=== PATIENT | female | born 1955 | race Caucasian/White ===

== ENCOUNTER → 2016-10-04 | Outpatient (CLI) | payer OTHER ==
[~2016-10-04] MED LIST: CALCTAB5 PO; CETI10TA84 PO; CHOL200010 PO; CPR/500 PO; HYDR12.55 PO; INDO-22 PO; INSDGI SC; IPRA1AER2 INH; IPRASOL4 INH; LEVO-438 PO; LISI-729 PO; METR-163 PO; MISCCAP80 PO; MONT1TAB5 PO; NVLGI SC; PANT40TA PO; QVRINH80 INH; SALI1SPR3 NAE; SIMV40TA4 PO; SUMA50TA15 PO; TNR25 PO
[2016-10-04 18:11] LABS: BASO % 0.6 %; BASO ABS # 0.05 K/uL (0-0.2); COMPLETE YES; EOS % 8.3 %; IG% 0.1 %; LYMPH ABS # 2.03 K/uL (1.2-3.4); MEAN CELL VOLUME 93.5 fL (80-100); MEAN CORPUSCULAR HEMOGLOBIN 30.9 pg (25-34); MEAN CORPUSCULAR HGB CONC 33.1 g/dl (32-36); MEAN PLATELET VOLUME 9.6 fL (7.4-10.4); MONO % 7.1 %; NEUT % 57.9 %; PLATELET COUNT 259 K/uL (130-400); RED BLOOD COUNT 4.17 M/uL (4.2-5.4)
[2016-10-04 18:36] LABS: ALT/SGPT 20 U/L (12-78); AST/SGOT 11 U/L (15-37); BLOOD UREA NITROGEN 27 mg/dl (7-18); BUN/CREATININE RATIO 22.2 (10-20); CALCIUM 8.8 mg/dl (8.5-10.1); CARBON DIOXIDE 32 mmol/L (21-32); CHLORIDE 102 mmol/L (98-107); GLUCOSE 206 mg/dl (70-99); SODIUM 138 mmol/L (136-145)
[2016-10-04 18:47] LABS: ALB/GLOB RATIO 1.2 (0.9-2); ALKALINE PHOSPHATASE 52 U/L (45-117); CHOLESTEROL 219 mg/dl (0-200); CHOLESTEROL/HDL RATIO 3.9; HDL CHOLESTEROL 56 mg/dl; LDL CHOLESTEROL CALCULATED 124 mg/dl; THYROID STIMULATING HORMONE 0.518 uIu/ml (0.300-4.500); TRIGLYCERIDES 196 mg/dl (0-150); VERY LOW DENSITY LIPOPROT CALC 39 mg/dl
[2016-10-06 06:34] LABS: ESTIMATED AVERAGE GLUCOSE 200 mg/dl; HA1C FLAG Normal (Normal)
== END | disposition home or self-care (01) ==
LOC: C.LAB 17:49
PROVIDERS: ATTEND Internal Medicine
DX: E11.65 Type 2 diabetes mellitus with hyperglycemia (principal); E55.9 Vitamin D deficiency, unspecified; D72.829 Elevated white blood cell count, unspecified; I10 Essential (primary) hypertension; E03.9 Hypothyroidism, unspecified

== ENCOUNTER → 2016-11-24 | Outpatient (CLI) | payer OTHER ==
[2016-11-24 16:39] LABS: RATIO 163.6 mcg/mg (0-30.0)
== END | disposition home or self-care (01) ==
LOC: C.LAB1850 15:20
PROVIDERS: ATTEND Internal Medicine
DX: R80.9 Proteinuria, unspecified (principal)

== ENCOUNTER → 2017-01-16 | Outpatient (CLI) | payer OTHER ==
[2017-01-16 13:58] LABS: CREATININE 1.03 mg/dl (0.60-1.20)
[2017-01-16 14:07] LABS: THYROID STIMULATING HORMONE 0.563 uIu/ml (0.300-4.500)
[2017-01-16 14:28] LABS: ESTIMATED AVERAGE GLUCOSE 200 mg/dl; HA1C FLAG Normal (Normal)
== END | disposition home or self-care (01) ==
LOC: C.LAB1850 11:55
PROVIDERS: ATTEND Nurse Practitioner Adult Health
DX: E03.9 Hypothyroidism, unspecified (principal); I10 Essential (primary) hypertension; E78.5 Hyperlipidemia, unspecified; E11.319 Type 2 diabetes mellitus with unspecified diabetic retinopathy without macular edema

== ENCOUNTER → 2017-02-09 | Outpatient (CLI) | payer OTHER ==
[2017-02-09 17:30] LABS: MAGNESIUM 2.2 mg/dl (1.8-2.4)
== END | disposition home or self-care (01) ==
LOC: C.LAB1850 15:01
PROVIDERS: ATTEND Physician Assistant
DX: R25.2 Cramp and spasm (principal)

== ENCOUNTER → 2017-05-28 | Outpatient (CLI) | payer OTHER ==
--- NOTE | 2017-05-29 08:03 | PULMONARY FUNCTION TEST ---
Interpretation of pulmonary function studies based off ATS criteria. SPIROMETRY QUALITY: Flow volume loops do show that the patient had overall poor flow volume loop study which suggests poor quality study. SPIROMETRY: Moderate restrictive ventilatory disease. BRONCHODILATOR: Possible significant bronchodilator response based off the FVC standards, once again overall poor pulmonary flow loop/spirometry. LUNG VOLUMES: Signs of hyperinflation. DIFFUSION CAPACITY: Within normal limits. INTERPRETATION: Suggest mixed obstructive and restrictive ventilatory disease with possible reversible component. MTDD
== END | disposition home or self-care (01) ==
LOC: C.RC 08:51
PROVIDERS: ATTEND Physician Assistant
DX: J45.909 Unspecified asthma, uncomplicated (principal)

== ENCOUNTER → 2017-06-15 | Outpatient (CLI) | payer OTHER ==
[~2017-06-15] MED LIST changes: +SALI-3 NAE; -SALI1SPR3 NAE
[2017-06-15 14:45] LABS: HEMOGLOBIN 13.3 g/dL (12.0-16.0)
[2017-06-15 15:14] LABS: ALBUMIN 3.7 gm/dl (3.4-5.0); ALT/SGPT 24 U/L (12-78); BLOOD UREA NITROGEN 21 mg/dl (7-18); CALCIUM 9.6 mg/dl (8.5-10.1); CARBON DIOXIDE 31 mmol/L (21-32); CHOLESTEROL 223 mg/dl (0-200); CREATININE 1.11 mg/dl (0.60-1.20); GLUCOSE 138 mg/dl (70-99); POTASSIUM 3.7 mmol/L (3.5-5.1); SODIUM 137 mmol/L (136-145)
[2017-06-15 15:20] LABS: CREATININE RANDOM URINE 36.3 mg/dl
[2017-06-15 15:24] LABS: ALKALINE PHOSPHATASE 56 U/L (45-117); AST/SGOT 15 U/L (15-37); LDL CHOLESTEROL CALCULATED 114 mg/dl; TOTAL PROTEIN 7.4 gm/dl (6.4-8.2)
[2017-06-16 06:22] LABS: HEMOGLOBIN A1C 8.4 % (4.5-5.6)
== END | disposition home or self-care (01) ==
LOC: C.LAB1850 13:34
PROVIDERS: ATTEND Nurse Practitioner Adult Health
DX: E11.29 Type 2 diabetes mellitus with other diabetic kidney complication (principal); E03.9 Hypothyroidism, unspecified; I10 Essential (primary) hypertension; E78.5 Hyperlipidemia, unspecified; R80.9 Proteinuria, unspecified; E11.319 Type 2 diabetes mellitus with unspecified diabetic retinopathy without macular edema; E11.65 Type 2 diabetes mellitus with hyperglycemia; E55.9 Vitamin D deficiency, unspecified; Z79.4 Long term (current) use of insulin

== ENCOUNTER → 2017-07-03 | Outpatient (CLI) | payer OTHER ==
[2017-07-03 16:21] LABS: BLOOD UREA NITROGEN 24 mg/dl (7-18); CALCIUM 9.4 mg/dl (8.5-10.1); CARBON DIOXIDE 30 mmol/L (21-32); CREATININE 1.25 mg/dl (0.60-1.20); GLUCOSE 270 mg/dl (70-99); POTASSIUM 4.1 mmol/L (3.5-5.1); SODIUM 137 mmol/L (136-145)
== END | disposition home or self-care (01) ==
LOC: C.LAB1850 15:04
PROVIDERS: ATTEND Nurse Practitioner Adult Health
DX: I10 Essential (primary) hypertension (principal); E78.5 Hyperlipidemia, unspecified; R80.9 Proteinuria, unspecified

== ENCOUNTER → 2017-10-02 | Outpatient (CLI) | payer OTHER ==
[~2017-10-02] MED LIST changes: +BECL80AE7 INH; +IPRA-64 INH; -IPRASOL4 INH; -QVRINH80 INH
--- NOTE | 2017-10-02 09:40 | DIAGNOSTIC IMAGING REPORT ---
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 FINDINGS: Right kidney: 10.9 cm. No hydronephrosis. Normal corticomedullary differentiation and cortical thickness. Left kidney: 11.0 cm. No hydronephrosis. Normal corticomedullary differentiation and cortical thickness. Bladder: No bladder wall thickening. The bilateral ureteral jets were identified. IMPRESSION: Normal renal ultrasound. Electronically signed by: Casimiro Mike M.D. 10/02/2017 9:39 AM Dictated Date/Time: 10/02/2017 9:39 AM
== END | disposition home or self-care (01) ==
LOC: C.ULTR 08:31
PROVIDERS: ATTEND Internal Medicine
DX: E11.29 Type 2 diabetes mellitus with other diabetic kidney complication (principal); E11.65 Type 2 diabetes mellitus with hyperglycemia; Z79.4 Long term (current) use of insulin

== ENCOUNTER 2019-01-15 14:08 | Inpatient (IN) ==
[2019-01-15] MEDS ORDERED: ONDANSETRON INJ 2 MG/ML 2 ML VIAL IV STA (14:24)
[2019-01-15] MEDS ORDERED: MoRPHine SULFATE 4 MG/ML 1 ML CARP\\VIAL IV PRN (14:24)
[2019-01-15] MEDS ORDERED: SODIUM CHLORIDE 0.9% 1000ML 1,000 ML IV SCH (14:30)
--- NOTE | 2019-01-15 14:34 | XRay Report ---
XR chest 1V portable CLINICAL HISTORY: cough COMPARISON STUDY: 01/11/2019 FINDINGS: The heart remains enlarged. There is mild pulmonary vascular congestion. There are mild bas ilar atelectatic changes. There is no lobar consolidation.[ IMPRESSION: No change from the prior study. Persistent mild pulmonary vascular congestion and basilar atelectasis. Electronically signed by: Dash Martinez M.D. 01/15/2019 2:33 PM
[2019-01-15 15:00] LABS: Basophils # (auto) 0.03 K/uL (0-0.2); Basophils % (auto) 0.4 %; Eosinophils # (auto) 0.19 K/uL (0-0.5); Eosinophils % (auto) 2.7 %; Hematocrit (blood only) 35.3 % (37-47); Hemoglobin 11.6 g/dL (12.0-16.0); Immature Granulocytes # (auto) 0.01 K/uL (0.00-0.02); Immature Granulocytes % (auto) 0.1 %; Lymphocytes % (auto) 15.9 %; Mean Corpuscular Hemoglobin 30.7 pg (25-34); Mean Corpuscular Hgb Conc 32.9 g/dL (32-36); Mean Corpuscular Volume 93.4 fL (80-100); Mean Platelet Volume 9.1 fL (7.4-10.4); Monocytes # (auto) 0.53 K/uL (0.11-0.59); Monocytes % (auto) 7.7 %; Neutrophils # (auto) 5.05 K/uL (1.4-6.5); Neutrophils % (auto) 73.2 %; Platelet Count 266 K/uL (130-400); RDW Coefficient of Variation 12.3 % (11.5-14.5); Red Blood Count 3.78 M/uL (4.2-5.4); White Blood Count 6.91 K/uL (4.8-10.8)
[2019-01-15 15:09] LABS: iSTAT Creatinine 1.5 mg/dl (0.6-1.3); iSTAT Hemoglobin 11.2 g/dl (12.0-16.0); iSTAT Ionized Calcium 1.16 mmol/l (1.12-1.32); iSTAT Potassium 3.5 mEq/L (3.3-5.0)
[2019-01-15 15:11] LABS: Partial Thromboplastin Ratio 0.9; Partial Thromboplastin Time 23.4 Seconds (21.0-31.0); Prothrombin Time 10.7 Seconds (9.0-12.0)
[2019-01-15 15:21] LABS: Alanine Aminotransferase 24 U/L (12-78); Albumin Level 3.6 gm/dl (3.4-5.0); Aspartate Aminotransferase 16 U/L (15-37); BUN Creatinine Ratio 13.8 (10-20); Blood Urea Nitrogen 20 mg/dl (7-18); Calcium 8.7 mg/dl (8.5-10.1); Carbon Dioxide 28 mmol/L (21-32); Chloride 98 mmol/L (98-107); Creatinine Clr Calc Pharmacy 39.2 ml/min; Est GFR (African American) 44.2; Est GFR (Non-African American) 38.1; Glucose 259 mg/dl (70-99); Lipase 239 U/L (73-393); Potassium 3.5 mmol/L (3.5-5.1); Sodium 135 mmol/L (136-145)
[2019-01-15 15:26] LABS: Alkaline Phosphatase 55 U/L (45-117); Bilirubin,Total 0.4 mg/dl (0.2-1); Globulin 3.5 gm/dl (2.5-4.0); Total Protein 7.1 gm/dl (6.4-8.2); Troponin I < 0.015 ng/ml (0-0.045)
[2019-01-15 15:49] LABS: Appearance Urine Clear (Clear); Bilirubin Urine Negative (Negative); Blood Urine Trace (Negative); Glucose Urine UA Negative (Negative); Ketones Urine Negative (Negative); Leukocyte Esterase Urine Trace (Negative); Nitrite Urine Negative (Negative); Protein Urine 1+ (Negative); Urobilinogen Urine Negative (Negative); pH Urine 5.5 (4.5-7.5)
[2019-01-15 15:52] LABS: Color Urine Yellow
--- NOTE | 2019-01-15 16:30 | Emergency Department Note ---
General (ED) Blank Date of Service January 15, 2019 I attest that I saw and examined this patient and participated in her care under the direction of Dr. Carvajal. Please see his note for clinical assessment and course. Resident Activity Tracking Resident Involvement: Resident Care Provided Care Provided: Adult ED
[2019-01-15] MEDS ORDERED: IOVERSOL 100ml IV PRN (17:02)
--- NOTE | 2019-01-15 17:15 | CT Scan Report ---
CT abd pelvis oral and IV con CLINICAL HISTORY: right sided pain COMPARISON STUDY: 01/13/2019 TECHNIQUE: The patient was scanned following administration of dilute oral contrast and in a dynamic helical fashion during intravenous administration of 93 cc of Optiray 320. A dose lowering technique was utilized adhering to the principles of ALARA. CT DOSE: 759.81 mGy.cm FINDINGS: Lower chest: There is progressive basilar interstitial thickening/atelectatic change. There are no si gnificant pleural effusions. Liver: There is hepatic steatosis. No focal masses are visualized. Gallbladder: Unremarkable. Spleen: The spleen is mildly enlarged measuring 13.5 cm Pancreas: Unremarkable. Adrenal glands: Unremarkable. Kidneys: There is symmetric renal cortical enhancement. The kidneys are normal in size without hydron ephrosis. Bowel: There are no transition zones to indicate bowel obstruction. There is colonic wall thickening with subtle infiltration of pericolonic fat involving the left colon from the level of the splenic fl exure to the proximal sigmoid. The findings are indicative of a nonspecific colitis. There is sigmoid diverticulosis but no evidence of acute sigmoid diverticulitis. There is no evidence of acute append icitis. Peritoneum: There is minimal free pelvic fluid. There is no free intraperitoneal air. Vasculature: The abdominal aorta is normal in course and caliber. No evidence of proximal celiac or s uperior mesenteric artery stenosis. The inferior mesenteric artery is patent. Adenopathy: None. Pelvic viscera: The bladder, and pelvic viscera are unremarkable. Skeletal structures: No destructive osseous lesions are seen. IMPRESSION: 1. Hepatic steatosis 2. Mild splenomegaly 3. Left colonic wall thickening indicative of a colitis.. 4. No evidence of bowel obstruction. No evidence of free air. Electronically signed by: Dash Martinez M.D. 01/15/2019 5:14 PM
[2019-01-15] MEDS ORDERED: KETOROLAC TROMETHAMINE 15 MG/ML VIAL IV ONE (17:36)
--- NOTE | 2019-01-15 19:05 | Emergency Department Note ---
Entered by Sandra Samaniego acting as a scribe for History of Present Illness General Chief complaint: Abdominal Pain Stated complaint: STOMACH PAIN Time Seen by Provider: 01/15/19 14:16 Source: patient History of Present Illness Onset (ago): day(s) 6 Location: abdomen Severity: severe and similar to prior episodes Pain Consistency: + other (persistent) Maximum Pain Intensity: 8 Quality: + other (abdominal pain) Relieved By: + medication (morphine) Exacerbated By: + movement and + other (coughing) Associated symptoms: + cough, + nausea/vomiting and + other (Positive cons tipation. Negative back pain.); no chest pain Treatments prior to arrival: none The patient is a 63 year old female presenting to the Emergency Department complaining of persistent abdominal pain starting 6 days ago. The patient report that she has severe right-sided abdominal pain. She states that she is nauseous and has vomited. She explains that she has a mild cough. She adds that she has experienced these symptoms before as she has been to the Emergency Room twice in the past week. The patient reports that she is dehydrated. She states that she was recently constipated. She explains that moving around and coughing worsen her abdominal pain. She states that she has been taking Excedrin for her symptoms that has not been helping. She notes that she has not been able to get an appointment with her PCP which is why she has been coming into the ED. She adds that she has an appointment with her PCP in 3 days but that she couldnt wait that long because of her pain. The patient reports that she received Morphine for her abdominal pain when she was last in the ED and that this medication made her feel better. She states that she didnt take any medications for her symptoms [employer]. She denies chest pain and back pain. Home Medications Home Medications Medication Instructions Recorded Confirmed Type ipratropium-albuterol 0.5 mg-3 3 ml INHALATION TID PRN #4 ml 09/16/18 01/15/19 Rx mg(2.5 mg base)/3 mL nebulization soln sumatriptan 50 mg tablet 50 mg PO Q2H PRN #10 tab 09/16/18 01/15/19 Rx arformoterol 15 mcg/2 mL solution 2 ml INH Q12H 10/08/18 01/15/19 History for nebulization fluticasone furoate 100 1 puffs INH DAILY PRN 10/08/18 01/15/19 History mcg-vilanterol 25 mcg/dose inhalation powder insulin glargine (U- 100) 100 30 units SQ HS ml 10/08/18 01/15/19 History unit/mL subcutaneous solution ipratropium 20 mcg-albuterol 100 1 puffs INH QID PRN 10/08/18 01/15/19 History mcg/actuation mist for inhalation methylprednisolone 4 mg tablet 4 mg PO DAILY PRN 10/08/18 01/15/19 History rosuvastatin 5 mg tablet 5 mg PO .COMPLEX tab 10/08/18 01/15/19 History sodium chloride 0.65 % nasal spray 1 sprays INTNAS BID PRN 10/08/18 01/15/19 History aerosol Humalog U- 100 Insulin 100 unit/mL 84 units SQ .COMPLEX #3 vial NS 11/12/18 01/15/19 Rx subcutaneous solution trazodone 50 mg tablet 50 mg PO HS PRN #30 tab 12/06/18 01/15/19 Rx amlodipine 5 mg PO QAM 01/11/19 01/15/19 History aspirin 81 mg PO QAM 01/11/19 01/15/19 History cetirizine 10 mg PO QAM 01/11/19 01/15/19 History chlorthalidone 25 mg PO QAM 01/11/19 01/15/19 History clonidine HCl 0.1 mg PO BID PRN 01/11/19 01/15/19 History guaifenesin [Mucinex] 600 mg PO QAM 01/11/19 01/15/19 History hydrochlorothiazide 12.5 mg PO QAM 01/11/19 01/15/19 History levothyroxine [Unithroid] 88 mcg PO QAM 01/11/19 01/15/19 History losartan 100 mg PO QAM 01/11/19 01/15/19 History montelukast 10 mg PO QAM 01/11/19 01/15/19 History pantoprazole 40 mg PO HS 01/11/19 01/15/19 History potassium chloride 20 meq PO HS 01/11/19 01/15/19 History sertraline 25 mg PO QAM 01/11/19 01/15/19 History dicyclomine 10 mg PO TID #15 cap 01/13/19 01/15/19 Rx ondansetron 4 mg PO Q6H PRN #20 tab 01/13/19 01/15/19 Rx Allergies Allergy/AdvReac Type Severity Reaction Status Date / Time bupropion Allergy Severe muscle Verified 01/15/19 15:45 pains and cramps prochlorperazine Allergy Intermediate restless Verified 01/15/19 15:45 codeine Allergy Mild GI Verified 01/15/19 15:45 INTOLERANCE erythromycin base Allergy Mild DIZZINESS Verified 01/15/19 15:45 levothyroxine Allergy Unknown HIVES Verified 01/15/19 15:45 metformin Allergy Unknown "METRFORMIN Verified 01/15/19 15:45 ALLERGY"?? mold Allergy Unknown CHEST Verified 01/15/19 15:45 CONGESTION paroxetine Allergy Unknown BAD DREAMS Verified 01/15/19 15:45 house dust Allergy Verified 01/15/19 15:45 lisinopril Allergy Verified 01/15/19 15:45 milk AdvReac Unknown GI DISTRESS Verified 01/15/19 15:45 Past Med/Surg History Medical History COPD, moderate (Acute) Chronic bronchitis (Acute) Chronic kidney disease, stage III (moderate) (Acute) Depression with anxiety (Acute) Dyslipidemia (Acute) Esophageal reflux disease (Acute) Hypertension (Acute 06/19/12) Headache, migraine (Acute) Hypertension (Acute) Hypothyroidism (Acute) Internal hemorrhoids (Acute) Microalbuminuria (Acute) Non-proliferative diabetic retinopathy, severe, both eyes (Acute) Osteopenia (Acute) Statin intolerance (Acute) Uncontrolled type 2 diabetes mellitus with kidney complication, with long-term current use of insulin (Acute) Uncontrolled type 2 diabetes mellitus with retinopathy, with long-term current use of insulin (Acute) Vitamin D deficiency disease (Acute) History of in vitro fertilization (Resolved) History of cellulitis History of female infertility History of gastrointestinal hemorrhage History of herpes zoster History of leukocytosis Surgical History H/O dilation and curettage (Resolved) History of incision and drainage (Resolved) H/O sinus surgery History of in vitro fertilization Family History Mother Coronary arteriosclerosis Diabetes CHF (congestive heart failure) Sister Diabetes CHF (congestive heart failure) Cardiac arrest Father Macular degeneration Hypertension Stroke Grandmother (Maternal) Breast cancer Social History marital status: Feels Safe at Home: Yes Smoking Status: Never smoker Hx Alcohol Use: No Hx Substance Use: No Seatbelt Use: always Review of Systems See HPI for pertinent positives & negatives. and A total of 10 systems reviewed and were otherwise negative Physical Exam Vital Signs Vital Signs - 24 hr 01/15/19 14:11 01/15/19 15:36 01/15/19 16:45 Temperature 36.6 C Temperature Source Oral Sepsis Recent Fever Within 48 Hours No Sepsis New/Unexplained Change in Mental Status No Sepsis Action Taken by Nursing No Action Required Pulse Rate 80 Pulse Rate [Left] 73 71 Pulse Rhythm [Left] Regular Respiratory Rate 18 16 20 Respiratory Effort / Characteristics Non-Labored Non-Labored Non-Labored Respiratory Depth Normal Normal Normal Respiratory Pattern Regular Regular Blood Pressure 147/85 H Blood Pressure [Left Arm] 123/80 177/99 H Blood Pressure Mean 105 Blood Pressure Mean [Left Arm] 94 125 Pulse Oximetry 97 96 93 Oxygen Delivery Method Room Air Room Air Room Air 01/15/19 18:20 Temperature Temperature Source Sepsis Recent Fever Within 48 Hours Sepsis New/Unexplained Change in Mental Status Sepsis Action Taken by Nursing Pulse Rate Pulse Rate [Left] 69 Pulse Rhythm [Left] Regular Respiratory Rate 20 Respiratory Effort / Characteristics Non-Labored Respiratory Depth Normal Respiratory Pattern Regular Blood Pressure Blood Pressure [Left Arm] 142/88 H Blood Pressure Mean Blood Pressure Mean [Left Arm] 106 Pulse Oximetry 92 Oxygen Delivery Method Room Air GENERAL: Patient is awake, alert, and in no acute distress.Patient is somewhat anxious appearing and uncomfortable. EYES: The conjunctivae are clear. The pupils are round and reactive. EARS, NOSE, MOUTH AND THROAT: The nose is without any evidence of any deformity. Mucous membranes are moist.Tongue is midline NECK: The neck is nontender and supple. RESPIRATORY: Normal respiratory effort is noted. There is no evidence of wheezing rhonchi or rales to auscultation. CARDIOVASCULAR: Regular rate and rhythm noted. There no murmurs rubs or gallops normal S1 normal S2 GASTROINTESTINAL: Mildly distended but soft. Right sided abdominal pain to palpation. No guarding or rigidity. Bowel sounds are present in all quadrants. BACK: No midline tenderness or or step-off noted range of motion in flexion ex tension as well as rotation no signs of muscle spasm noted. MUSCULOSKELETAL/EXTREMITIES: There is no evidence of gross deformity. Full range of motion is noted in the hips and shoulders. SKIN: There is no obvious evidence of any rash. There are no petechiae, pallor or cyanosis noted. NEUROLOGIC: Patient is awake alert and oriented x3. Course 1416: EMR reviewed. Recent Abdominal CT and Gallbladder US were normal. 1419: The patient was evaluated in room A9B, and a complete history and physical examination were performed. 1658: I reevaluated the patient at this time. 1820: I discussed the patient's case with Dr. Bonilla [facility] hospitalist. He will evaluate the patient for further management. Administered Medications Ioversol (Optiray 320 100ml) 93 ml IV ONCE PRN PRN Reason: Interaction Checking Stop: 01/19/19 17:01 Last Admin: 01/15/19 17:02 Dose: 93 ml Documented by: [id number] Morphine Sulfate (Morphine Sulfate) 4 mg IV Q15M PRN PRN Reason: Pain Stop: 01/29/19 14:23 Last Admin: 01/15/19 15:38 Dose: 4 mg Documented by: [id number] Discontinued Medications Sodium Chloride (Nss 1000ml) 1,000 mls @ 999 mls/hr IV .Q1H1M NATIVIDAD Stop: 01/15/19 15:30 Last Infusion: 01/15/19 16:44 Dose: 0 mls/hr Documented by: [id number] Admin: 01/15/19 15:39 Dose: 999 mls/hr Documented by: [id number] Ketorolac Tromethamine (Toradol) 10 mg IV NOW ONE Stop: 01/15/19 17:37 Last Admin: 01/15/19 17:56 Dose: 10 mg Documented by: [id number] Ondansetron HCl (Zofran) 4 mg IV NOW STA Stop: 01/15/19 14:25 Last Admin: 01/15/19 15:38 Dose: 4 mg Documented by: [id number] Medical Decision Making Differential Diagnosis Differential diagnoses includes but is not limited to gastritis, peptic ulcer disease, GERD, gallbladder disease, pancreatitis, small bowel obstruction, acute coronary syndrome, pericarditis, ischemic bowel, irritable bowel disease, irritable bowel syndrome, appendicitis, diverticulitis, malignancy, hernia, urinary tract infection, torsion, perforation, trauma, infectious. Medical Records Attestation: I reviewed the patient's medical records. Home Medications Current Medication List: was personally reviewed by me Laboratory Data Attestation: I reviewed the patient's lab results. Result diagrams: 01/15/19 14:50 01/15/19 14:50 Lab Results 01/15/19 01/15/19 01/15/19 Range/Units 14:50 14:50 14:50 WBC 6.91 (4.8-10.8) K/uL RBC 3.78 L (4.2-5.4) M/uL Hgb 11.6 L (12.0-16.0) g/dL POC Hgb (12.0-16.0) g/dl Hct 35.3 L (37-47) % POC Hct (37-47) % MCV 93.4 (80-100) fL MCH 30.7 (25-34) pg MCHC 32.9 (32-36) g/dL RDW Std Deviation 42.0 (36.4-46.3) fL RDW Coeff of Mcaky 12.3 (11.5-14.5) % Plt Count 266 (130-400) K/uL MPV 9.1 (7.4-10.4) fL Immature Gran % (Auto) 0.1 % Neut % (Auto) 73.2 % Lymph % (Auto) 15.9 % [place] % (Auto) 7.7 % Eos % (Auto) 2.7 % Baso % (Auto) 0.4 % Immature Gran # (Auto) 0.01 (0.00-0.02) K/uL Neut # (Auto) 5.05 (1.4-6.5) K/uL Lymph # (Auto) 1.10 L (1.2-3.4) K/uL [place] # (Auto) 0.53 (0.11-0.59) K/uL Eos # (Auto) 0.19 (0-0.5) K/uL Baso # (Auto) 0.03 (0-0.2) K/uL PT 10.7 (9.0-12.0) Seconds INR 1.0 (0.9-1.1) APTT 23.4 (21.0-31.0) Seconds PTT Ratio 0.9 POC Sodium (135-144) mEq/L Sodium 135 L (136-145) mmol/L POC Potassium (3.3-5.0) mEq/L Potassium 3.5 (3.5-5.1) mmol/L POC Chloride (101-112) mEq/L Chloride 98 (98-107) mmol/L Carbon Dioxide 28 (21-32) mmol/L POC Total CO2 (24-31) mEq/l Anion Gap 9.0 (3-11) POC Anion Gap (16-25) mmol/L POC BUN (7-18) mg/dl BUN 20 H (7-18) mg/dl Creatinine 1.47 H (0.6-1.2) mg/dl POC Creatinine (0.6-1.3) mg/dl Est Cr Clr Drug Dosing 39.2 ml/min Est GFR ( Amer) 44.2 Est GFR (Non-Af Amer) 38.1 BUN/Creatinine Ratio 13.8 (10-20) Glucose 259 H (70-99) mg/dl POC Glucose (other) (70-99) mg/dl Calcium 8.7 (8.5-10.1) mg/dl POC Ioniz Calcium Emily (1.12-1.32) mmol/l Total Bilirubin 0.4 (0.2-1) mg/dl AST 16 (15-37) U/L ALT 24 (12-78) U/L Alkaline Phosphatase 55 (45-117) U/L Troponin I < 0.015 (0-0.045) ng/ml Total Protein 7.1 (6.4-8.2) gm/dl Albumin 3.6 (3.4-5.0) gm/dl Globulin 3.5 (2.5-4.0) gm/dl Albumin/Globulin Ratio 1.0 (0.9-2) Lipase 239 (73-393) U/L Urine Color Urine Appearance (Clear) Urine pH (4.5-7.5) Ur Specific [place] (1.000-1.030) Urine Protein (Negative) Urine Glucose (UA) (Negative) Urine Ketones (Negative) Urine Blood (Negative) Urine Nitrite (Negative) Urine Bilirubin (Negative) Urine Urobilinogen (Negative) Ur Leukocyte Esterase (Negative) Urine WBC (Auto) Urine RBC (Auto) U Hyaline Cast (Auto) U Epithel Cells (Auto) Urine Bacteria (Auto) Ur Renal Epithelial Cell Urine Crystals Calcium Oxalate Crystal Uric Acid Crystals Triple Phos Crystals Other Crystals Amorphous Sediment Granular Casts Waxy Casts RBC Casts WBC Casts Pathogenic Casts Other Casts Urine Mucus Urine Other Urine Trichomonas Urine Yeast Urine Sperm Ur Oval Fat Bodies 01/15/19 01/15/19 Range/Units 14:56 15:30 WBC (4.8-10.8) K/uL RBC (4.2-5.4) M/uL Hgb (12.0-16.0) g/dL POC Hgb 11.2 L (12.0-16.0) g/dl Hct (37-47) % POC Hct 33 L (37-47) % MCV (80-100) fL MCH (25-34) pg MCHC (32-36) g/dL RDW Std Deviation (36.4-46.3) fL RDW Coeff of Mckay (11.5-14.5) % Plt Count (130-400) K/uL MPV (7.4-10.4) fL Immature Gran % (Auto) % Neut % (Auto) % Lymph % (Auto) % [place] % (Auto) % Eos % (Auto) % Baso % (Auto) % Immature Gran # (Auto) (0.00-0.02) K/uL Neut # (Auto) (1.4-6.5) K/uL Lymph # (Auto) (1.2-3.4) K/uL [place] # (Auto) (0.11-0.59) K/uL Eos # (Auto) (0-0.5) K/uL Baso # (Auto) (0-0.2) K/uL PT (9.0-12.0) Seconds INR (0.9-1.1) APTT (21.0-31.0) Seconds PTT Ratio POC Sodium 134 L (135-144) mEq/L Sodium (136-145) mmol/L POC Potassium 3.5 (3.3-5.0) mEq/L Potassium (3.5-5.1) mmol/L POC Chloride 96 L (101-112) mEq/L Chloride (98-107) mmol/L Carbon Dioxide (21-32) mmol/L POC Total CO2 27 (24-31) mEq/l Anion Gap (3-11) POC Anion Gap 16.0 (16-25) mmol/L POC BUN 21 H (7-18) mg/dl BUN (7-18) mg/dl Creatinine (0.6-1.2) mg/dl POC Creatinine 1.5 H (0.6-1.3) mg/dl Est Cr Clr Drug Dosing ml/min Est GFR ( Amer) Est GFR (Non-Af Amer) BUN/Creatinine Ratio (10-20) Glucose (70-99) mg/dl POC Glucose (other) 263 H (70-99) mg/dl Calcium (8.5-10.1) mg/dl POC Ioniz Calcium Emily 1.16 (1.12-1.32) mmol/l Total Bilirubin (0.2-1) mg/dl AST (15-37) U/L ALT (12-78) U/L Alkaline Phosphatase (45-117) U/L Troponin I (0-0.045) ng/ml Total Protein (6.4-8.2) gm/dl Albumin (3.4-5.0) gm/dl Globulin (2.5-4.0) gm/dl Albumin/Globulin Ratio (0.9-2) Lipase (73-393) U/L Urine Color Yellow Urine Appearance Clear (Clear) Urine pH 5.5 (4.5-7.5) Ur Specific [place] 1.020 (1.000-1.030) Urine Protein 1+ H (Negative) Urine Glucose (UA) Negative (Negative) Urine Ketones Negative (Negative) Urine Blood Trace H (Negative) Urine Nitrite Negative (Negative) Urine Bilirubin Negative (Negative) Urine Urobilinogen Negative (Negative) Ur Leukocyte Esterase Trace H (Negative) Urine WBC (Auto) Cancelled Urine RBC (Auto) Cancelled U Hyaline Cast (Auto) Cancelled U Epithel Cells (Auto) Cancelled Urine Bacteria (Auto) Cancelled Ur Renal Epithelial Cell Cancelled Urine Crystals Cancelled Calcium Oxalate Crystal Cancelled Uric Acid Crystals Cancelled Triple Phos Crystals Cancelled Other Crystals Cancelled Amorphous Sediment Cancelled Granular Casts Cancelled Waxy Casts Cancelled RBC Casts Cancelled WBC Casts Cancelled Pathogenic Casts Cancelled Other Casts Cancelled Urine Mucus Cancelled Urine Other Cancelled Urine Trichomonas Cancelled Urine Yeast Cancelled Urine Sperm Cancelled Ur Oval Fat Bodies Cancelled Imaging Data Radiologist's Impression: Radiology results as stated below per my review and the radiologist's interpretation: CT abd pelvis oral and IV con CLINICAL HISTORY: right sided pain COMPARISON STUDY: 01/13/2019 TECHNIQUE: The patient was scanned following administration of dilute oral contrast and in a dynamic helical fashion during intravenous administration of 93 cc of Optiray 320. A dose lowering technique was utilized adhering to the principles of ALARA. CT DOSE: 759.81 mGy.cm FINDINGS: Lower chest: There is progressive basilar interstitial thickening/atelectatic change. There are no significant pleural effusions. Liver: There is hepatic steatosis. No focal masses are visualized. Gallbladder: Unremarkable. Spleen: The spleen is mildly enlarged measuring 13.5 cm Pancreas: Unremarkable. Adrenal glands: Unremarkable. Kidneys: There is symmetric renal cortical enhancement. The kidneys are normal in size without hydronephrosis. Bowel: There are no transition zones to indicate bowel obstruction. There is colonic wall thickening with subtle infiltration of pericolonic fat involving the left colon from the level of the splenic flexure to the proximal sigmoid. The findings are indicative of a nonspecific colitis. There is sigmoid diverticulosis but no evidence of acute sigmoid diverticulitis. There is no evidence of acute appendicitis. Peritoneum: There is minimal free pelvic fluid. There is no free intraperitoneal air. Vasculature: The abdominal aorta is normal in course and caliber. No evidence of proximal celiac or superior mesenteric artery stenosis. The inferior mesenteric artery is patent. Adenopathy: None. Pelvic viscera: The bladder, and pelvic viscera are unremarkable. Skeletal structures: No destructive osseous lesions are seen. IMPRESSION: 1. Hepatic steatosis 2. Mild splenomegaly 3. Left colonic wall thickening indicative of a colitis.. 4. No evidence of bowel obstruction. No evidence of free air. Electronically signed by: Dash Martinez M.D. 01/15/2019 5:14 PM XR chest 1V portable CLINICAL HISTORY: cough COMPARISON STUDY: 01/11/2019 FINDINGS: The heart remains enlarged. There is mild pulmonary vascular congestion. There are mild basilar atelectatic changes. There is no lobar con solidation.[ IMPRESSION: No change from the prior study. Persistent mild pulmonary vascular congestion and basilar atelectasis. Electronically signed by: Dash Martinez M.D. 01/15/2019 2:33 PM Blood Pressure Blood Pressure Findings: Elevated blood pressure Blood Pressure Disposition: further management by hospitalist MDM Narrative The patient is a 63-year-old female who presented to the emergency department for an evaluation of right-sided abdominal pain. The patient states that she has right-sided abdominal pain which is worse when she coughs. It appears to be mostly in the right side but it is very reproducible to palpation. There was no signs of rash. The patient was seen previously at our facility with similar complaints. No definite abnormality could be found on laboratory or radiographic studies. Patient returns with significant pain. She was treated with IV fluids IV pain medication and IV antiemetics. She was reevaluated multiple times. This time the CT the abdomen and pelvis using both oral and IV contrast was obtained. Still no answer could be found. I discussed the patient's laboratory and radiographic studies with her. I was concerned that this could be consistent with rectus abdominal muscle strain given that the pain is been ongoing for 6 days and appears to be worsened with coughing but the patient was concerned because of the amount of pain she is been in and is unable to tolerate this pain at home. For this reason I discussed her case with the on-call [facility] hospitalist group. They have agreed to evaluate the patient in the emergency department for further management and disposition. Impression & Plan Right sided abdominal pain Discharge Plan Visit Data Chief Complaint: Abdominal Pain Stated Complaint: STOMACH PAIN ED Provider: Otis Carvajal ED Midlevel Provider: Diana Scruggs Discharge Problem: Right sided abdominal pain Patient Disposition: Being Evaluated by Hospitalist Forms Stand Alone Forms: Call Back Authorization, [facility] Prescriptions Prescriptions: No Action insulin lispro [Humalog U-100 Insulin] 100 unit/mL solution 84 units SQ .COMPLEX Qty: 3 RF: 5 trazodone 50 mg tablet 50 mg PO HS PRN (Reason: insomnia) Qty: 30 RF: 5 sumatriptan succinate 50 mg tablet 50 mg PO Q2H PRN (Reason: migraine headache) Qty: 10 RF: 5 ipratropium-albuterol 0.5 mg-3 mg(2.5 mg base)/3 mL solution for nebulization 3 ml inhalation TID PRN (Reason: wheezing) Qty: 4 RF: 0 Combivent Respimat 20-100 mcg/actuation mist 1 puffs INH QID PRN (Reason: Shortness Of Breath) RF: 0 Brovana 15 mcg/2 mL solution for nebulization 2 ml INH Q12H RF: 0 Breo Ellipta 100-25 mcg/dose blister with device 1 puffs INH DAILY PRN (Reason: Allergy Symptoms) RF: 0 rosuvastatin 5 mg tablet 5 mg PO .COMPLEX RF: 0 methylprednisolone 4 mg tablet 4 mg PO DAILY PRN (Reason: Hives) RF: 0 sodium chloride [[place] Saline] 0.65 % aerosol,spray 1 sprays INTNAS BID PRN (Reason: Allergy Symptoms) RF: 0 Lantus U-100 Insulin 100 unit/mL solution 30 units SQ HS RF: 0 clonidine HCl 0.1 mg tablet 0.1 mg PO BID PRN (Reason: hypertensive emergency) RF: 0 cetirizine 10 mg tablet 10 mg PO QAM RF: 0 chlorthalidone 25 mg tablet 25 mg PO QAM RF: 0 amlodipine 5 mg tablet 5 mg PO QAM RF: 0 levothyroxine [Unithroid] 88 mcg tablet 88 mcg PO QAM RF: 0 pantoprazole 40 mg tablet,delayed release (DR/EC) 40 mg PO HS RF: 0 sertraline 25 mg tablet 25 mg PO QAM RF: 0 montelukast 10 mg tablet 10 mg PO QAM RF: 0 losartan 100 mg tablet 100 mg PO QAM RF: 0 potassium chloride 20 mEq tablet extended release 20 meq PO HS RF: 0 aspirin 81 mg Tablet,Delayed Release (Dr/Ec) 81 mg PO QAM RF: 0 hydrochlorothiazide 12.5 mg capsule 12.5 mg PO QAM RF: 0 guaifenesin [Mucinex] 600 mg Tablet Extended Release 12hr 600 mg PO QAM RF: 0 dicyclomine 10 mg capsule 10 mg PO TID Qty: 15 RF: 0 ondansetron 4 mg tablet,disintegrating 4 mg PO Q6H PRN (Reason: nausea and vomiting) Qty: 20 RF: 0 Referrals Referrals: Corey Mcghee MD [Primary Care Provider] - The scribe's documentation has been prepared under my direction and personally reviewed by me in its entirety. I confirm that the note above accurately reflects all work, treatment, procedures, and medical decision making performed by me.
--- NOTE | 2019-01-15 19:19 | History & Physical Report ---
Date of Service January 15, 2019 Assessment & Plan (1) Right sided abdominal pain: Uncertain etiology GB US noted for sludge and 6mm CBD, could be a stone not visualized LFTs WNL making this less likely but it does appear that this pain has been occurring for some time Possibly made worse with acute GE? MRCP pending t/c HIDA scan, GI c/s if workup continues to be negative Clears, IVF Possible that this is some sort of torn abd muscle from prolonged emesis and coughing episodes, however pt endorses that it is in the same location as the pains she has been having intermittently over the last year. It is also a more intense version of that same pain. Heating packs Toradol, morphine (2) Gastroenteritis: Appears to be improving No recent emesis IVF (3) Chronic kidney disease, stage III (moderate): Baseline cr 1.6 Cr 1.5 on admission Monitor (4) COPD, moderate: continue home meds Takes PRN prednisone <once a month for breathing issues (5) Depression with anxiety: continue home meds (6) Dyslipidemia: Holding statin (7) Esophageal reflux disease: continue home meds (8) Hypertension: continue home meds (9) Headache, migraine: PRN triptan (10) Hypothyroidism: continue home meds (11) Uncontrolled type 2 diabetes mellitus with kidney complication, with long- term current use of insulin: Holding home insulin given limited PO SSI PRN A1c pending (12) DVT prophylaxis: SCDs History of Present Illness Primary Care Provider: Corey Mcghee MD 63 y/o F c/o abd pain. Pt states that she has been having sharp, stabbing R sided abd pain for the past year. It would come and go periodically, but was not a constant issue. She states she would have emesis shortly after eating about once every two weeks and pain with correlate with this. She states she could not eat any type of gravy, milk, fatty foods, but this also happened at times with spaghetti or other items that she would be able to tolerate other times. On Thursday, pt's started with "the flu". This is described as cramping abd pain, n/v/d. Pt woke at 4a with the same sx, although she did not have diarrhea. She was constipated instead. She states she had about 12 hrs of frequent vomiting. She was seen in the ED on Thursday and sent home. She returned about 36 hours later because of abd pain. She had a neg work-up, including GB US and CTAP. She has continued to feel unwell and returned again tonight due to pain. She has not had emesis in the last few days, but has been eating toast and other light items and taking zofran. Pt feels she has two different types of abd pain currently. She has a cramping, aching pain that is across her entire abd. She also notes a much more intense and frequent version of the R sided, sharp, stabbing pain that she has been having intermittently for the last year. It is far more painful "like a knife stabbing me" and it is happening more often. It was especially worse when she was having severe emesis prior and now that this has stopped, it is much worse with coughing or any movement. This pain is in the same location as it has been over the last year, but much more intense. She says she has never had pain like this prior. She had fever/chills initially, but this has stopped. She did not have any emesis yesterday or today, but states that "I was close to throwing up" when they took her to CT scan today. Pt denies chest pain, LE pain or swelling. Pt does have SOB with prolonged coughing, however is a baseline issue for her. Pt was given morphine in the ED and this has not helped at all with the stabbing pain. Allergies Allergy/AdvReac Type Severity Reaction Status Date / Time bupropion Allergy Severe muscle Verified 01/15/19 15:45 pains and cramps prochlorperazine Allergy Intermediate restless Verified 01/15/19 15:45 codeine Allergy Mild GI Verified 01/15/19 15:45 INTOLERANCE erythromycin base Allergy Mild DIZZINESS Verified 01/15/19 15:45 levothyroxine Allergy Unknown HIVES Verified 01/15/19 15:45 metformin Allergy Unknown "METRFORMIN Verified 01/15/19 15:45 ALLERGY"?? mold Allergy Unknown CHEST Verified 01/15/19 15:45 CONGESTION paroxetine Allergy Unknown BAD DREAMS Verified 01/15/19 15:45 house dust Allergy Verified 01/15/19 15:45 lisinopril Allergy Verified 01/15/19 15:45 milk AdvReac Unknown GI DISTRESS Verified 01/15/19 15:45 Home Medications Home Medications Medication Instructions Recorded Confirmed Type ipratropium-albuterol 0.5 mg-3 3 ml INHALATION TID PRN #4 ml 09/16/18 01/15/19 Rx mg(2.5 mg base)/3 mL nebulization soln sumatriptan 50 mg tablet 50 mg PO Q2H PRN #10 tab 09/16/18 01/15/19 Rx arformoterol 15 mcg/2 mL solution 2 ml INH Q12H 10/08/18 01/15/19 History for nebulization fluticasone furoate 100 1 puffs INH DAILY PRN 10/08/18 01/15/19 History mcg-vilanterol 25 mcg/dose inhalation powder insulin glargine (U- 100) 100 30 units SQ HS ml 10/08/18 01/15/19 History unit/mL subcutaneous solution ipratropium 20 mcg-albuterol 100 1 puffs INH QID PRN 10/08/18 01/15/19 History mcg/actuation mist for inhalation methylprednisolone 4 mg tablet 4 mg PO DAILY PRN 10/08/18 01/15/19 History rosuvastatin 5 mg tablet 5 mg PO .COMPLEX tab 10/08/18 01/15/19 History sodium chloride 0.65 % nasal spray 1 sprays INTNAS BID PRN 10/08/18 01/15/19 History aerosol Humalog U- 100 Insulin 100 unit/mL 84 units SQ .COMPLEX #3 vial NS 11/12/18 01/15/19 Rx subcutaneous solution trazodone 50 mg tablet 50 mg PO HS PRN #30 tab 12/06/18 01/15/19 Rx amlodipine 5 mg PO QAM 01/11/19 01/15/19 History aspirin 81 mg PO QAM 01/11/19 01/15/19 History cetirizine 10 mg PO QAM 01/11/19 01/15/19 History chlorthalidone 25 mg PO QAM 01/11/19 01/15/19 History clonidine HCl 0.1 mg PO BID PRN 01/11/19 01/15/19 History guaifenesin [Mucinex] 600 mg PO QAM 01/11/19 01/15/19 History hydrochlorothiazide 12.5 mg PO QAM 01/11/19 01/15/19 History levothyroxine [Unithroid] 88 mcg PO QAM 01/11/19 01/15/19 History losartan 100 mg PO QAM 01/11/19 01/15/19 History montelukast 10 mg PO QAM 01/11/19 01/15/19 History pantoprazole 40 mg PO HS 01/11/19 01/15/19 History potassium chloride 20 meq PO HS 01/11/19 01/15/19 History sertraline 25 mg PO QAM 01/11/19 01/15/19 History dicyclomine 10 mg PO TID #15 cap 01/13/19 01/15/19 Rx ondansetron 4 mg PO Q6H PRN #20 tab 01/13/19 01/15/19 Rx Past Med/Surg History Medical History COPD, moderate (Acute) Chronic bronchitis (Acute) Chronic kidney disease, stage III (moderate) (Acute) Depression with anxiety (Acute) Dyslipidemia (Acute) Esophageal reflux disease (Acute) Hypertension (Acute 06/19/12) Headache, migraine (Acute) Hypertension (Acute) Hypothyroidism (Acute) Internal hemorrhoids (Acute) Microalbuminuria (Acute) Non-proliferative diabetic retinopathy, severe, both eyes (Acute) Osteopenia (Acute) Statin intolerance (Acute) Uncontrolled type 2 diabetes mellitus with kidney complication, with long-term current use of insulin (Acute) Uncontrolled type 2 diabetes mellitus with retinopathy, with long-term current use of insulin (Acute) Vitamin D deficiency disease (Acute) History of in vitro fertilization (Resolved) History of cellulitis History of female infertility History of gastrointestinal hemorrhage History of herpes zoster History of leukocytosis Surgical History H/O dilation and curettage (Resolved) History of incision and drainage (Resolved) H/O sinus surgery History of in vitro fertilization Family History Mother Coronary arteriosclerosis Diabetes CHF (congestive heart failure) Sister Diabetes CHF (congestive heart failure) Cardiac arrest Father Macular degeneration Hypertension Stroke Grandmother (Maternal) Breast cancer Social History marital status: Feels Safe at Home: Yes Smoking Status: Never smoker Hx Alcohol Use: No Hx Substance Use: No Seatbelt Use: always Review of Systems Review of Systems: Pertinent positives and negatives reviewed in HPI--all others negative Physical Exam Constitutional: WD/WN, vitals as above Eyes: normal visual zaldivar by confrontation and + anicteric sclerae Neck: normal visual inspection and trachea midline Respiratory: normal respiratory effort, lungs clear to auscultation Cardiovascular: Rate/Rhythm: regular rate and regular rhythm Gastrointestinal (Abdomen): Inspection/Auscultation: + abdomen distended Percussion/Palpation: + abdomen tender (R sided lateral and RUQ pain) and abdomen soft Musculoskeletal: Head/Neck/Chest: normocephalic and head atraumatic negative for edema, peripheral pulses intact Skin: no rashes, warm and dry Neurologic: awake; not confused Speech / Cognition: normal speech Psychiatric: A+Ox3, euthymic affect Results & Data Vital Signs (Past 12 Hours) Vital Signs Temp Pulse Pulse Resp BP BP Pulse Ox 01/15/19 18:20 69 20 142/88 H 92 01/15/19 16:45 71 20 177/99 H 93 01/15/19 15:36 73 16 123/80 96 01/15/19 14:11 36.6 C 80 18 147/85 H 97 Diagnostic Findings CXR: neg for acute CTAP: hepatic steatosis, mild splenomegaly, L sided colitis GB US: sludge, no stones, CBD with slight distention at 6mm Code Status & VTE Plan Code Status Full code VTE Prophylaxis Plan VTE Prophylaxis will be ordered: Yes PG Care Time/CCT Total # of Minutes Spent Total Time Spent with Patient: Total time spent is greater than 50% in coordination of care (as documented) at patient's floor/unit and/or counseling patient:
[2019-01-15] MEDS ORDERED: GLUCAGON FOR INJ 1 MG VIAL SQ PRN (20:05)
[2019-01-15] MEDS ORDERED: ACETAMINOPHEN 325 MG TAB PO PRN (20:05)
[2019-01-15] MEDS ORDERED: GLUCOSE 40% GEL 15 GM TUBE PO PRN (20:05)
[2019-01-15] MEDS ORDERED: ONDANSETRON 4 MG OD TAB PO PRN (20:05)
[2019-01-15] MEDS ORDERED: CARBOHYDRATES FOR HYPOGLYCEMIA PO PRN (20:05)
[2019-01-15] MEDS ORDERED: ALBUT/IPRATROP 3MG/0.5MG NEB 3 ML VIAL INH PRN (20:05)
[2019-01-15] MEDS ORDERED: SUMAtriptan succinate 50 MG TAB PO PRN (20:05)
[2019-01-15] MEDS ORDERED: KETOROLAC TROMETHAMINE 15 MG/ML VIAL IV PRN (20:05)
[2019-01-15] MEDS ORDERED: IPRATROPIUM BROMIDE/ALBUTEROL respimat INH INH PRN (20:05)
[2019-01-15] MEDS ORDERED: MoRPHine SULFATE 2 MG/ML CARP IV PRN (20:05)
[2019-01-15] MEDS ORDERED: GLUCOSE 10 TABS/TUBE PO PRN (20:05)
[2019-01-15] MEDS ORDERED: MAGNESIUM HYDROXIDE SUSP 30 ML UDC PO PRN (20:05)
[2019-01-15] MEDS ORDERED: SODIUM CHLORIDE 0.65% NA SOLN 45 ML (OCEAN) PRN (20:05)
[2019-01-15] MEDS ORDERED: TRAZODONE HCL 50 MG TAB PO PRN (20:05)
[2019-01-15] MEDS ORDERED: cloNIDine HCl 0.1 MG TAB PO PRN (20:05)
[2019-01-15] MEDS ORDERED: methylPREDNISolone 4 MG TAB PO PRN (20:05)
[2019-01-15] MEDS ORDERED: DEXTROSE 50% 50 ML SYRINGE IV PRN (20:05)
[2019-01-15] MEDS: NSS + 20MEQ KCL 20 MEQ/1,000 ML BAG IV SCH (20:42)
[2019-01-15] MEDS ORDERED: POTASSIUM CHLORIDE 20 MEQ TABCR PO SCH (21:00)
[2019-01-15] MEDS: ARFORMOTEROL TART 15MCG/2ML VIAL INH SCH (21:08)
[2019-01-15] MEDS: PANTOprazole 40 MG TAB PO SCH (21:51)
[2019-01-15] MEDS: DICYCLOMINE HCL 10 MG CAP PO SCH (21:51)
[2019-01-15] MEDS: INSULIN ASPART 100 UNITS/ML 3 ML PEN SC SCH (21:52)
--- NOTE | 2019-01-15 22:08 | Magnetic Resonance Report ---
MR MRCP CLINICAL HISTORY: Abdominal pain. Biliary sludge. Common bile duct dilatation. COMPARISON STUDY: CT scan dated 01/15/2019, ultrasound dated 01/13/2019 FINDINGS: Images were acquired in the axial and coronal planes. MIP images were obtained. No gallstones are visualized. No ductal filling defects are visualized. There is no biliary ductal dilatation. The common bile duct measures 5 mm. An indentation within the superior common bile duct/common hepatic duct is felt to be secondary to a crossing vessel The pancreatic duct appears normal. IMPRESSION: 1. No evidence of ductal dilatation 2. No calculi identified 3. Focal narrowing of the superior common bile duct/common hepatic duct, is likely secondary to a crop and soil scientist ssing vessel. Electronically signed by: Dash Martinez M.D. 01/15/2019 10:06 PM
[2019-01-16] MEDS: LEVOTHYROXINE SODIUM 88 MCG TABLET PO SCH (06:22)
[2019-01-16 06:33] LABS: Alanine Aminotransferase 20 U/L (12-78); Aspartate Aminotransferase 15 U/L (15-37); BUN Creatinine Ratio 13.4 (10-20); Bilirubin Direct < 0.1 mg/dl (0-0.2); Blood Urea Nitrogen 16 mg/dl (7-18); Calcium 8.1 mg/dl (8.5-10.1); Carbon Dioxide 27 mmol/L (21-32); Chloride 104 mmol/L (98-107); Est GFR (African American) 56.5; Est GFR (Non-African American) 48.7; Glucose 123 mg/dl (70-99); Potassium 3.8 mmol/L (3.5-5.1); Sodium 137 mmol/L (136-145)
[2019-01-16 06:38] LABS: Alkaline Phosphatase 44 U/L (45-117); Bilirubin,Total 0.3 mg/dl (0.2-1); Total Protein 5.7 gm/dl (6.4-8.2)
[2019-01-16] MEDS: ARFORMOTEROL TART 15MCG/2ML VIAL INH SCH ×2 (07:02→20:02)
[2019-01-16] MEDS: NSS + 20MEQ KCL 20 MEQ/1,000 ML BAG IV SCH ×2 (07:12→20:44)
[2019-01-16] MEDS: INSULIN ASPART 100 UNITS/ML 3 ML PEN SC SCH ×4 (08:57→20:48)
[2019-01-16] MEDS ORDERED: hydroCHLOROthiazide 25 MG TAB PO SCH (09:00)
[2019-01-16] MEDS ORDERED: CHLORTHALIDONE 25 MG TAB PO SCH (09:00)
[2019-01-16] MEDS: DICYCLOMINE HCL 10 MG CAP PO SCH ×3 (09:01→20:47)
[2019-01-16] MEDS: LOSARTAN POTASSIUM 50 MG TAB PO SCH (09:02)
[2019-01-16] MEDS: AMLODIPINE BESYLATE 5 MG TAB PO SCH (09:05)
[2019-01-16] MEDS: guaiFENesin 600 MG TABCR PO SCH (09:05)
[2019-01-16] MEDS: MONTELUKAST SODIUM 10 MG TABLET PO SCH (09:05)
[2019-01-16] MEDS: SERTRALINE HCL 50 MG TABLET PO SCH (09:05)
[2019-01-16] MEDS: CETIRIZINE HCL 10 MG TABLET PO SCH (09:06)
[2019-01-16 10:07] LABS: Hemoglobin 10.3 g/dL (12.0-16.0); Mean Corpuscular Hemoglobin 30.9 pg (25-34); Mean Corpuscular Hgb Conc 33.2 g/dL (32-36); Mean Corpuscular Volume 93.1 fL (80-100); Platelet Count 226 K/uL (130-400); RDW Coefficient of Variation 12.3 % (11.5-14.5); RDW Standard Deviation 42.2 fL (36.4-46.3); Red Blood Count 3.33 M/uL (4.2-5.4); White Blood Count 5.75 K/uL (4.8-10.8)
--- NOTE | 2019-01-16 13:00 | Hospitalist Progress Note ---
Date of Service January 16, 2019 Assessment & Plan (1) Right sided abdominal pain: * Acute on chronic, has been going on x 1 year, worse/more frequent in the last 1 week * Uncertain etiology -- ? nonspecific colitis vs infectious vs GIB vs cholecystitis (although LFTs wnl) v * Ultrasound GB with sludge, 6mm CBD, no stone visualized. * MRCP without evidence of ductal dilatation or calculi * GI Consultation -- appreciate rec -- NPO for colonoscopy in AM --?need for upper endoscopy given persistent "dark" emesis?? * Prep per GI * Morphine for pain-increased dose today * D/C toradol -- given patient with CKD III, would avoid nsaids * K-PAD * Recurrent pain in RLQ this evening with abd 2 view without free air/perforation. possible wall thickening, obstructive process NOT favored. enteritis/ileus could be present * Repeat imaging as above -- re-evaluation without evidence of rebound tenderness or rigidity * received IVFs but now on hold for possible developing fluid overload with mild hypoxia * Consult General Surgery also given severe right sided abdominal pain worsening (2) Colitis: Seen on CT in descending colon Unclear if infectious or not Is NOT on antibiotics currently Afebrile, no leukocytosis Has mild LLQ pain No evidence of abscess or microperforation on CT -follow closely -having colonoscopy tomorrow Appreciate GI consultation (3) Chronic kidney disease, stage III (moderate): * Baseline creat 1.2, GFR 35 * Creat 1.5 on admission -- likely secondary to dehydration * Creat down to baseline today, 1.2 after IVF hydration * Avoid all nephrotoxic agents, renally dose medications when appropriate * D/C Toradol * Continue to monitor -- will hold morning chlorthalidone/potassium as patient received both hctz and chlorthalidone today -- nursing already given prior to d/c order * Patient will need repeat counseling to avoid Aleve/ibuprofen prior to discharge as she is currently taking 4-5x/wk * follows with Nephro as outpt (4) COPD, moderate: * Continue home albuterol * should not be on both Brovana and inhaler with budesonide--> dc Brovana * Takes PRN steroids on almost monthly basis for asthmatic COPD (5) Depression with anxiety: * continue home sertraline 25mg (6) Dyslipidemia: * Holding crestor while NPO (7) Esophageal reflux disease: * continue protonix 40mg BID (8) Hypertension: * Stable - BP currently 132/75 * Continue home amlodipine, losartan * *Patient received hctz and chlorthalidone--> hctz d/c'd as an outpatient 6 months ago but was on home med rec, chlorthalidone on hold for AM while being hydrated * Continue to monitor (9) Headache, migraine: * PRN triptan (10) Hypothyroidism: * continue home levothyroxine * TSH 0.485 5 months ago (11) Uncontrolled type 2 diabetes mellitus with kidney complication, with long- term current use of insulin: * Holding home insulin given limited PO * SSI PRN * A1c pending * Lantus 10 units tonight as BSGs with some hyperglycemia (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 I verified all richard points and agree with JACEY Martino with the following exceptions and/or additions: Pt seen while having 10/10 RLQ stabbing pains and continued 2/10 LLQ "bag of nails" pain. Denies radiation of pain, feels like being cut with a knife, never goes the whole way away. Reports episodes will come on for 15 min and then go away several times throughout the day. No current nausea or vomiting. Had a brown soft BM this AM Vitals reviewed Appears in mild distress with pain AAOx3 RRR no mgr CTAB no wcr Abd +BS soft, +TTP in RLQ and LLQ with some voluntary guarding that goes away with distraction, no rebound tenderness, no masses or hernias Ext no calf tenderness, neg Georgina's sign bilat, no edema, 2+ DP pulses bilat 63 yo female here with acute on chronic RLQ abd pain and LLQ pain with colitis o n CT. RLQ seems like could be from GI source but could be neuropathic in nature LLQ pain likely from colitis -appreciate GI consultation with plan for colonoscopy tomorrow -pain control, bowel prep -considering adding on antibiotics for colitis but will discuss with GI in AM after colonoscopy Subjective Patient with continued right lower abdominal pain with radiation across lower abdomen. She rates this pain as "11/10" when it is at it's worse and 2/10 currently with pain medications. The patient states she feels well enough to go home with pain medications, but is agreeable to be seen by GI prior to discharge. She states she has had this abdominal pain on and off for a year. Associated vomiting, "dark in color" on average 3x/week. She states she does take Aleve 3x/week, 1 pill per day when she does. Denies smoking or etoh use. Hx IBS and she states she had colonoscopy 2015 and she does not have any history of crohns/colitis. She had done the smart pill in the last year and was told she has slow transit time. Denies any previous cardiac work-up. Recent right knee pain and generalized fatigue. Denies any recent hiking or travel. Hx of reflux but states she has been on protonix for a while. She does admit to intermittent shortness of breath but states this is baseline for her underlying COPD. Re-evaluation this afternoon for worsening abdominal pain. Described as "sharp, stabbing" sensation RUQ with nausea. Denies emesis. Scheduled for colonoscopy tomorrow morning. Review of Systems Constitutional: + fever, + chills, + fatigue and + weakness; no increased appetite Ear, Nose, Mouth, Throat: no sore throat and no dysphagia Respiratory: no cough and no pain on inspiration Cardiovascular: no chest pain, no palpitations, no syncope and no edema Gastrointestinal: + abdominal pain, + nausea and + vomiting ("dark" 3x/wk); no blood in stools IBS- alternating diarrhea/constipation Genitourinary: no dysuria and no urinary frequency IBS -- alternating diarrhea and constipation type Musculoskeletal: right knee and back pain Physical Exam Constitutional: WD/WN, vitals as above + obese; no acute distress Eyes: PERRL, conjunctivae normal, anicteric sclerae Neck: trachea midline, no thyromegaly Respiratory: normal respiratory effort and able to speak in complete sentences; no respiratory distress Auscultation: + diminished lung sounds (di ffusely. prolonged expiratory phase); no crackles, no rhonchi and no wheezes Cardiovascular: Rate/Rhythm: regular rate and regular rhythm Heart Sounds: normal S1, normal S2 and + murmur (systolic murmur best appreciated RUSB) Vessels: no JVD Extremities: no edema Gastrointestinal (Abdomen): Inspection/Auscultation: abdomen normal to inspection; no abdominal edema Percussion/Palpation: + abdomen tender (RUQ, RLQ, LLQ) and + tympanic to percussion; no hepatosplenomegaly no rebound tenderness Musculoskeletal: no cyanosis or clubbing, extremities motor strength 5/5 Skin: no rashes, warm and dry 2-3 cm linear excoriation epigastric region Neurologic: PERRL, EOMI, accommodation nl, no face palsy, no dysarthria Psychiatric: Orientation: alert and oriented x 3 Lymphatic: no cervical or axillary lymphadenopathy Results & Data Vital Signs (Past 12 Hours) Vital Signs Temp Pulse Pulse Resp BP Pulse Ox 01/16/19 07:41 36.4 C L 68 18 132/75 94 01/16/19 07:02 68 16 94 Laboratory Results 01/16/19 01/16/19 01/16/19 Range/Units 17:24 13:15 12:04 WBC (4.8-10.8) K/uL RBC (4.2-5.4) M/uL Hgb (12.0-16.0) g/dL Hct (37-47) % MCV (80-100) fL MCH (25-34) pg MCHC (32-36) g/dL RDW Std Deviation (36.4-46.3) fL RDW Coeff of Mckay (11.5-14.5) % Plt Count (130-400) K/uL MPV (7.4-10.4) fL Sodium (136-145) mmol/L Potassium (3.5-5.1) mmol/L Chloride (98-107) mmol/L Carbon Dioxide (21-32) mmol/L Anion Gap (3-11) BUN (7-18) mg/dl Creatinine (0.6-1.2) mg/dl Est Cr Clr Drug Dosing ml/min Est GFR ( Amer) Est GFR (Non-Af Amer) BUN/Creatinine Ratio (10-20) Glucose (70-99) mg/dl POC Glucose 145 H (70-99) Estimat Average Glucose Hemoglobin A1c Calcium (8.5-10.1) mg/dl Total Bilirubin (0.2-1) mg/dl Direct Bilirubin (0-0.2) mg/dl AST (15-37) U/L ALT (12-78) U/L Alkaline Phosphatase (45-117) U/L Total Protein (6.4-8.2) gm/dl Albumin (3.4-5.0) gm/dl Lyme Disease IgG Ab (Negative) Lyme Disease IgM Ab (Negative) EBV Capsid Ag IgG Ab Pending EBV Capsid Ag IgM Ab Pending EBV Nuclear Antigen Ab Pending Influenza Type A Ag Neg for Influ A (Neg) Influenza Type B Ag Neg for Influ B (Neg) 01/16/19 01/16/19 01/16/19 Range/Units 12:04 11:49 09:43 WBC 5.75 (4.8-10.8) K/uL RBC 3.33 L (4.2-5.4) M/uL Hgb 10.3 L (12.0-16.0) g/dL Hct 31.0 L (37-47) % MCV 93.1 (80-100) fL MCH 30.9 (25-34) pg MCHC 33.2 (32-36) g/dL RDW Std Deviation 42.2 (36.4-46.3) fL RDW Coeff of Mckay 12.3 (11.5-14.5) % Plt Count 226 (130-400) K/uL MPV 9.0 (7.4-10.4) fL Sodium (136-145) mmol/L Potassium (3.5-5.1) mmol/L Chloride (98-107) mmol/L Carbon Dioxide (21-32) mmol/L Anion Gap (3-11) BUN (7-18) mg/dl Creatinine (0.6-1.2) mg/dl Est Cr Clr Drug Dosing ml/min Est GFR ( Amer) Est GFR (Non-Af Amer) BUN/Creatinine Ratio (10-20) Glucose (70-99) mg/dl POC Glucose 167 H (70-99) Estimat Average Glucose Hemoglobin A1c Calcium (8.5-10.1) mg/dl Total Bilirubin (0.2-1) mg/dl Direct Bilirubin (0-0.2) mg/dl AST (15-37) U/L ALT (12-78) U/L Alkaline Phosphatase (45-117) U/L Total Protein (6.4-8.2) gm/dl Albumin (3.4-5.0) gm/dl Lyme Disease IgG Ab Negative (Negative) Lyme Disease IgM Ab Negative (Negative) EBV Capsid Ag IgG Ab EBV Capsid Ag IgM Ab EBV Nuclear Antigen Ab Influenza Type A Ag (Neg) Influenza Type B Ag (Neg) 01/16/19 01/16/19 01/16/19 Range/Units 07:46 05:32 05:32 WBC (4.8-10.8) K/uL RBC (4.2-5.4) M/uL Hgb (12.0-16.0) g/dL Hct (37-47) % MCV (80-100) fL MCH (25-34) pg MCHC (32-36) g/dL RDW Std Deviation (36.4-46.3) fL RDW Coeff of Mckay (11.5-14.5) % Plt Count (130-400) K/uL MPV (7.4-10.4) fL Sodium 137 (136-145) mmol/L Potassium 3.8 (3.5-5.1) mmol/L Chloride 104 (98-107) mmol/L Carbon Dioxide 27 (21-32) mmol/L Anion Gap 6.0 (3-11) BUN 16 (7-18) mg/dl Creatinine 1.20 (0.6-1.2) mg/dl Est Cr Clr Drug Dosing 48.0 ml/min Est GFR ( Amer) 56.5 Est GFR (Non-Af Amer) 48.7 BUN/Creatinine Ratio 13.4 (10-20) Glucose 123 H (70-99) mg/dl POC Glucose 131 H (70-99) Estimat Average Glucose Pending Hemoglobin A1c Pending Calcium 8.1 L (8.5-10.1) mg/dl Total Bilirubin 0.3 (0.2-1) mg/dl Direct Bilirubin < 0.1 (0-0.2) mg/dl AST 15 (15-37) U/L ALT 20 (12-78) U/L Alkaline Phosphatase 44 L (45-117) U/L Total Protein 5.7 L (6.4-8.2) gm/dl Albumin 3.0 L (3.4-5.0) gm/dl Lyme Disease IgG Ab (Negative) Lyme Disease IgM Ab (Negative) EBV Capsid Ag IgG Ab EBV Capsid Ag IgM Ab EBV Nuclear Antigen Ab Influenza Type A Ag (Neg) Influenza Type B Ag (Neg) 01/15/19 Range/Units 21:49 WBC (4.8-10.8) K/uL RBC (4.2-5.4) M/uL Hgb (12.0-16.0) g/dL Hct (37-47) % MCV (80-100) fL MCH (25-34) pg MCHC (32-36) g/dL RDW Std Deviation (36.4-46.3) fL RDW Coeff of Mckay (11.5-14.5) % Plt Count (130-400) K/uL MPV (7.4-10.4) fL Sodium (136-145) mmol/L Potassium (3.5-5.1) mmol/L Chloride (98-107) mmol/L Carbon Dioxide (21-32) mmol/L Anion Gap (3-11) BUN (7-18) mg/dl Creatinine (0.6-1.2) mg/dl Est Cr Clr Drug Dosing ml/min Est GFR ( Amer) Est GFR (Non-Af Amer) BUN/Creatinine Ratio (10-20) Glucose (70-99) mg/dl POC Glucose 171 H (70-99) Estimat Average Glucose Hemoglobin A1c Calcium (8.5-10.1) mg/dl Total Bilirubin (0.2-1) mg/dl Direct Bilirubin (0-0.2) mg/dl AST (15-37) U/L ALT (12-78) U/L Alkaline Phosphatase (45-117) U/L Total Protein (6.4-8.2) gm/dl Albumin (3.4-5.0) gm/dl Lyme Disease IgG Ab (Negative) Lyme Disease IgM Ab (Negative) EBV Capsid Ag IgG Ab EBV Capsid Ag IgM Ab EBV Nuclear Antigen Ab Influenza Type A Ag (Neg) Influenza Type B Ag (Neg) Diagnostic Findings MRCP IMPRESSION: 1. No evidence of ductal dilatation 2. No calculi identified 3. Focal narrowing of the superior common bile duct/common hepatic duct, is likely secondary to a crossing vessel. ABD 2 View IMPRESSION: 1. Cardiomegaly. 2. Minimal bibasilar atelectasis or scarring. No other convincing evidence of acute cardiopulmonary disease. 3. Gaseous distended small bowel with possible wall thickening. An obstructive process is not favored. Enteritis and/or ileus could be present. No free air to suggest perforation. PG Care Time/CCT Total # of Minutes Spent Total Time Spent with Patient: Total time spent is greater than 50% in coordination of care (as documented) at patient's floor/unit and/or counseling patient:
[2019-01-16 13:16] LABS: Lyme Ab IgG w/WB Rflx Negative (Negative); Lyme Ab IgM w/WB Rflx Negative (Negative)
--- NOTE | 2019-01-16 14:39 | Gastrointestinal Consultation ---
Date of Consultation January 16, 2019 Assessment & Plan (1) Right sided abdominal pain: ddx includes severe IBS vs. Crohns ileocolitis vs. infectious ileitis. Warrants further workup in the form of endoscopic evaluation. Recs: clear liquids today, golytely split prep starting tonight colonoscopy with biopsies to further evaluate tomorrow 01/17/19 NPO post midnight except for prep Thank you for allowing me to participate in the care of this patient History of Present Illness Attending Physician: Toyin Cristobal MD 63 yo female with hx IBS-C here with RLQ abdominal pain. She describes the pains as sharp/stabbing, progressively getting worse over the last 2 months, worse with BMs, coughing, and certain foods, 10/10 at its worst. She has had these pains before but not of this intensity. Notes associated nausea/vomiting, denies diarrhea, blood per rectum, accidental weight loss. Notes her mother and sisters all have IBS, no family hx CRC. Last colonoscopy was in 2015, no significant findings. Currently on clear liquid diet and in significant pain. Labs reviewed, mild anemia noted, normal LFTs. Imaging reviewed, notable for left sided colitis, normal bile ducts without choledocholithiasis nor chol elithiasis. Allergies Allergy/AdvReac Type Severity Reaction Status Date / Time bupropion Allergy Severe muscle Verified 01/15/19 15:45 pains and cramps prochlorperazine Allergy Intermediate restless Verified 01/15/19 15:45 codeine Allergy Mild GI Verified 01/15/19 15:45 INTOLERANCE erythromycin base Allergy Mild DIZZINESS Verified 01/15/19 15:45 levothyroxine Allergy Unknown HIVES Verified 01/15/19 15:45 metformin Allergy Unknown "METRFORMIN Verified 01/15/19 15:45 ALLERGY"?? mold Allergy Unknown CHEST Verified 01/15/19 15:45 CONGESTION paroxetine Allergy Unknown BAD DREAMS Verified 01/15/19 15:45 house dust Allergy Verified 01/15/19 15:45 lisinopril Allergy Verified 01/15/19 15:45 milk AdvReac Unknown GI DISTRESS Verified 01/15/19 15:45 Home Medications Home Medications Medication Instructions Recorded Confirmed Type ipratropium-albuterol 0.5 mg-3 3 ml INHALATION TID PRN #4 ml 09/16/18 01/15/19 Rx mg(2.5 mg base)/3 mL nebulization soln sumatriptan 50 mg tablet 50 mg PO Q2H PRN #10 tab 09/16/18 01/15/19 Rx arformoterol 15 mcg/2 mL solution 2 ml INH Q12H 10/08/18 01/15/19 History for nebulization fluticasone furoate 100 1 puffs INH DAILY PRN 10/08/18 01/15/19 History mcg-vilanterol 25 mcg/dose inhalation powder insulin glargine (U- 100) 100 30 units SQ HS ml 10/08/18 01/15/19 History unit/mL subcutaneous solution ipratropium 20 mcg-albuterol 100 1 puffs INH QID PRN 10/08/18 01/15/19 History mcg/actuation mist for inhalation methylprednisolone 4 mg tablet 4 mg PO DAILY PRN 10/08/18 01/15/19 History rosuvastatin 5 mg tablet 5 mg PO .COMPLEX tab 10/08/18 01/15/19 History sodium chloride 0.65 % nasal spray 1 sprays INTNAS BID PRN 10/08/18 01/15/19 History aerosol Humalog U- 100 Insulin 100 unit/mL 84 units SQ .COMPLEX #3 vial NS 11/12/18 01/15/19 Rx subcutaneous solution trazodone 50 mg tablet 50 mg PO HS PRN #30 tab 12/06/18 01/15/19 Rx amlodipine 5 mg PO QAM 01/11/19 01/15/19 History aspirin 81 mg PO QAM 01/11/19 01/15/19 History cetirizine 10 mg PO QAM 01/11/19 01/15/19 History chlorthalidone 25 mg PO QAM 01/11/19 01/15/19 History clonidine HCl 0.1 mg PO BID PRN 01/11/19 01/15/19 History guaifenesin [Mucinex] 600 mg PO QAM 01/11/19 01/15/19 History hydrochlorothiazide 12.5 mg PO QAM 01/11/19 01/15/19 History levothyroxine [Unithroid] 88 mcg PO QAM 01/11/19 01/15/19 History losartan 100 mg PO QAM 01/11/19 01/15/19 History montelukast 10 mg PO QAM 01/11/19 01/15/19 History pantoprazole 40 mg PO HS 01/11/19 01/15/19 History potassium chloride 20 meq PO HS 01/11/19 01/15/19 History sertraline 25 mg PO QA 01/11/19 01/15/19 History dicyclomine 10 mg PO TID #15 cap 01/13/19 01/15/19 Rx ondansetron 4 mg PO Q6H PRN #20 tab 01/13/19 01/15/19 Rx Patient History Medical History COPD, moderate (Acute) Chronic bronchitis (Acute) Chronic kidney disease, stage III (moderate) (Acute) Depression with anxiety (Acute) Dyslipidemia (Acute) Esophageal reflux disease (Acute) Hypertension (Acute 06/19/12) Headache, migraine (Acute) Hypertension (Acute) Hypothyroidism (Acute) Internal hemorrhoids (Acute) Microalbuminuria (Acute) Non-proliferative diabetic retinopathy, severe, both eyes (Acute) Osteopenia (Acute) Statin intolerance (Acute) Uncontrolled type 2 diabetes mellitus with kidney complication, with long-term current use of insulin (Acute) Uncontrolled type 2 diabetes mellitus with retinopathy, with long-term current use of insulin (Acute) Vitamin D deficiency disease (Acute) History of in vitro fertilization (Resolved) History of cellulitis History of female infertility History of gastrointestinal hemorrhage History of herpes zoster History of leukocytosis Surgical History H/O dilation and curettage (Resolved) History of incision and drainage (Resolved) H/O sinus surgery History of in vitro fertilization Family History Mother Coronary arteriosclerosis Diabetes CHF (congestive heart failure) Sister Diabetes CHF (congestive heart failure) Cardiac arrest Father Macular degeneration Hypertension Stroke Grandmother (Maternal) Breast cancer Social History Preferred Language: Setswana Communication Ability: Effective 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 Beliefs That Will Affect Care: None marital status: Current Living Situation: Spouse Feels Safe at Home: Yes Smoking Status: Never smoker Hx Alcohol Use: No Hx Substance Use: No Seatbelt Use: always Review of Systems Constitutional: no fever, no chills and no weight loss Eyes: as per Subjective / HPI Ear, Nose, Mouth, Throat: as per Subjective / HPI Respiratory: no dyspnea and no dyspnea on exertion Cardiovascular: no chest pain and no palpitations Gastrointestinal: as per Subjective / HPI Musculoskeletal: no joint pain and no swelling Integumentary: no rash and no lesions Neurologic: no numbness and no paresthesia Psychiatric: no depression and no anxiety Endocrine: no fatigue Hematologic / Lymphatic: no easy bleeding and no easy bruising Physical Exam Constitutional: WD/WN, vitals as above Eyes: EOM intact bilaterally Neck: normal visual inspection Respiratory: normal respiratory effort, lungs clear to auscultation Cardiovascular: RRR, no murmur, no edema Gastrointestinal (Abdomen): Inspection/Auscultation: abdomen normal to inspection; abdomen not distended Percussion/Palpation: abdomen soft; abdomen nontender and no hepatosplenomegaly Musculoskeletal: Extremities: no cyanosis Gait: normal gait Skin: no rashes, warm and dry Neurologic: moves all extremities Psychiatric: A+Ox3, euthymic affect Results & Data Vital Signs (Past 12 Hours) Vital Signs Temp Pulse Pulse Resp BP Pulse Ox 01/16/19 07:41 36.4 C L 68 18 132/75 94 01/16/19 07:02 68 16 94 PG Care Time/CCT Total # of Minutes Spent Total Time Spent with Patient: Total time spent is greater than 50% in coordination of care (as documented) at patient's floor/unit and/or counseling patient:
[2019-01-16] MEDS: ONDANSETRON INJ 2 MG/ML 2 ML VIAL IV PRN (15:34)
[2019-01-16] MEDS ORDERED: MoRPHine SULFATE 2 MG/ML CARP IV STA (16:34)
[2019-01-16] MEDS ORDERED: MoRPHine SULFATE 2 MG/ML CARP IV PRN (16:35)
--- NOTE | 2019-01-16 17:50 | XRay Report ---
XR abdomen 2V w PA chest CLINICAL HISTORY: 63 years-old Female presenting with abdominal pain, rebound tenderness, rigidity. TECHNIQUE: PA view of the chest and supine and left lateral decubitus views of the abdomen were obtai gerald. COMPARISON: 01/15/2019. FINDINGS: Cardiac silhouette mildly enlarged. This is unchanged from prior. Few bandlike opacities at the lung bases. No other focal opacity. No large effusion or pneumothorax. Oral contrast is noted in the large bowel. Mild gaseous distention of small bowel up to 3 cm though t his may be affected by magnification. Mild small bowel wall thickening may be present. No gross pneum operitoneum. Allowing for bowel gas and stool, no calcifications to suggest nephrolithiasis. Osseous structures normal. IMPRESSION: 1. Cardiomegaly. 2. Minimal bibasilar atelectasis or scarring. No other convincing evidence of acute cardiopulmonary disease. 3. Gaseous distended small bowel with possible wall thickening. An obstructive process is not favore d. Enteritis and/or ileus could be present. No free air to suggest perforation. Electronically signed by: Dusty Eubanks M.D. 01/16/2019 5:49 PM
[2019-01-16] MEDS: LAVAGE SOLUTION 4000ML PO SCH (18:22)
[2019-01-16] MEDS: PANTOprazole 40 MG TAB PO SCH (20:47)
[2019-01-16] MEDS ORDERED: LANTUS PER UNIT CHARGE SQ SCH (21:00)
[2019-01-16] MEDS: BUDESONIDE/FORMOTEROL FUMARATE 80/4.5 60 PUFFS/INHALER INH SCH (21:51)
[2019-01-17] MEDS ORDERED: cloNIDine HCl 0.1 MG TAB PO PRN (01:58)
[2019-01-17] MEDS: LAVAGE SOLUTION 4000ML PO SCH (03:20)
[2019-01-17] MEDS: LEVOTHYROXINE SODIUM 88 MCG TABLET PO SCH (06:08)
[2019-01-17 06:17] LABS: Hematocrit (blood only) 34.2 % (37-47); Hemoglobin 11.2 g/dL (12.0-16.0); Mean Corpuscular Hemoglobin 30.8 pg (25-34); Mean Corpuscular Hgb Conc 32.7 g/dL (32-36); Mean Platelet Volume 9.4 fL (7.4-10.4); Platelet Count 287 K/uL (130-400); RDW Coefficient of Variation 12.3 % (11.5-14.5); RDW Standard Deviation 41.7 fL (36.4-46.3); Red Blood Count 3.64 M/uL (4.2-5.4); White Blood Count 7.08 K/uL (4.8-10.8)
[2019-01-17 06:51] LABS: Albumin Level 3.6 gm/dl (3.4-5.0); Calcium 9.5 mg/dl (8.5-10.1); Est GFR (African American) 67.9; Est GFR (Non-African American) 58.6; Magnesium 2.1 mg/dl (1.8-2.4); Potassium 3.7 mmol/L (3.5-5.1)
[2019-01-17 06:52] LABS: Albumin Globulin Ratio 1.1 (0.9-2); Bilirubin,Total 0.3 mg/dl (0.2-1); Globulin 3.4 gm/dl (2.5-4.0)
[2019-01-17 07:34] LABS: Estimated Average Glucose 192 mg/dl; Hemoglobin A1C 8.3 % (4.5-5.6)
[2019-01-17] MEDS: ONDANSETRON INJ 2 MG/ML 2 ML VIAL IV PRN (07:34)
[2019-01-17] MEDS: INSULIN ASPART 100 UNITS/ML 3 ML PEN SC SCH ×2 (08:30→12:06)
--- NOTE | 2019-01-17 10:01 | Surgery Consultation ---
Date of Consultation January 17, 2019 Assessment & Plan (1) Right sided abdominal pain: Seen with Dr. Arias. Await colonoscopy. No apparent surgical pathology, doubt sludge is her issue. History of Present Illness Attending Physician: Toyin Cristobal MD History of Present Illness 63 y/o female with abdominal pain for 1 week, now mostly RLQ. Began when she c aught her husbands flu. No food intolerance, sometimes has vomiting if she eats a late dinner. Has had pain off and on for the past year. Scheduled for colonoscopy today. Allergies Allergy/AdvReac Type Severity Reaction Status Date / Time bupropion Allergy Severe muscle Verified 01/15/19 15:45 pains and cramps prochlorperazine Allergy Intermediate restless Verified 01/15/19 15:45 codeine Allergy Mild GI Verified 01/15/19 15:45 INTOLERANCE erythromycin base Allergy Mild DIZZINESS Verified 01/15/19 15:45 levothyroxine Allergy Unknown HIVES Verified 01/15/19 15:45 metformin Allergy Unknown "METRFORMIN Verified 01/15/19 15:45 ALLERGY"?? mold Allergy Unknown CHEST Verified 01/15/19 15:45 CONGESTION paroxetine Allergy Unknown BAD DREAMS Verified 01/15/19 15:45 house dust Allergy Verified 01/15/19 15:45 lisinopril Allergy Verified 01/15/19 15:45 milk AdvReac Unknown GI DISTRESS Verified 01/15/19 15:45 Home Medications Home Medications Medication Instructions Recorded Confirmed Type ipratropium-albuterol 0.5 mg-3 3 ml INHALATION TID PRN #4 ml 09/16/18 01/15/19 Rx mg(2.5 mg base)/3 mL nebulization soln sumatriptan 50 mg tablet 50 mg PO Q2H PRN #10 tab 09/16/18 01/15/19 Rx arformoterol 15 mcg/2 mL solution 2 ml INH Q12H 10/08/18 01/15/19 History for nebulization fluticasone furoate 100 1 puffs INH DAILY PRN 10/08/18 01/15/19 History mcg-vilanterol 25 mcg/dose inhalation powder insulin glargine (U- 100) 100 30 units SQ HS ml 10/08/18 01/15/19 History unit/mL subcutaneous solution ipratropium 20 mcg-albuterol 100 1 puffs INH QID PRN 10/08/18 01/15/19 History mcg/actuation mist for inhalation methylprednisolone 4 mg tablet 4 mg PO DAILY PRN 10/08/18 01/15/19 History rosuvastatin 5 mg tablet 5 mg PO .COMPLEX tab 10/08/18 01/15/19 History sodium chloride 0.65 % nasal spray 1 sprays INTNAS BID PRN 10/08/18 01/15/19 History aerosol Humalog U- 100 Insulin 100 unit/mL 84 units SQ .COMPLEX #3 vial NS 11/12/18 01/15/19 Rx subcutaneous solution trazodone 50 mg tablet 50 mg PO HS PRN #30 tab 12/06/18 01/15/19 Rx amlodipine 5 mg PO QAM 01/11/19 01/15/19 History aspirin 81 mg PO QAM 01/11/19 01/15/19 History cetirizine 10 mg PO QAM 01/11/19 01/15/19 History chlorthalidone 25 mg PO QAM 01/11/19 01/15/19 History clonidine HCl 0.1 mg PO BID PRN 01/11/19 01/15/19 History guaifenesin [Mucinex] 600 mg PO QAM 01/11/19 01/15/19 History hydrochlorothiazide 12.5 mg PO QAM 01/11/19 01/15/19 History levothyroxine [Unithroid] 88 mcg PO QAM 01/11/19 01/15/19 History losartan 100 mg PO QAM 01/11/19 01/15/19 History montelukast 10 mg PO QAM 01/11/19 01/15/19 History pantoprazole 40 mg PO HS 01/11/19 01/15/19 History potassium chloride 20 meq PO HS 01/11/19 01/15/19 History sertraline 25 mg PO QAM 01/11/19 01/15/19 History dicyclomine 10 mg PO TID #15 cap 01/13/19 01/15/19 Rx ondansetron 4 mg PO Q6H PRN #20 tab 01/13/19 01/15/19 Rx Patient History Medical History COPD, moderate (Acute) Chronic bronchitis (Acute) Chronic kidney disease, stage III (moderate) (Acute) Depression with anxiety (Acute) Dyslipidemia (Acute) Esophageal reflux disease (Acute) Hypertension (Acute 06/19/12) Headache, migraine (Acute) Hypertension (Acute) Hypothyroidism (Acute) Internal hemorrhoids (Acute) Microalbuminuria (Acute) Non-proliferative diabetic retinopathy, severe, both eyes (Acute) Osteopenia (Acute) Statin intolerance (Acute) Uncontrolled type 2 diabetes mellitus with kidney complication, with long-term current use of insulin (Acute) Uncontrolled type 2 diabetes mellitus with retinopathy, with long-term current use of insulin (Acute) Vitamin D deficiency disease (Acute) History of in vitro fertilization (Resolved) History of cellulitis History of female infertility History of gastrointestinal hemorrhage History of herpes zoster History of leukocytosis Surgical History H/O dilation and curettage (Resolved) History of incision and drainage (Resolved) H/O sinus surgery History of in vitro fertilization Family History Mother Coronary arteriosclerosis Diabetes CHF (congestive heart failure) Sister Diabetes CHF (congestive heart failure) Cardiac arrest Father Macular degeneration Hypertension Stroke Grandmother (Maternal) Breast cancer Social History Preferred Language: Yakut Communication Ability: Effective Nursing Home Social Worker Required: No Beliefs That Will Affect Care: None marital status: Current Living Situation: Spouse Other Information That Helps Us Care for You: No Feels Safe at Home: Yes Safety Concerns: Feels Safe At This Time Smoking Status: Never smoker Hx Alcohol Use: No Hx Substance Use: No Seatbelt Use: always Review of Systems Constitutional: no fever and no anorexia Gastrointestinal: + abdominal pain, + nausea (not at present), + vomiting and + diarrhea/loose stools Physical Exam Constitutional: WD/WN, vitals as above Gastrointestinal (Abdomen): Inspection/Auscultation: abdomen not distended Percussion/Palpation: + abdomen tender (RLQ, right flank) and abdomen soft Skin: no rashes, no lesions and no jaundice Results & Data Vital Signs (Past 12 Hours) Vital Signs Temp Pulse Resp BP Pulse Ox 01/17/19 07:00 36.7 C 81 20 169/79 H 93 01/17/19 05:19 36.6 C 81 18 176/89 H 92 01/16/19 22:53 36.7 C 76 19 155/82 H 91 PG Care Time/CCT Total # of Minutes Spent Total Time Spent with Patient: Total time spent is greater than 50% in coordination of care (as documented) at patient's floor/unit and/or counseling patient:
--- NOTE | 2019-01-17 10:02 | History & Physical Bridge Note ---
Date of Service January 17, 2019 History & Physical Bridge Note I have examined the patient, reviewed the History & Physical and in the interval since the performance of the History & Physical I have noted the following changes of clinical significance: Patient consumed 2/3 of GoLytely bowel prep solution. Reports stool is running clear. Continues with mild RLQ pain rated 3/10 at present. No n/v. No f/c. Exam: A&Ox3. RRR, no MRG. Lungs CTA bilaterally. Abdomen soft, normal bowel sounds. Mild tenderness RLQ. Nondistended. No pedal edema. A/P: RLQ pain. NPO now. Proceed with colonoscopy by Dr. Green today. Additional recommendations pending results of testing. Supervising Physician Co-Signing Physician Notes proceed with colonoscopy. risks/benefits and procedure discussed with patient, who agrees to proceed
[2019-01-17] MEDS: BUDESONIDE/FORMOTEROL FUMARATE 80/4.5 60 PUFFS/INHALER INH SCH (11:30)
[2019-01-17] MEDS: DICYCLOMINE HCL 10 MG CAP PO SCH ×2 (11:31→14:49)
--- NOTE | 2019-01-17 12:30 | Anesthesiology Consultation ---
Date of Service January 17, 2019 Assessment & Plan Chart Review Chart Review: Acceptable Risk for Surgery and Patient NOT seen in Pre Admission Testing Consults Requested none History Surgery Operation Date: 01/17/19 17:30 Proposed Procedures p Colonoscopy Dr. Peter Green MD Height/Weight Height: 5 ft 2 in Weight: 79.4 kg Allergies Allergy/AdvReac Type Severity Reaction Status Date / Time bupropion Allergy Severe muscle Verified 01/17/19 12:13 pains and cramps prochlorperazine Allergy Intermediate restless Verified 01/17/19 12:13 codeine Allergy Mild GI Verified 01/17/19 12:13 INTOLERANCE erythromycin base Allergy Mild DIZZINESS Verified 01/17/19 12:13 levothyroxine Allergy Unknown HIVES Verified 01/17/19 12:13 metformin Allergy Unknown "METRFORMIN Verified 01/17/19 12:13 ALLERGY"?? mold Allergy Unknown CHEST Verified 01/17/19 12:13 CONGESTION paroxetine Allergy Unknown BAD DREAMS Verified 01/17/19 12:13 house dust Allergy Verified 01/17/19 12:13 lisinopril Allergy Verified 01/17/19 12:13 milk AdvReac Unknown GI DISTRESS Verified 01/17/19 12:13 Medications Home Medications Medication Instructions Recorded Confirmed Last Taken ipratropium-albuterol 0.5 mg-3 3 ml INHALATION TID PRN #4 ml 09/16/18 01/17/19 01/15/19 mg(2.5 mg base)/3 mL nebulization soln sumatriptan 50 mg tablet 50 mg PO Q2H PRN #10 tab 09/16/18 01/17/19 Unknown arformoterol 15 mcg/2 mL solution 2 ml INH Q12H 10/08/18 01/17/19 01/15/19 for nebulization fluticasone furoate 100 1 puffs INH DAILY PRN 10/08/18 01/17/19 Unknown mcg-vilanterol 25 mcg/dose inhalation powder insulin glargine (U- 100) 100 30 units SQ HS ml 10/08/18 01/17/19 01/14/19 unit/mL subcutaneous solution 25 units ipratropium 20 mcg-albuterol 100 1 puffs INH QID PRN 10/08/18 01/17/19 01/11/19 mcg/actuation mist for inhalation methylprednisolone 4 mg tablet 4 mg PO DAILY PRN 10/08/18 01/17/19 Unknown rosuvastatin 5 mg tablet 5 mg PO .COMPLEX tab 10/08/18 01/17/19 01/15/19 sodium chloride 0.65 % nasal spray 1 sprays INTNAS BID PRN 10/08/18 01/17/19 Unknown aerosol Humalog U- 100 Insulin 100 unit/mL 84 units SQ .COMPLEX #3 vial NS 11/12/18 01/17/19 01/15/19 subcutaneous solution 6 units trazodone 50 mg tablet 50 mg PO HS PRN #30 tab 12/06/18 01/17/19 01/14/19 amlodipine 5 mg PO QAM 01/11/19 01/17/19 01/15/19 aspirin 81 mg PO QAM 01/11/19 01/17/19 01/15/19 cetirizine 10 mg PO QAM 01/11/19 01/17/19 01/15/19 chlorthalidone 25 mg PO QAM 01/11/19 01/17/19 01/15/19 clonidine HCl 0.1 mg PO BID PRN 01/11/19 01/17/19 01/10/19 guaifenesin [Mucinex] 600 mg PO QAM 01/11/19 01/17/19 01/15/19 hydrochlorothiazide 12.5 mg PO QAM 01/11/19 01/17/19 01/15/19 levothyroxine [Unithroid] 88 mcg PO QAM 01/11/19 01/17/19 01/14/19 losartan 100 mg PO QAM 01/11/19 01/17/19 01/15/19 montelukast 10 mg PO QAM 01/11/19 01/17/19 01/15/19 pantoprazole 40 mg PO HS 01/11/19 01/17/19 01/15/19 potassium chloride 20 meq PO HS 01/11/19 01/17/19 01/15/19 sertraline 25 mg PO QAM 01/11/19 01/17/19 01/15/19 dicyclomine 10 mg PO TID #15 cap 01/13/19 01/17/19 01/15/19 ondansetron 4 mg PO Q6H PRN #20 tab 01/13/19 01/17/19 01/15/19 Active Medications Generic Name Dose Route Start Last Admin Trade Name Freq PRN Reason Stop Dose Admin Amlodipine Besylate 5 mg 01/16/19 09:00 01/16/19 09:05 Norvasc PO 02/15/19 08:59 5 mg QAM NATIVIDAD Administration Budesonide/Formoterol Fumarate 2 puffs 01/16/19 21:00 01/17/19 11:30 Symbicort 80mcg/4.5mcg INH 02/15/19 20:59 2 puffs BID NATIVIDAD Administration Cetirizine HCl 10 mg 01/16/19 09:00 01/16/19 09:06 Zyrtec PO 02/15/19 08:59 10 mg QAM NATIVIDAD Administration Chlorthalidone 25 mg 01/16/19 09:00 01/16/19 09:04 [place] PO 02/15/19 08:59 25 mg QAM NATIVIDAD Administration Dicyclomine HCl 10 mg 01/15/19 21:00 01/17/19 11:31 Bentyl PO 02/14/19 20:59 Not Given TID NATIVIDAD Guaifenesin 600 mg 01/16/19 09:00 01/16/19 09:05 Mucinex PO 02/15/19 08:59 600 mg QAM NATIVIDAD Administration Potassium Chloride/Sodium Chloride 20 meq in 1,000 mls @ 100 mls/hr 01/15/19 21:00 01/16/19 20:44 Normal Saline W/20 Meq Kcl IV 02/14/19 20:59 Not Given .Q10H NATIVIDAD Insulin Aspart 0 units 01/15/19 21:00 01/17/19 12:06 Novolog Flexpen SC 02/14/19 20:59 Not Given ACHS NATIVIDAD Ioversol 93 ml 01/15/19 17:02 01/15/19 17:02 Optiray 320 100ml IV 01/19/19 17:01 93 ml ONCE PRN Administration Interaction Checking Levothyroxine Sodium 88 mcg 01/16/19 06:30 01/17/19 06:08 Synthroid PO 02/15/19 06:29 Not Given DAILYBB NATIVIDAD Losartan Potassium 100 mg 01/16/19 09:00 01/16/19 09:02 Cozaar PO 02/15/19 08:59 100 mg QAM NATIVIDAD Administration Miscellaneous 1 ea 01/15/19 21:00 01/17/19 10:04 Order Awaiting Action N/A 02/14/19 20:59 Not Given QS NATIVIDAD Montelukast Sodium 10 mg 01/16/19 09:00 01/16/19 09:05 Singulair PO 02/15/19 08:59 10 mg QAM NATIVIDAD Administration Morphine Sulfate 2 mg 01/16/19 16:35 01/17/19 07:35 Morphine Sulfate IV 01/30/19 16:34 2 mg Q6HWA PRN Administration Pain Ondansetron HCl 4 mg 01/15/19 20:05 01/17/19 07:34 Zofran IV 02/14/19 20:04 4 mg Q6H PRN Administration Nausea Pantoprazole Sodium 40 mg 01/15/19 21:00 01/16/19 20:47 Protonix PO 02/14/19 20:59 40 mg HS NATIVIDAD Administration Sertraline HCl 25 mg 01/16/19 09:00 01/16/19 09:05 Zoloft PO 02/15/19 08:59 25 mg QAM NATIVIDAD Administration Trazodone HCl 50 mg 01/15/19 20:05 01/15/19 21:52 Desyrel PO 02/14/19 20:04 50 mg HS PRN Administration insomnia NPO Date Last Intake of Fluids: 01/17/19 Time Last Intake of Fluids: 01:00 Last Intake of Fluids Comment: taking golytle prep Date Last Intake of Solids: 01/20/19 Time Last Intake of Solids: 18:00 Past Medical History Medical History COPD, moderate (Acute) Chronic bronchitis (Acute) Chronic kidney disease, stage III (moderate) (Acute) Depression with anxiety (Acute) Dyslipidemia (Acute) Esophageal reflux disease (Acute) Hypertension (Acute 06/19/12) Headache, migraine (Acute) Hypertension (Acute) Hypothyroidism (Acute) Internal hemorrhoids (Acute) Microalbuminuria (Acute) Non-proliferative diabetic retinopathy, severe, both eyes (Acute) Osteopenia (Acute) Statin intolerance (Acute) Uncontrolled type 2 diabetes mellitus with kidney complication, with long-term current use of insulin (Acute) Uncontrolled type 2 diabetes mellitus with retinopathy, with long-term current use of insulin (Acute) Vitamin D deficiency disease (Acute) History of in vitro fertilization (Resolved) History of cellulitis History of female infertility History of gastrointestinal hemorrhage History of herpes zoster History of leukocytosis Past Family History Family History Mother Coronary arteriosclerosis Diabetes CHF (congestive heart failure) Sister Diabetes CHF (congestive heart failure) Cardiac arrest Father Macular degeneration Hypertension Stroke Grandmother (Maternal) Breast cancer Past Surgical History Surgical History H/O dilation and curettage (Resolved) History of incision and drainage (Resolved) H/O sinus surgery History of in vitro fertilization Social History Smoking Status: Never smoker Hx Alcohol Use: No Hx Substance Use: No Physical Exam Vital Signs Last Vital Signs Temp 36.7 C 01/17/19 12:17 Pulse 73 01/17/19 12:17 Resp 18 01/17/19 12:17 BP 171/86 H 01/17/19 12:17 Pulse Ox 95 01/17/19 12:17 Testing Laboratory Results 01/17/19 05:49 01/17/19 05:49 PT 10.7 Seconds (9.0-12.0) 01/15/19 14:50 INR 1.0 (0.9-1.1) 01/15/19 14:50 APTT 23.4 Seconds (21.0-31.0) 01/15/19 14:50 Hemoglobin A1c 8.3 % (4.5-5.6) H 01/16/19 05:32 Urine Color Yellow 01/15/19 15:30 Urine Appearance Clear (Clear) 01/15/19 15:30 Urine pH 5.5 (4.5-7.5) 01/15/19 15:30 Ur Specific [place] 1.020 (1.000-1.030) 01/15/19 15:30 Urine Protein 1+ (Negative) H 01/15/19 15:30 Urine Glucose (UA) Negative (Negative) 01/15/19 15:30 Urine Ketones Negative (Negative) 01/15/19 15:30 Urine Nitrite Negative (Negative) 01/15/19 15:30 Ur Leukocyte Esterase Trace (Negative) H 01/15/19 15:30 Urine WBC (Auto) Cancelled 01/15/19 15:30 Urine RBC (Auto) Cancelled 01/15/19 15:30 U Hyaline Cast (Auto) Cancelled 01/15/19 15:30 U Epithel Cells (Auto) Cancelled 01/15/19 15:30 Urine Bacteria (Auto) Cancelled 01/15/19 15:30 01/17/19 01/17/19 11:46 07:55 POC Glucose 117 H 134 H
[2019-01-17] MEDS ORDERED: MIDAZOLAM HCL 1 MG/ML 2ML VIAL ONE (12:40)
[2019-01-17] MEDS ORDERED: LIDOCAINE HCL 2% 2 ML VIAL/AMP(20MG/ML) INFIL ONE (12:41)
[2019-01-17] MEDS ORDERED: PROPOFOL IV EMULSION 10 MG/ML 20 ML VIAL IV ONE ×2 (12:42→13:19)
[2019-01-17] MEDS ORDERED: ONDANSETRON INJ 2 MG/ML 2 ML VIAL ONE (12:42)
--- NOTE | 2019-01-17 13:23 | GI REPORT ---
Patient Name: Fany Galo Procedure Date: 01/17/2019 12:47 PM Date of : 1955 Admit Type: Inpatient Age: 63 Gender: Female Attending MD: Edgar Green MD Procedure: Colonoscopy Providers: Edgar Green MD Referring MD: Toyin Cristobal Md Indications: Abdominal pain in the right lower quadrant Medicines: Monitored Anesthesia Care Complications: No immediate complications. Estimated blood loss: None. Estimated Blood Loss: Estimated blood loss: none. Procedure: Pre-Anesthesia Assessment: - ASA Grade Assessment: III - A patient with severe systemic disease. - Prior Anticoagulants: The patient has taken no previous anticoagulant or antiplatelet agents. - ASA Grade Assessment: After I obtained informed consent, the scope was passed under direct vision. Throughout the procedure, the patient's blood pressure, pulse, and oxygen saturations were monitored continuously. The scope was introduced through the anus and advanced to the cecum, identified by appendiceal orifice and ileocecal valve. The scope was introduced through the and advanced to. The colonoscopy was performed without difficulty. The patient tolerated the procedure well. The quality of the bowel preparation was fair. Findings: The perianal and digital rectal examinations were normal. An area of edematous, moderately congested mucosa was found in the sigmoid colon. This was biopsied with a cold forceps for histology. Estimated blood loss: none. Biopsies were taken from the right and left colon for further evaluation. moderate diverticulosis was noted in the left colon, also mild disease in the right colon The exam was otherwise normal throughout the examined colon. Impression: - Preparation of the colon was fair. - Congested mucosa in the sigmoid colon. Biopsied. Recommendation: - Return patient to [facility] for [facility] care. - Resume previous diet today. - Await pathology results. Edgar Green MD 01/17/2019 1:23:26 PM This report has been signed electronically. Note Initiated On: 01/17/2019 12:47 PM Number of Addenda: 0 I attest to the content of the Intraoperative Record and orders documented therein, exceptions below {[id number]}
--- NOTE | 2019-01-17 13:25 | Communication Note ---
Date of Service: January 17, 2019 GI brief note: colonoscopy: significant edematous mucosa/congested mucosa found in the sigmoid colon consistent with possible colitis. biopsies taken from right and left colon for further evaluation. No evidence of tumors, masses, ulcers. Recs: supportive care f/u biopsy results diet as tolerated rest as per primary team
[2019-01-17] MEDS: guaiFENesin 600 MG TABCR PO SCH (14:46)
[2019-01-17] MEDS: LOSARTAN POTASSIUM 50 MG TAB PO SCH (14:46)
[2019-01-17] MEDS: MONTELUKAST SODIUM 10 MG TABLET PO SCH (14:46)
[2019-01-17] MEDS: AMLODIPINE BESYLATE 5 MG TAB PO SCH (14:46)
[2019-01-17] MEDS: SERTRALINE HCL 50 MG TABLET PO SCH (14:47)
[2019-01-17] MEDS: CETIRIZINE HCL 10 MG TABLET PO SCH (14:47)
[2019-01-17 15:28] VITALS: TEMP 98.2; O2SAT 94
--- NOTE | 2019-01-17 16:16 | Anesthesiology Progress Note ---
Date of Service January 17, 2019 Anesthesia Post Procedure Vital Signs Vital Signs: Temp Pulse Resp BP BP Pulse Ox 01/17/19 15:00 36.8 C 78 20 153/79 H 94 01/17/19 14:11 80 16 140/70 97 01/17/19 13:38 83 16 147/87 H 97 01/17/19 13:23 83 16 129/60 97 01/17/19 12:17 36.7 C 73 18 171/86 H 95 01/17/19 11:20 36.7 C 50 L 18 139/71 94 01/17/19 07:00 36.7 C 81 20 169/79 H 93 01/17/19 05:19 36.6 C 81 18 176/89 H 92 01/16/19 22:53 36.7 C 76 19 155/82 H 91 01/16/19 20:02 72 16 96 01/16/19 19:59 36.9 C 68 21 145/77 H 95 Pain Intensity Right Abdomen: Pain Intensity: 3 Transfer of Care Handoff Completed per policy Notes Mental Status: alert / awake / arousable Patient Amnestic to Procedure: Yes Nausea / Vomiting: adequately controlled Pain: adequately controlled Airway Patency, RR, SpO2: stable & adequate BP & HR: stable & adequate Hydration State: stable & adequate Anesthetic Complications: no major complications apparent and Pt Satisfied with anesthetic care
--- NOTE | 2019-01-17 16:33 | Discharge Summary ---
Date of Service January 17, 2019 Admission HPI Per Admitting Provider 63 y/o F c/o abd pain. Pt states that she has been having sharp, stabbing R sided abd pain for the past year. It would come and go periodically, but was not a constant issue. She states she would have emesis shortly after eating about once every two weeks and pain with correlate with this. She states she could not eat any type of gravy, milk, fatty foods, but this also happened at times with spaghetti or other items that she would be able to tolerate other times. On Thursday, pt's started with "the flu". This is described as cramping abd pain, n/v/d. Pt woke at 4a with the same sx, although she did not have diarrhea. She was constipated instead. She states she had about 12 hrs of frequent vomiting. She was seen in the ED on Thursday and sent home. She returned about 36 hours later because of abd pain. She had a neg work-up, including GB US and CTAP. She has continued to feel unwell and returned again tonight due to pain. She has not had emesis in the last few days, but has been eating toast and other light items and taking zofran. Pt feels she has two different types of abd pain currently. She has a cramping, aching pain that is across her entire abd. She also notes a much more intense and frequent version of the R sided, sharp, stabbing pain that she has been having intermittently for the last year. It is far more painful "like a knife stabbing me" and it is happening more often. It was especially worse when she was having severe emesis prior and now that this has stopped, it is much worse with coughing or any movement. This pain is in the same location as it has been over the last year, but much more intense. She says she has never had pain like this prior. She had fever/chills initially, but this has stopped. She did not have any emesis yesterday or today, but states that "I was close to throwing up" when they took her to CT scan today. Pt denies chest pain, LE pain or swelling. Pt does have SOB with prolonged coughing, however is a baseline issue for her. Pt was given morphine in the ED and this has not helped at all with the stabbing pain. Principal Diagnosis Abd pain NOS--resolved Pt is doing quite well. She did have some of the R sided stabbing abd pain yesterday, but only with coughing. She has had no abd pain at all today. She underwent c-scope without issue. She was able to eat a full meal s/p c-scope and is requesting to go home. Pt denies fever, SOB, chest pain, n/v/c/d, LE pain or swelling. Pertinent positives and negatives reviewed in HPI--all others negative Discharge Exam Constitutional WD/WN, vitals as above Eyes normal visual zaldivar by confrontation and + anicteric sclerae Neck normal visual inspection and trachea midline Respiratory normal respiratory effort, lungs clear to auscultation Cardiovascular Rate/Rhythm: regular rate and regular rhythm Gastrointestinal (Abdomen) Inspection/Auscultation: + abdomen distended Percussion/Palpation: abdomen soft; abdomen nontender Musculoskeletal Head/Neck/Chest: normocephalic and head atraumatic Skin no rashes, warm and dry Neurologic awake; not confused Speech / Cognition: normal speech Psychiatric A+Ox3, euthymic affect Discharge Data Allergies Allergy/AdvReac Type Severity Reaction Status Date / Time bupropion Allergy Severe muscle Verified 01/17/19 12:13 pains and cramps prochlorperazine Allergy Intermediate restless Verified 01/17/19 12:13 codeine Allergy Mild GI Verified 01/17/19 12:13 INTOLERANCE erythromycin base Allergy Mild DIZZINESS Verified 01/17/19 12:13 levothyroxine Allergy Unknown HIVES Verified 01/17/19 12:13 metformin Allergy Unknown "METRFORMIN Verified 01/17/19 12:13 ALLERGY"?? mold Allergy Unknown CHEST Verified 01/17/19 12:13 CONGESTION paroxetine Allergy Unknown BAD DREAMS Verified 01/17/19 12:13 house dust Allergy Verified 01/17/19 12:13 lisinopril Allergy Verified 01/17/19 12:13 milk AdvReac Unknown GI DISTRESS Verified 01/17/19 12:13 Consultations 01/15/19 18:20 ED Decision to Admit Stat 01/16/19 09:24 Consult Gastroenterology Routine 01/16/19 17:13 Consult General Surgery Routine Procedures Performed Operation Date: 01/17/19 17:30 Actual Procedures p Colonoscopy Biopsy Cytology(Not Applicable) - Edgar Green MD Ordered Studies 01/15/19 14:24 CT abd pelvis oral and IV con Stat 01/15/19 20:05 MR MRCP Stat Hospital Course (1) Right sided abdominal pain: * Acute on chronic, has been going on x 1 year, worse/more frequent in the last 1 week * Uncertain etiology -- ? nonspecific colitis vs infectious vs GIB vs cholecystitis (although LFTs wnl) v * Ultrasound GB with sludge, 6mm CBD, no stone visualized. * MRCP without evidence of ductal dilatation or calculi * GI with c-scope 01/17, noted for colitis and inflammation * Pain is resolved today and tolerated PO s/p c-scope, requesting d/c as she feels no abd pain * Gen surg c/s prior to c-scope, doubt GB etiology, can f/u as outpt if pain returns * Lyme neg * Flu neg (2) Colitis: Seen on CT in descending colon and again on c-scope Likely viral GE given with same acute sx, possibly irritated chronic issue further?? Is NOT on antibiotics currently Afebrile, no leukocytosis Has mild LLQ pain No evidence of abscess or microperforation on CT (3) Chronic kidney disease, stage III (moderate): * Baseline creat 1.2, GFR 35 * Creat 1.5 on admission -- likely secondary to dehydration * Creat WNL to 1.0 on d/c * Avoid all nephrotoxic agents, renally dose medications when appropriate * Patient will need repeat counseling to avoid Aleve/ibuprofen prior to discharge as she is currently taking 4-5x/wk * follows with Nephro as outpt (4) COPD, moderate: * Continue home albuterol * should not be on both Brovana and inhaler with budesonide--> dc Brovana * Takes PRN steroids on almost monthly basis for asthmatic COPD (5) Depression with anxiety: * continue home sertraline 25mg (6) Dyslipidemia: * Holding crestor while NPO (7) Esophageal reflux disease: * continue protonix 40mg BID (8) Hypertension: * resume home meds (9) Headache, migraine: * PRN triptan (10) Hypothyroidism: * continue home levothyroxine * TSH 0.485 5 months ago (11) Uncontrolled type 2 diabetes mellitus with kidney complication, with long- term current use of insulin: A1c 8.3 01/16 (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42 * No treatment * Attributed to uncontrolled DM * continue daily Zyrtec (13) Anemia: mild, hgb 10.3, could be somewhat hemodilutional -follow CBC in AM No evidence of GI bleeding or bleeding from anywhere (14) DVT prophylaxis: * SCDs, no chemical means due to procedures Total Time Total Time Spent Total Time Spent (In Minutes): >30 Discharge Plan Discharge Items Patient Disposition: Home - Self-Care Reason For Visit: ABD PAIN Discharge Diagnosis: abdominal pain, NOS Activity: Resume your previous activity Non-emergency contact: Primary Care Provider Call non-emergency contact if: you have any medication questions, your symptoms worsen and your pain is worsening Follow-up/Referrals: Corey Mcghee MD [Primary Care Provider] - Diet: Carb Consistent or DM2 Addtl Attending Provider Instructions: You can follow up with surgery if your abdominal pain returns You should see your PCP in 3-5 days for a follow up Pending Studies at Discharge: Yes Studies:: colonoscopy biopsies Stand-Alone Forms: Call Back Authorization, [facility], Smoking Cessation Medications and DC Order Prescriptions: Continued insulin lispro [Humalog U-100 Insulin] 100 unit/mL solution 84 units SQ .COMPLEX Qty: 3 RF: 5 trazodone 50 mg tablet 50 mg PO HS PRN (Reason: insomnia) Qty: 30 RF: 5 sumatriptan succinate 50 mg tablet 50 mg PO Q2H PRN (Reason: migraine headache) Qty: 10 RF: 5 ipratropium-albuterol 0.5 mg-3 mg(2.5 mg base)/3 mL solution for nebulization 3 ml inhalation TID PRN (Reason: wheezing) Qty: 4 RF: 0 Combivent Respimat 20-100 mcg/actuation mist 1 puffs INH QID PRN (Reason: Shortness Of Breath) RF: 0 Brovana 15 mcg/2 mL solution for nebulization 2 ml INH Q12H RF: 0 Breo Ellipta 100-25 mcg/dose blister with device 1 puffs INH DAILY PRN (Reason: Allergy Symptoms) RF: 0 rosuvastatin 5 mg tablet 5 mg PO .COMPLEX RF: 0 methylprednisolone 4 mg tablet 4 mg PO DAILY PRN (Reason: Hives) RF: 0 sodium chloride [Eckerty Saline] 0.65 % aerosol,spray 1 sprays INTNAS BID PRN (Reason: Allergy Symptoms) RF: 0 Lantus U-100 Insulin 100 unit/mL solution 30 units SQ HS RF: 0 clonidine HCl 0.1 mg tablet 0.1 mg PO BID PRN (Reason: hypertensive emergency) RF: 0 cetirizine 10 mg tablet 10 mg PO QAM RF: 0 chlorthalidone 25 mg tablet 25 mg PO QAM RF: 0 amlodipine 5 mg tablet 5 mg PO QAM RF: 0 levothyroxine [Unithroid] 88 mcg tablet 88 mcg PO QAM RF: 0 pantoprazole 40 mg tablet,delayed release (DR/EC) 40 mg PO HS RF: 0 sertraline 25 mg tablet 25 mg PO QAM RF: 0 montelukast 10 mg tablet 10 mg PO QAM RF: 0 losartan 100 mg tablet 100 mg PO QAM RF: 0 potassium chloride 20 mEq tablet extended release 20 meq PO HS RF: 0 aspirin 81 mg Tablet,Delayed Release (Dr/Ec) 81 mg PO QAM RF: 0 hydrochlorothiazide 12.5 mg capsule 12.5 mg PO QAM RF: 0 guaifenesin [Mucinex] 600 mg Tablet Extended Release 12hr 600 mg PO QAM RF: 0 dicyclomine 10 mg capsule 10 mg PO TID Qty: 15 RF: 0 ondansetron 4 mg tablet,disintegrating 4 mg PO Q6H PRN (Reason: nausea and vomiting) Qty: 20 RF: 0 Discharge Orders: Discharge Order (Routine); Ordered 01/17/19 Ordered By: Ellen Reyez Admission Data Admit Date/Time: 01/17/19 01:55 Attending Provider: Ellen Reyez Admit Provider: Ellen Reyez Primary Care Provider: Corey Mcghee V. Other Providers: Ellen Reyez ; Riky Arias ; Edgar Green Other Interventions: Discharge Summary Assessment (RN) Last Done: 01/17/19 16:33 DC Date/Time DO NOT enter until pt leaves facility: 01/17/19 16:51
[2019-01-17 16:34] VITALS: BP 171/86; PULSE 68
[2019-01-17] MEDS ORDERED: INSULIN GLARGINE SOLOSTAR 100 UNITS/ML 3 ML PEN SC SCH (21:00)
[2019-01-18 10:48] LABS: EBV Nuclear Ag Antibody >600.00 U/ML
== END 2019-01-17 16:51 | disposition home or self-care (01) | DRG 392 ==
LOC: 4W 14:08 → ED 14:08 → SUATTDRO 18:59 → 4W 19:45 → SUATTDRO 01-17 01:55

== ENCOUNTER 2021-10-20 10:20 | Inpatient (IN) ==
[2021-10-20] MEDS ORDERED: SODIUM CHLORIDE 0.9% 500 ML IV STA (10:41)
[2021-10-20] MEDS ORDERED: SODIUM CHLORIDE 0.9% 1000ML 1,000 ML IV STA (10:41)
[2021-10-20] MEDS ORDERED: ONDANSETRON INJ 2 MG/ML 2 ML VIAL IV STA (11:04)
[2021-10-20 11:18] LABS: Hematocrit (blood only) 37.8 % (34.1-44.9); Hemoglobin 13.1 g/dl (12.0-16.0); Mean Corpuscular Hemoglobin 31.1 pg (25.0-34.0); Mean Corpuscular Hgb Conc 34.7 g/dL (32.0-36.0); Mean Corpuscular Volume 89.8 fL (80.0-100.0); Mean Platelet Volume 9.9 fL (9.4-12.3); Platelet Count 263 K/uL (130-400); RDW Coefficient of Variation 12.3 % (11.5-14.5); RDW Standard Deviation 40.7 fL (36.4-46.3); Red Blood Count 4.21 M/uL (3.93-5.22); White Blood Count 14.57 K/ul (4.8-10.8)
[2021-10-20] MEDS: HYDROmorphone INJ 0.5 MG/0.5 ML SYR IV PRN ×3 (11:30→21:54)
--- NOTE | 2021-10-20 11:32 | CT Scan Report ---
CT abd pelvis wo con CLINICAL HISTORY: Abdominal pain. COMPARISON STUDY: 01/15/2019 CT DOSE: 648.47 mGy.cm TECHNIQUE: Standard CT of the Abdomen and Pelvis was performed without IV contrast. The patient did not receive oral contrast. A dose lowering technique was utilized adhering to the principles of LENIN Dyer. FINDINGS: Lung base: There is elevation of hemidiaphragms bilaterally with minimal bibasilar atelectasis. Abdominal cavity: There is no evidence for abdominal mass, adenopathy or ascites. Liver: The liver is homogeneous in attenuation on these limited noncontrast images.. Spleen: The spleen is homogeneous in attenuation on these limited noncontrast images. Pancreas: The pancreas is homogeneous in attenuation on these limited noncontrast images. Gall Bladder: The gallbladder is well distended with no evidence for cholelithiasis, wall thickening or pericholecystic edema.. Adrenal glands: The adrenal glands are normal in size and attenuation on these limited noncontrast im ages. Kidneys: The kidneys are homogeneous in attenuation on these limited noncontrast images. There is no evidence for gross renal mass, calculus or hydronephrosis bilaterally. Bowel: There is a small hiatal hernia. The bowel loops are normally placed within the abdomen and pel vis without evidence for dilatation or obstruction. There is no evidence for mass lesion. There is si gmoid diverticulosis without evidence for mild sigmoid diverticulitis. Perisigmoidal inflammatory evgeny nges are present without evidence for perforation or abscess. There is no evidence for free air. Ther e is a normal retrocecal appendix. Bladder: There is no evidence for focal bladder wall thickening, calculus or diverticulum. : There is no evidence for pelvic mass or adenopathy. Vasculature: There is no evidence for focal aneurysmal dilatation of the abdominal aorta. Osseous structures: There is no acute osseous pathology. IMPRESSION: 1. Mild sigmoid diverticulitis without evidence for perforation or abscess. 2. No other evidence for acute intra-abdominal or pelvic abnormality on these limited noncontrast les ges. 3. Additional nonacute findings are delineated above. ACT 112: Negative or not required by law. Electronically signed by: Umesh Olivia M.D. 10/20/2021 11:30 AM
[2021-10-20] MEDS ORDERED: AMPICILLIN/SULBACTAM SOD 3,000 MG in 0.9 % SODIUM CHLORIDE 100 ML IV STA (11:34)
[2021-10-20 11:36] LABS: Basophils # (auto) 0.03 K/uL (0-0.2); Basophils % (auto) 0.2 %; Eosinophils # (auto) 0.01 K/uL (0-0.50); Eosinophils % (auto) 0.1 %; Immature Granulocytes # (auto) 0.06 K/uL (0.00-0.02); Immature Granulocytes % (auto) 0.4 %; Lymphocytes # (auto) 0.61 K/uL (1.2-3.4); Lymphocytes % (auto) 4.2 %; Monocytes # (auto) 0.61 K/uL (0.24-0.82); Monocytes % (auto) 4.2 %; Neutrophils # (auto) 13.25 K/uL (1.4-6.5); Neutrophils % (auto) 90.9 %; RBC Morphology Unremarkable
[2021-10-20 11:57] LABS: Albumin Globulin Ratio 1.5 (0.9-2); Albumin Level 4.3 gm/dl (3.4-5.0); BUN Creatinine Ratio 20.4 (10-20); Bilirubin,Total 0.6 mg/dl (0.2-1.0); Calcium 9.5 mg/dl (8.5-10.1); Creatinine Clr Calc Pharmacy 51.5 ml/min; Est GFR (African American) 62.8 ml/min; Est GFR (Non-African American) 54.2 ml/min; Globulin 2.9 gm/dl (2.5-4.0); Potassium 3.9 mmol/L (3.5-5.1); Total Protein 7.2 gm/dl (6.0-8.3)
[2021-10-20] MEDS ORDERED: PIPERACILLIN/TAZOBACTAM 4.5 GM/120 ML BAG IV ONE (12:30)
--- NOTE | 2021-10-20 12:42 | History & Physical Report ---
Date of Service October 20, 2021 Assessment & Plan (1) Diverticulitis of colon with perforation: Plan: acute sigmoid diverticulitis with microperforation. this is in the setting of fairly extensive baseline diverticular disease based on colonoscopy performed in 01/2019. she has been treated for diverticulitis in the past but to her knowledge has never had radiographic confirmation of those prior episodes. no evidence of abscess or phlegmon or macroperforation at this time. plan - * NPO except meds * generous IV fluids * pain meds * anti-emetics * cont IV zosyn q8h * gen surg consult for additional recs (2) Controlled type 2 diabetes mellitus with kidney complication, with long-term current use of insulin: Plan: patient is on a humalog pump and is adept at its use. she also has a continuous glucose monitoring system in place. last HbA1C was 7.8% in August 2021; follows with [facility]. will allow patient to continue her insulin pump per her usual home parameters. check BSGs q6h. will ask pharmacy to consult as well in the event that significant changes are needed in basal or bolus settings on her pump. (3) Asthma: Plan: no exacerbation at this time. bronchodilators prn. cont breo 1 puff daily. (4) Insomnia: Plan: cont trazodone HS. (5) Esophageal reflux disease: Plan: continue pantoprazole BID. (6) Hypertension: Plan: in the setting of #1 above her BPs are normal or low-normal. thus, hold her amlodipine, losartan, and chlorthalidone for now. check mag level. follow BPs and restart some or all of her home meds if necessary. (7) Hypothyroidism: Plan: TSH was mildly suppressed in 08/2021. It does not appear based on records that her unithyroid dose was adjusted at that time. Cont current dose of 88mcg daily. (8) Dyslipidemia: Plan: cont statin agent - crestor 5mg daily LFTs wnl (9) Chronic kidney disease, stage III (moderate): Plan: stage 3a BMP in am for stability (10) DVT prophylaxis: Plan: lovenox 40mg daily Plan updated at bedside History of Present Illness Chief Complaint: abdominal pain, vomiting Primary Care Provider: DO Olamide Engle 66yo female with type 2 diabetes on insulin pump, IBS-C, diverticular disease as seen on past colonoscopy, and HTN presents from home with lower abdo georgie pain and vomiting. She states that yesterday morning she thought she was constipated and took her Linzess. Her lower abdomen was uncomfortable at that time. She had a small, firm/hard bowel movement, followed by loose stool, then another small hard bowel movement. Despite having these stools she continued with lower abdominal discomfort - worst in the RLQ and suprapubic region, and minimal pain in the LLQ. She managed to eat dinner last pm despite the pain. She went to bed last evening, and then about 0200 early today she awoke with severe lower abdominal pain and multiple episodes of vomiting. The vomiting was nonbilious and nonbloody. She denies any bright red bleeding per rectum. Since the pain was severe and unremitting she finally came to the ER this am for evaluation. CT abd/pelvis showed sigmoid diverticulitis with microperforation. A dose of IV zosyn was given. The patient is on an insulin humalog pump at home and she also has a continuous glucose monitoring system in place as well. BSGs have ranged upper 100s to low 200s since yesterday. Allergies Allergy/AdvReac Type Severity Reaction Status Date / Time bupropion Allergy Severe muscle Verified 08/28/21 16:07 pains and cramps codeine Allergy Intermediate GI Verified 08/28/21 16:07 INTOLERANCE erythromycin base Allergy Intermediate DIZZINESS Verified 08/28/21 16:07 levothyroxine Allergy Intermediate HIVES Verified 08/28/21 16:07 mold Allergy Intermediate CHEST Verified 08/28/21 16:07 CONGESTION prochlorperazine Allergy Intermediate restless Verified 08/28/21 16:07 house dust Allergy Unknown Unknown Verified 08/28/21 16:07 lisinopril Allergy Unknown Unknown Verified 08/28/21 16:07 metformin Allergy Unknown "METRFORMIN Verified 08/28/21 16:07 ALLERGY"?? milk AdvReac Intermediate GI DISTRESS Verified 08/28/21 16:07 paroxetine AdvReac Intermediate BAD DREAMS Verified 08/28/21 16:07 Home Medications Medication Instructions Recorded Confirmed Type sumatriptan succinate 50 mg tablet 50 mg PO Q2H PRN migraine headache 09/16/18 08/28/21 Rx #10 tabs sodium chloride 0.65 % nasal spray 1 sprays intranasal BID PRN 10/08/18 08/28/21 History aerosol ([place] Saline) Allergy Symptoms aspirin 81 mg tablet,delayed 81 mg PO QAM 01/11/19 08/28/21 History release cetirizine 10 mg tablet 10 mg PO QAM 01/11/19 08/28/21 History clonidine HCl 0.1 mg tablet 0.1 mg PO BID PRN hypertensive 01/11/19 08/28/21 History emergency guaifenesin 600 mg tablet, 600 mg PO QAM 01/11/19 08/28/21 History extended release 12 hr (Mucinex) sertraline 25 mg tablet 25 mg PO DAILY #90 tabs 07/01/19 08/28/21 Rx nebulizer accessories #1 ea 09/19/19 08/22/21 Rx trazodone 50 mg tablet 50 mg PO HS PRN insomnia #90 tabs 12/15/19 08/28/21 Rx pantoprazole 40 mg tablet,delayed 40 mg PO BID #180 tabs 01/02/20 08/28/21 Rx release flash glucose scanning reader #1 ea 12/06/20 08/28/21 Rx (FreeStyle Gagan 2 [place]) albuterol sulfate 90 mcg/actuation 2 puff inhalation QID PRN 12/26/20 08/28/21 Rx aerosol inhaler (Ventolin HFA) shortness of breath or wheezing #18 grams cholecalciferol (vitamin D3) 10 10 mcg PO DAILY 12/26/20 08/28/21 History mcg (400 unit) capsule cyanocobalamin (B12)-cobamamide 1 tab sublingual DAILY 12/26/20 08/28/21 History 5,000 mcg-100 mcg sublingual tablet (B-12 Plus) esomeprazole magnesium 20 mg 20 mg PO DAILY 12/26/20 08/28/21 History capsule,delayed release fluticasone furoate 100 1 inh inhalation DAILY PRN Allergy 12/26/20 08/28/21 Rx mcg-vilanterol 25 mcg/dose Symptoms #60 ea inhalation powder (Breo Ellipta) ipratropium 0.5 mg-albuterol 3 mg 3 ml inhalation TID PRN wheezing 12/26/20 08/28/21 Rx (2.5 mg base)/3 mL nebulization #4 mL soln losartan 100 mg tablet 100 mg PO DAILY 12/26/20 08/28/21 History amlodipine 5 mg tablet 5 mg PO QAM #90 tabs 02/21/21 08/28/21 Rx chlorthalidone 25 mg tablet 25 mg PO DAILY 05/08/21 08/28/21 History insulin lispro 100 unit/mL 70 unit continuous subcutaneous 05/08/21 08/28/21 History subcutaneous solution (Humalog infusion DAILY U-100 Insulin) montelukast 10 mg tablet 10 mg PO QAM 05/08/21 08/28/21 History oblwmqnldtvve-QG-ihnstijtyksfi-guaifen 2 tab PO DIRECTED PRN Cold 05/08/21 08/28/21 History 5 mg-10 mg-325 mg-200 mg tablet Symptoms flash glucose sensor (FreeStyle #3 ea 05/13/21 08/28/21 Rx Gagan 2 Sensor kit) miconazole nitrate 2 % vaginal vaginal 05/28/21 08/28/21 History cream (Monistat 7) Unithroid 88 mcg tablet 88 mcg PO QAM #90 tabs 06/17/21 08/28/21 Rx (levothyroxine) Omnipod Dash Pods (Gen 4) (insulin #15 ea 06/28/21 08/22/21 Rx pump cart,cont inf,BT) semaglutide 0.25 mg or 0.5 mg (2 0.5 mg (0.4 mL) subcut Q7D #1.5 mL 08/22/21 08/28/21 Rx mg/1.5 mL) subcutaneous pen injector (Ozempic) rosuvastatin 5 mg tablet 5 mg PO DAILY #90 tabs 08/28/21 08/28/21 Rx Past Med/Surg History Medical History (Updated 10/21/21 @ 05:[address]) Chronic bronchitis Chronic kidney disease, stage III (moderate) Colitis COPD, moderate Depression with anxiety Diabetic macular edema Diabetic nephropathy Dyslipidemia Esophageal reflux disease Headache, migraine History of cellulitis History of female infertility History of gastrointestinal hemorrhage History of herpes zoster History of in vitro fertilization History of leukocytosis Hypertension Hypothyroidism Internal hemorrhoids Microalbuminuria Osteopenia Right sided abdominal pain Statin intolerance Surgical History H/O dilation and curettage H/O sinus surgery History of in vitro fertilization History of incision and drainage Family History Mother Coronary arteriosclerosis Diabetes CHF (congestive heart failure) Sister Diabetes CHF (congestive heart failure) Cardiac arrest Father Macular degeneration Hypertension Stroke Suicide age 85 from self-inflicted gunshot wound Grandmother (Maternal) Breast cancer Social History (Updated 10/20/21 @ 13:[address]) Smoking Status: Never smoker Hx Alcohol Use: No Hx Substance Use: No Preferred Language: Albanian Communication Ability: Effective Sieve Repairer Required: No Beliefs That Will Affect Care: None marital status: Current Living Situation: Spouse Current Living Situation Comment: lives near [place] current occupational status: 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 How many Children do You have: 0 Other Information That Helps Us Care for You: No Feels Safe at Home: Yes Safety Concerns: Feels Safe At This Time Seatbelt Use: always Assistive Devices: None, Denture - Upper, Denture - Lower and Glasses Review of Systems Review of Systems: gen - no fevers, some chills today; 7 pounds of weight loss (intentional); had been eating well until today eyes - macular degeneration HENT - no dysphagia; chronic sinus issues CV - no chest pain with activity pulm - no cough, no wheezing, no dyspnea on exertion GI - abd pain, nausea, emesis; "dark" stools for "long time" (months); no BRBPR - no dysuria musculo - chronic left knee pain neuro - chronic paresthesias of legs, L>R, due to DM neuropathy skin - no active rash psych - no depression endo - diabetes, on insulin pump Physical Exam Physical Exam: gen - looks unwell, but nontoxic, obese eyes - PERRL HENT - TMs clear b/l; nose clear; mouth - dry MM neck - no JVD, shotty lymph node left lower neck heart - 2/6 BERTA LSB, RR, borderline tachy, s1 s2 lungs - CTA b/l abd - mildly distended but no peritoneal signs, BS+, tender RLQ/suprapubic region to palpation, no pain LLQ, no HSM; insulin pump present in the RLQ ext - no edema, pulses 2+ b/l, continuous glucose monitoring device on right arm skin - hemosiderin deposition b/l feet (hyperpigmentation) neuro - strength 5/5 x 4 exts; DTRs 2+ b/l psych - a/o x 3 lymph - shotty lymph node left lower anterior neck SYDNI deferred Results & Data Results & Data ([facility]) Vital Signs (Past 12 Hours) Vital Signs Temp Pulse Pulse Resp BP BP Pulse Ox 10/20/21 12:20 94 H 16 122/80 90 10/20/21 11:00 90 10/20/21 10:34 36.4 C L 106 H 20 129/75 95 O2 Del Method 10/20/21 12:20 Room Air 10/20/21 11:00 Room Air 10/20/21 10:34 Room Air Laboratory Results Laboratory Results - last 24 hr 10/20/21 10/20/21 10/20/21 11:00 11:00 11:00 WBC 14.57 H RBC 4.21 Hgb 13.1 Hct 37.8 MCV 89.8 MCH 31.1 MCHC 34.7 RDW Std Deviation 40.7 RDW Coeff of Mckay 12.3 Plt Count 263 MPV 9.9 Immature Gran % (Auto) 0.4 Neut % (Auto) 90.9 Lymph % (Auto) 4.2 [place] % (Auto) 4.2 Eos % (Auto) 0.1 Baso % (Auto) 0.2 Neut # (Auto) 13.25 H Lymph # (Auto) 0.61 L [place] # (Auto) 0.61 Eos # (Auto) 0.01 Baso # (Auto) 0.03 Immature Gran # (Auto) 0.06 H RBC Morphology Unremarkable Sodium 137 Potassium 3.9 Chloride 96 L Carbon Dioxide 30 Anion Gap 11 BUN 22 Creatinine 1.08 Est Cr Clr Drug Dosing 51.5 Est GFR ( Amer) 62.8 Est GFR (Non-Af Amer) 54.2 BUN/Creatinine Ratio 20.4 H Glucose 204 H POC Glucose Calcium 9.5 Magnesium 1.9 Total Bilirubin 0.6 AST 14 ALT 12 Alkaline Phosphatase 51 Total Protein 7.2 Albumin 4.3 Globulin 2.9 Albumin/Globulin Ratio 1.5 Lipase 48 Urine Color Urine Appearance Urine pH Ur Specific [place] Urine Protein Urine Glucose (UA) Urine Ketones Urine Blood Urine Nitrite Urine Bilirubin Urine Urobilinogen Ur Leukocyte Esterase SARS-CoV-2, RNA, NAAT 10/20/21 10/20/21 10/20/21 12:25 13:23 13:25 WBC RBC Hgb Hct MCV MCH MCHC RDW Std Deviation RDW Coeff of Mckay Plt Count MPV Immature Gran % (Auto) Neut % (Auto) Lymph % (Auto) [place] % (Auto) Eos % (Auto) Baso % (Auto) Neut # (Auto) Lymph # (Auto) [place] # (Auto) Eos # (Auto) Baso # (Auto) Immature Gran # (Auto) RBC Morphology Sodium Potassium Chloride Carbon Dioxide Anion Gap BUN Creatinine Est Cr Clr Drug Dosing Est GFR ( Amer) Est GFR (Non-Af Amer) BUN/Creatinine Ratio Glucose POC Glucose 171 H Calcium Magnesium Total Bilirubin AST ALT Alkaline Phosphatase Total Protein Albumin Globulin Albumin/Globulin Ratio Lipase Urine Color Pending Urine Appearance Pending Urine pH Pending Ur Specific [place] Pending Urine Protein Pending Urine Glucose (UA) Pending Urine Ketones Pending Urine Blood Pending Urine Nitrite Pending Urine Bilirubin Pending Urine Urobilinogen Pending Ur Leukocyte Esterase Pending SARS-CoV-2, RNA, NAAT NEGATIVE Diagnostic Findings Abdomen/Pelvis CT 10/20/21 11:04 CT abd pelvis wo con CLINICAL HISTORY: Abdominal pain. COMPARISON STUDY: 01/15/2019 CT DOSE: 648.47 mGy.cm TECHNIQUE: Standard CT of the Abdomen and Pelvis was performed without IV contrast. The patient did not receive oral contrast. A dose lowering technique was utilized adhering to the principles of ALARA. FINDINGS: Lung base: There is elevation of hemidiaphragms bilaterally with minimal bibasilar atelectasis. Abdominal cavity: There is no evidence for abdominal mass, adenopathy or ascites. Liver: The liver is homogeneous in attenuation on these limited noncontrast images.. Spleen: The spleen is homogeneous in attenuation on these limited noncontrast images. Pancreas: The pancreas is homogeneous in attenuation on these limited noncontrast images. Gall Bladder: The gallbladder is well distended with no evidence for cholelithiasis, wall thickening or pericholecystic edema.. Adrenal glands: The adrenal glands are normal in size and attenuation on these limited noncontrast images. Kidneys: The kidneys are homogeneous in attenuation on these limited noncontrast images. There is no evidence for gross renal mass, calculus or hydronephrosis bilaterally. Bowel: There is a small hiatal hernia. The bowel loops are normally placed within the abdomen and pelvis without evidence for dilatation or obstruction. There is no evidence for mass lesion. There is sigmoid diverticulosis without evidence for mild sigmoid diverticulitis. Perisigmoidal inflammatory changes are present without evidence for perforation or abscess. There is no evidence for free air. There is a normal retrocecal appendix. Bladder: There is no evidence for focal bladder wall thickening, calculus or diverticulum. : There is no evidence for pelvic mass or adenopathy. Vasculature: There is no evidence for focal aneurysmal dilatation of the abdominal aorta. Osseous structures: There is no acute osseous pathology. IMPRESSION: 1. Mild sigmoid diverticulitis without evidence for perforation or abscess. 2. No other evidence for acute intra-abdominal or pelvic abnormality on these limited noncontrast images. 3. Additional nonacute findings are delineated above. ACT 112: Negative or not required by law. Electronically signed by: Umesh Olivia M.D. 10/20/2021 11:30 AM Code Status & VTE Plan Code Status full code PG Care Time/CCT Total # of Minutes Spent Total Time Spent with Patient: Total time spent is greater than 50% in coordination of care (as documented) at patient's floor/unit and/or counseling patient: Coding Level of Care Code 92656 Initial Inpt Care Lvl 2 Diagnoses Diverticulitis of colon with perforation K57.20 Controlled type 2 diabetes mellitus with kidney complication, with long-term current use of insulin E11.29; Z79.4 Asthma J45.909 Insomnia G47.00 Esophageal reflux disease K21.9 Hypertension I10 Hypothyroidism E03.9 Dyslipidemia E78.5 Chronic kidney disease, stage III (moderate) N18.3 DVT prophylaxis Z29.9
--- NOTE | 2021-10-20 13:00 | Emergency Department Note ---
Impression & Plan Diverticulitis of colon with perforation ED Provider Note INFORMANT: Patient ED PROVIDER(S): Lucio Sorensen MD CHIEF COMPLAINT: Abdominal pain PLAN: Disposition: Admitted Condition: Good Outpatient prescription management: none Referral: None MEDICAL DECISION MAKING: Patient presented to the emergency department complaining of abdominal pain. Work-up was initiated. She had a leukocytosis on CBC. Chemistry panel was unremarkable. Patient was treated with IV Dilaudid, Zofran, and normal saline. Her CT initially was reported as diverticulitis and she was given IV Unasyn after consultation with the ED pharmacist. I was contacted by Dr. Black who noted the patient had signs of small areas of free air. Due to this the patient was given IV Zosyn. Consultation was made with general surgery. I did discuss case with Bren who was covering for Dr. Franks. She will see the patient this afternoon in consultation. [facility] Patient will be admitted under the medicine service for further management. Triage Nursing notes reviewed and agree them. Vital Signs: reviewed and remarkable for no significant abnormalities Differential diagnosis: Appendicitis, ovarian cyst, ovarian torsion, ectopic , TOA, PID, infections, diverticulitis, UTI, obstruction, mesenteric ischemia, aortic pathology, inflammatory bowel disease, renal colic, PUD, pancreatitis, biliary pathology, hernia, volvulus, constipation, as well as other pathologies. Diagnostics interpreted by me: ECG: none Cardiac Monitoring: Cardiac monitoring ordered by me: The patient was placed on continuous cardiac monitoring and observed. It revealed a normal sinus rhythm at 94 beats per minute without ectopy or evidence of dysrhythmia. Imaging studies: CT imaging of the abdomen pelvis is concerning for perforated diverticulitis. I refer you to the EMR for further details. HPI: The patient is a 66year old female who presents to the Emergency Room with complaints of abdominal pain. This started last night and is worsening. The patient also notes the following associated symptoms, some constipation issues over the last few days, nausea, vomiting. The patient has found no relieving factors. Current pain is rated as 8/10. Patient states that she took a Linzess and had a bowel movement. She is concerned that she may be obstructed. Pt denies LOC, headache, fevers, chills, diaphoresis, visual changes, neck pain, chest pain, breathing difficulties, back pain, melena, hematochezia, urinary symptoms, numbness, weakness, lymphadenopathy, rash, or other complaints. ROS: See above HPI for pertinent positives & negatives. A total of 10 systems reviewed and were otherwise negative. PAST MEDICAL HISTORY:See Below , IBS PAST SURGICAL HISTORY:See Below, FAMILY HISTORY:See Below SOCIAL HISTORY:See Below, non-smoker HOME MEDICATIONS:See Below ALLERGIES:See Below VITALS:See Below PHYSICAL EXAMINATION: GENERAL: Awake, alert, uncomfortable-appearing, in no distress HENT: Normocephalic, atraumatic. Oropharynx unremarkable. EYES: Normal conjunctiva. Sclera non-icteric. NECK: Inspection normal. Non-tender. Supple. No nuchal rigidity. FROM. No masses. RESPIRATORY: Clear to auscultation. No wheezes. No rales. Normal respiratory effort. CARDIAC: Normal rate. Normal rhythm. No murmurs. No rubs. Extremities warm and well perfused. Pulses equal. No JVD. GI: Soft, non-distended. Diffuse tenderness to palpation. Moderate rebound and guarding. No masses. RECTAL: Deferred. MUSCULOSKELETAL: Atraumatic. Chest examination reveals no tenderness. The back is symmetrical on inspection without obvious abnormality. There is no CVA tenderness to palpation. No joint edema. LOWER EXTREMITIES: Calves are equal size bilaterally and non-tender. No edema. No discoloration. NEURO: Normal sensorium. No sensory or motor deficits noted. SKIN: No rash or jaundice noted. Lucio Sorensen MD Past Med/Surg History Medical History (Updated 10/20/21 @ 13:00 by Lucio Sorensen MD) Chronic bronchitis Chronic kidney disease, stage III (moderate) Colitis COPD, moderate Depression with anxiety Diabetic macular edema Diabetic nephropathy Dyslipidemia Esophageal reflux disease Headache, migraine History of cellulitis History of female infertility History of gastrointestinal hemorrhage History of herpes zoster History of in vitro fertilization History of leukocytosis Hypertension Hypothyroidism Internal hemorrhoids Microalbuminuria Osteopenia Right sided abdominal pain Statin intolerance Surgical History H/O dilation and curettage H/O sinus surgery History of in vitro fertilization History of incision and drainage Family History Mother Coronary arteriosclerosis Diabetes CHF (congestive heart failure) Sister Diabetes CHF (congestive heart failure) Cardiac arrest Father Macular degeneration Hypertension Stroke Grandmother (Maternal) Breast cancer Social History Smoking Status: Never smoker Hx Alcohol Use: No Hx Substance Use: No Preferred Language: German Communication Ability: Effective Horse Buyer Required: No Beliefs That Will Affect Care: None marital status: Current Living Situation: Spouse current occupational status: employed 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 Feels Safe at Home: Yes Seatbelt Use: always Assistive Devices: None Allergies Allergies Allergy/AdvReac Type Severity Reaction Status Date / Time bupropion Allergy Severe muscle Verified 08/28/21 16:07 pains and cramps codeine Allergy Intermediate GI Verified 08/28/21 16:07 INTOLERANCE erythromycin base Allergy Intermediate DIZZINESS Verified 08/28/21 16:07 levothyroxine Allergy Intermediate HIVES Verified 08/28/21 16:07 mold Allergy Intermediate CHEST Verified 08/28/21 16:07 CONGESTION prochlorperazine Allergy Intermediate restless Verified 08/28/21 16:07 house dust Allergy Unknown Unknown Verified 08/28/21 16:07 lisinopril Allergy Unknown Unknown Verified 08/28/21 16:07 metformin Allergy Unknown "METRFORMIN Verified 08/28/21 16:07 ALLERGY"?? milk AdvReac Intermediate GI DISTRESS Verified 08/28/21 16:07 paroxetine AdvReac Intermediate BAD DREAMS Verified 08/28/21 16:07 Home Meds Home Medications Medication Instructions Recorded Confirmed sodium chloride 0.65 % nasal spray 1 sprays intranasal BID PRN 10/08/18 08/28/21 aerosol ([place] Saline) Allergy Symptoms aspirin 81 mg tablet,delayed 81 mg PO QAM 01/11/19 08/28/21 release cetirizine 10 mg tablet 10 mg PO QAM 01/11/19 08/28/21 clonidine HCl 0.1 mg tablet 0.1 mg PO BID PRN hypertensive 01/11/19 08/28/21 emergency guaifenesin 600 mg tablet, 600 mg PO QAM 01/11/19 08/28/21 extended release 12 hr (Mucinex) cholecalciferol (vitamin D3) 10 10 mcg PO DAILY 12/26/20 08/28/21 mcg (400 unit) capsule cyanocobalamin (B12)-cobamamide 1 tab sublingual DAILY 12/26/20 08/28/21 5,000 mcg-100 mcg sublingual tablet (B-12 Plus) esomeprazole magnesium 20 mg 20 mg PO DAILY 12/26/20 08/28/21 capsule,delayed release losartan 100 mg tablet 100 mg PO DAILY 12/26/20 08/28/21 chlorthalidone 25 mg tablet 25 mg PO DAILY 05/08/21 08/28/21 insulin lispro 100 unit/mL 70 unit continuous subcutaneous 05/08/21 08/28/21 subcutaneous solution (Humalog infusion DAILY U-100 Insulin) montelukast 10 mg tablet 10 mg PO QAM 05/08/21 08/28/21 [id number]-[id number]-guaifen 2 tab PO DIRECTED PRN Cold 05/08/21 08/28/21 5 mg-10 mg-325 mg-200 mg tablet Symptoms miconazole nitrate 2 % vaginal vaginal 05/28/21 08/28/21 cream (Monistat 7) Previous Rx's Medication Instructions Recorded sumatriptan succinate 50 mg tablet 50 mg PO Q2H PRN migraine headache 09/16/18 #10 tabs sertraline 25 mg tablet 25 mg PO DAILY #90 tabs 07/01/19 nebulizer accessories #1 ea 09/19/19 trazodone 50 mg tablet 50 mg PO HS PRN insomnia #90 tabs 12/15/19 pantoprazole 40 mg tablet,delayed 40 mg PO BID #180 tabs 01/02/20 release flash glucose scanning reader #1 ea 12/06/20 ([employer] Gagan 2 [place]) albuterol sulfate 90 mcg/actuation 2 puff inhalation QID PRN 12/26/20 aerosol inhaler (Ventolin HFA) shortness of breath or wheezing #18 grams fluticasone furoate 100 1 inh inhalation DAILY PRN Allergy 12/26/20 mcg-vilanterol 25 mcg/dose Symptoms #60 ea inhalation powder (Breo Ellipta) ipratropium 0.5 mg-albuterol 3 mg 3 ml inhalation TID PRN wheezing 12/26/20 (2.5 mg base)/3 mL nebulization #4 mL soln amlodipine 5 mg tablet 5 mg PO QAM #90 tabs 02/21/21 flash glucose sensor (FreeStyle #3 ea 05/13/21 Gagan 2 Sensor kit) Unithroid 88 mcg tablet 88 mcg PO QAM #90 tabs 06/17/21 (levothyroxine) Omnipod Dash Pods (Gen 4) (insulin #15 ea 06/28/21 pump cart,cont inf,BT) semaglutide 0.25 mg or 0.5 mg (2 0.5 mg (0.4 mL) subcut Q7D #1.5 mL 08/22/21 mg/1.5 mL) subcutaneous pen injector (Ozempic) rosuvastatin 5 mg tablet 5 mg PO DAILY #90 tabs 08/28/21 Results & Data (ED) Vital Signs Vital Signs - 24 hr 10/20/21 10:34 10/20/21 11:00 10/20/21 12:20 Temperature 36.4 C L Temperature Source Temporal Artery Scan Pulse Rate 106 H Pulse Rate [Left Finger] 94 H Respiratory Rate 20 16 Respiratory Effort / Characteristics Non-Labored Non-Labored Respiratory Depth Normal Normal Respiratory Pattern Regular Blood Pressure 129/75 Blood Pressure [Right Arm] 122/80 Blood Pressure Mean 93 Blood Pressure Mean [Right Arm] 94 Blood Pressure Position [Right Arm] Lying Pulse Oximetry 95 90 90 Oxygen Delivery Method Room Air Room Air Room Air Sepsis Recent Fever Within 48 Hours No Sepsis New/Unexplained Change in Mental Status N/A Sepsis Action Taken by Nursing No Action Required Laboratory Data Result diagrams: 10/20/21 11:00 10/20/21 11:00 Lab Results 10/20/21 10/20/21 10/20/21 Range/Units 11:00 11:00 12:25 WBC 14.57 H (4.8-10.8) K/ul RBC 4.21 (3.93-5.22) M/uL Hgb 13.1 (12.0-16.0) g/dl Hct 37.8 (34.1-44.9) % MCV 89.8 (80.0-100.0) fL MCH 31.1 (25.0-34.0) pg MCHC 34.7 (32.0-36.0) g/dL RDW Std Deviation 40.7 (36.4-46.3) fL RDW Coeff of Mckay 12.3 (11.5-14.5) % Plt Count 263 (130-400) K/uL MPV 9.9 (9.4-12.3) fL Immature Gran % (Auto) 0.4 % Neut % (Auto) 90.9 % Lymph % (Auto) 4.2 % [place] % (Auto) 4.2 % Eos % (Auto) 0.1 % Baso % (Auto) 0.2 % Neut # (Auto) 13.25 H (1.4-6.5) K/uL Lymph # (Auto) 0.61 L (1.2-3.4) K/uL [place] # (Auto) 0.61 (0.24-0.82) K/uL Eos # (Auto) 0.01 (0-0.50) K/uL Baso # (Auto) 0.03 (0-0.2) K/uL Immature Gran # (Auto) 0.06 H (0.00-0.02) K/uL RBC Morphology Unremarkable Sodium 137 (136-145) mmol/L Potassium 3.9 (3.5-5.1) mmol/L Chloride 96 L (98-107) mmol/L Carbon Dioxide 30 (21-32) mmol/L Anion Gap 11 (3-11) BUN 22 (6-23) mg/dl Creatinine 1.08 (0.6-1.2) mg/dl Est Cr Clr Drug Dosing 51.5 ml/min Est GFR ( Amer) 62.8 ml/min Est GFR (Non-Af Amer) 54.2 ml/min BUN/Creatinine Ratio 20.4 H (10-20) Glucose 204 H (70-99(Fasting)) mg/dl Calcium 9.5 (8.5-10.1) mg/dl Total Bilirubin 0.6 (0.2-1.0) mg/dl AST 14 (13-39) U/L ALT 12 (7-52) U/L Alkaline Phosphatase 51 (34-104) U/L Total Protein 7.2 (6.0-8.3) gm/dl Albumin 4.3 (3.4-5.0) gm/dl Globulin 2.9 (2.5-4.0) gm/dl Albumin/Globulin Ratio 1.5 (0.9-2) Lipase 48 (11-82) U/L SARS-CoV-2, RNA, NAAT NEGATIVE (NEGATIVE) Administered Medications Hydromorphone HCl (Hydromorphone Inj 0.5 Mg/0.5 Ml Syr) 0.25 mg IV Q15M PRN PRN Reason: Pain Stop: 11/03/21 11:03 Last Admin: 10/20/21 11:30 Dose: 0.25 mg Documented By: LUIS Sodium Chloride (Nss 1000ml) 1,000 mls @ 125 mls/hr IV .Q8H STA Stop: 10/20/21 18:40 Last Admin: 10/20/21 11:25 Dose: 125 mls/hr Documented By: LUIS Discontinued Medications Sodium Chloride (Nss) 500 mls @ 999 mls/hr IV .Q31M STA Stop: 10/20/21 11:11 Last Infusion: 10/20/21 12:06 Dose: 0 mls/hr Documented By: Admin: 10/20/21 11:25 Dose: 999 mls/hr Documented By: LUIS Ampicillin Sodium/Sulbactam Sodium 3,000 mg/ Sodium Chloride 108 mls @ 200 mls/hr IV NOW STA; Protocol Stop: 10/20/21 12:06 Last Infusion: 10/20/21 12:06 Dose: 0 mls/hr Documented By: Admin: 10/20/21 12:01 Dose: 200 mls/hr Documented By: SANTOS Ondansetron HCl (Ondansetron Inj 2 Mg/Ml 2 Ml Vial) 4 mg IV NOW STA Stop: 10/20/21 11:05 Last Admin: 10/20/21 11:26 Dose: 4 mg Documented By: LUIS Imaging Data Radiologist's Impression: Abdomen/Pelvis CT 10/20/21 11:04 CT abd pelvis wo con CLINICAL HISTORY: Abdominal pain. COMPARISON STUDY: 01/15/2019 CT DOSE: 648.47 mGy.cm TECHNIQUE: Standard CT of the Abdomen and Pelvis was performed without IV contrast. The patient did not receive oral contrast. A dose lowering technique was utilized adhering to the principles of ALARA. FINDINGS: Lung base: There is elevation of hemidiaphragms bilaterally with minimal bibasilar atelectasis. Abdominal cavity: There is no evidence for abdominal mass, adenopathy or ascites. Liver: The liver is homogeneous in attenuation on these limited noncontrast images.. Spleen: The spleen is homogeneous in attenuation on these limited noncontrast images. Pancreas: The pancreas is homogeneous in attenuation on these limited noncontrast images. Gall Bladder: The gallbladder is well distended with no evidence for cholelithiasis, wall thickening or pericholecystic edema.. Adrenal glands: The adrenal glands are normal in size and attenuation on these limited noncontrast images. Kidneys: The kidneys are homogeneous in attenuation on these limited noncontrast images. There is no evidence for gross renal mass, calculus or hydronephrosis bilaterally. Bowel: There is a small hiatal hernia. The bowel loops are normally placed within the abdomen and pelvis without evidence for dilatation or obstruction. There is no evidence for mass lesion. There is sigmoid diverticulosis without evidence for mild sigmoid diverticulitis. Perisigmoidal inflammatory changes are present without evidence for perforation or abscess. There is no evidence for free air. There is a normal retrocecal appendix. Bladder: There is no evidence for focal bladder wall thickening, calculus or diverticulum. : There is no evidence for pelvic mass or adenopathy. Vasculature: There is no evidence for focal aneurysmal dilatation of the abdominal aorta. Osseous structures: There is no acute osseous pathology. IMPRESSION: 1. Mild sigmoid diverticulitis without evidence for perforation or abscess. 2. No other evidence for acute intra-abdominal or pelvic abnormality on these limited noncontrast images. 3. Additional nonacute findings are delineated above. ACT 112: Negative or not required by law. Electronically signed by: Umesh Olivia M.D. 10/20/2021 11:30 AM Discharge Plan Visit Data Chief Complaint: Abdominal Pain Stated Complaint: ABD PAIN ED Provider: Lucio Sorensen Discharge Problem: Diverticulitis of colon with perforation Forms Stand Alone Forms: My [facility] Prescriptions Prescriptions: No Action sertraline 25 mg tablet 25 mg PO DAILY Qty: 90 3RF (DME) nebulizer accessories Kit See Rx Instructions .ROUTE .MEDSUPPLY Qty: 1 0RF Rx Instructions: Nebulizer tubing. Lifetime need. trazodone 50 mg tablet 50 mg PO HS PRN (Reason: insomnia) Qty: 90 1RF pantoprazole 40 mg tablet,delayed release (DR/EC) 40 mg PO BID Qty: 180 1RF (DME) FreeStyle Gagan 2 [place] Misc See Rx Instructions .ROUTE .MEDSUPPLY Qty: 1 0RF Rx Instructions: for use with sensors amlodipine 5 mg tablet 5 mg PO QAM Qty: 90 3RF (DME) FreeStyle Gagan 2 Sensor Kit See Rx Instructions .ROUTE .MEDSUPPLY Qty: 3 3RF Rx Instructions: change sensor every 2 weeks miconazole nitrate [Monistat 7] 2 % cream vaginal Rx Instructions: Recommend OTC monistat w/f/u call to notify how she is doing. levothyroxine [Unithroid] 88 mcg tablet 88 mcg PO QAM Qty: 90 1RF (DME) Omnipod Dash Pods (Gen 4) Cartridge See Rx Instructions .Route Qty: 15 12RF Rx Instructions: Change pod every 3 days rosuvastatin 5 mg tablet 5 mg PO DAILY Qty: 90 1RF sumatriptan succinate 50 mg tablet 50 mg PO Q2H PRN (Reason: migraine headache) Qty: 10 5RF Rx Instructions: PER PT "HAVEN'T FILLED SCRIPT IN A WHILE". sodium chloride [[place] Saline] 0.65 % aerosol,spray 1 sprays INTNAS BID PRN (Reason: Allergy Symptoms) cyanocobalamin-cobamamide [B-12 Plus] 5,000-100 mcg tablet, sublingual 1 tab sublingual DAILY cholecalciferol (vitamin D3) 10 mcg (400 unit) capsule 10 mcg PO DAILY esomeprazole magnesium 20 mg capsule,delayed release(DR/EC) 20 mg PO DAILY losartan 100 mg tablet 100 mg PO DAILY Breo Ellipta 100-25 mcg/dose blister with device 1 inh INH DAILY PRN (Reason: Allergy Symptoms) Qty: 60 5RF ipratropium-albuterol 0.5 mg-3 mg(2.5 mg base)/3 mL solution for nebulization 3 ml inhalation TID PRN (Reason: wheezing) Qty: 4 0RF albuterol sulfate [Ventolin HFA] 90 mcg/actuation HFA aerosol inhaler 2 puff inhalation QID PRN (Reason: shortness of breath or wheezing) Qty: 18 5RF Ozempic 0.25 mg or 0.5 mg(2 mg/1.5 mL) pen injector 0.5 mg subcut Q7D Qty: 1.5 5RF clonidine HCl 0.1 mg tablet 0.1 mg PO BID PRN (Reason: hypertensive emergency) cetirizine 10 mg tablet 10 mg PO QAM aspirin 81 mg Tablet,Delayed Release (Dr/Ec) 81 mg PO QAM guaifenesin [Mucinex] 600 mg Tablet Extended Release 12hr 600 mg PO QAM Tylenol Cold Multi-Symptom [id number] mg Tablet 2 tab PO DIRECTED PRN (Reason: Cold Symptoms) chlorthalidone 25 mg tablet 25 mg PO DAILY Rx Instructions: Take 1 tablet by mouth once daily montelukast 10 mg tablet 10 mg PO QAM insulin lispro [Humalog U-100 Insulin] 100 unit/mL solution 70 unit continuous subcutaneous infusion DAILY Rx Instructions: via insulin pump Referrals Referrals: Ag Vigil DO [Primary Care Provider] -
[2021-10-20 13:48] LABS: Appearance Urine Clear (Clear); Bacteria Urine Automated Negative (Negative); Bilirubin Urine Negative (Negative); Blood Urine Negative (Negative); Color Urine Yellow; Glucose Urine UA Negative (Negative); Ketones Urine Negative (Negative); Leukocyte Esterase Urine Negative (Negative); Nitrite Urine Negative (Negative); RBC Urine Automated 0-4 /hpf (0-4); Specific Gravity Urine 1.019 (1.000-1.030); Urobilinogen Urine Negative (Negative); pH Urine 7.5 (4.5-7.5)
[2021-10-20 13:57] LABS: Protein Urine 2+ (Negative)
[2021-10-20] MEDS ORDERED: SODIUM CHLORIDE 0.65% NA SOLN 45 ML (OCEAN) PRN (16:22)
[2021-10-20] MEDS ORDERED: [UNRECOGNIZED DRUG - OTHER] SCH (16:22)
[2021-10-20] MEDS ORDERED: NON-FORMULARY MEDICATION (Flash Glucose Scanning Reader [Freestyle Libre 2 Reader] misc) SCH (16:22)
[2021-10-20] MEDS ORDERED: ONDANSETRON INJ 2 MG/ML 2 ML VIAL IV PRN (16:22)
[2021-10-20] MEDS ORDERED: PHARMACY GLYCEMIC MGMT CONSULT PRN (16:22)
[2021-10-20] MEDS ORDERED: ALBUTEROL HFA 8 GM INHALER INH PRN (16:22)
[2021-10-20] MEDS ORDERED: ALBUT/IPRATROP 3MG/0.5MG NEB 3 ML VIAL INH PRN (16:22)
[2021-10-20] MEDS ORDERED: NON-FORMULARY MEDICATION (Flash Glucose Sensor [Freestyle Libre 2 Sensor] kit) SCH (16:22)
[2021-10-20] MEDS ORDERED: NITROGLYCERIN SL 0.4 MG/TAB TAB SL PRN (16:22)
--- NOTE | 2021-10-20 16:38 | Surgery Consultation ---
Date of Consultation October 20, 2021 Assessment & Plan (1) Diverticulitis of colon with perforation: Plan 66-year-old female with diverticulitis of sigmoid colon with microperforation. WBC on admission 14.5. H/O diverticulitis in the past that was managed with outpatient PO antibiotics. Patient reports that pain is improved since first reporting to ED. No indication for surgical intervention at this time. She will be admitted by hospitalist service for IV abx and pain management. Continue NPO status. I discussed with patient and significant other at bedside that I am hopeful that we will be able to manage her diverticulitis with conservative measures and avoid surgery. General Surgery will continue to follow. Patient and current treatment plan reviewed with Dr. Franks. History of Present Illness Reason for Consultation: Sigmoid diverticulitis with microperforation Attending Physician: Neal St History of Present Illness Fany is a 66-year-old female with past medical history significant for DM Type 2, asthma, IBS-C, diverticulosis, CKD Stage 3, and HTN. She states that she developed lower abdominal pain yesterday that continued to increase throughout the day and into the evening. She states that around 2AM, the pain became so bad that she decided to come to the ED. She does report nausea with 3 episodes of vomiting. Her last bowel movement was yesterday. She reports that she has a history of acute diverticulitis, but has not had a flare up in many years. She has never required hospitalization for it. Her most recent colonoscopy was 3 years ago with 10 year follow-up recommended. She reports that her only abdominal surgery was a D and C. In ED, CT of abdomen and pelvis was completed and overnight was read as "Mild sigmoid diverticulitis without evidence for perforation or abscess." CT was re- read in AM as "In addition to the previous findings, there are numerous small foci of intraperitoneal free air indicating visceral perforation. This is likely related to sigmoid diverticulitis. No organized fluid collection is seen to indicate abscess." WBC on admission was 14.5. Patient was admitted to Telemetry floor by hospitalist team for IV abx and pain management. Allergies Allergy/AdvReac Type Severity Reaction Status Date / Time bupropion Allergy Severe muscle Verified 08/28/21 16:07 pains and cramps codeine Allergy Intermediate GI Verified 08/28/21 16:07 INTOLERANCE erythromycin base Allergy Intermediate DIZZINESS Verified 08/28/21 16:07 levothyroxine Allergy Intermediate HIVES Verified 08/28/21 16:07 mold Allergy Intermediate CHEST Verified 08/28/21 16:07 CONGESTION prochlorperazine Allergy Intermediate restless Verified 08/28/21 16:07 house dust Allergy Unknown Unknown Verified 08/28/21 16:07 lisinopril Allergy Unknown Unknown Verified 08/28/21 16:07 metformin Allergy Unknown "METRFORMIN Verified 08/28/21 16:07 ALLERGY"?? milk AdvReac Intermediate GI DISTRESS Verified 08/28/21 16:07 paroxetine AdvReac Intermediate BAD DREAMS Verified 08/28/21 16:07 Home Medications Medication Instructions Recorded Confirmed Type sumatriptan succinate 50 mg tablet 50 mg PO Q2H PRN migraine headache 09/16/18 08/28/21 Rx #10 tabs sodium chloride 0.65 % nasal spray 1 sprays intranasal BID PRN 10/08/18 08/28/21 History aerosol ([place] Saline) Allergy Symptoms aspirin 81 mg tablet,delayed 81 mg PO QAM 01/11/19 08/28/21 History release cetirizine 10 mg tablet 10 mg PO QAM 01/11/19 08/28/21 History clonidine HCl 0.1 mg tablet 0.1 mg PO BID PRN hypertensive 01/11/19 08/28/21 History emergency guaifenesin 600 mg tablet, 600 mg PO QAM 01/11/19 08/28/21 History extended release 12 hr (Mucinex) sertraline 25 mg tablet 25 mg PO DAILY #90 tabs 07/01/19 08/28/21 Rx nebulizer accessories #1 ea 09/19/19 08/22/21 Rx trazodone 50 mg tablet 50 mg PO HS PRN insomnia #90 tabs 12/15/19 08/28/21 Rx pantoprazole 40 mg tablet,delayed 40 mg PO BID #180 tabs 01/02/20 08/28/21 Rx release flash glucose scanning reader #1 ea 12/06/20 08/28/21 Rx (FreeStyle G[place] 2 [place]) albuterol sulfate 90 mcg/actuation 2 puff inhalation QID PRN 12/26/20 08/28/21 Rx aerosol inhaler (Ventolin HFA) shortness of breath or wheezing #18 grams cholecalciferol (vitamin D3) 10 10 mcg PO DAILY 12/26/20 08/28/21 History mcg (400 unit) capsule cyanocobalamin (B12)-cobamamide 1 tab sublingual DAILY 12/26/20 08/28/21 History 5,000 mcg-100 mcg sublingual tablet (B-12 Plus) esomeprazole magnesium 20 mg 20 mg PO DAILY 12/26/20 08/28/21 History capsule,delayed release fluticasone furoate 100 1 inh inhalation DAILY PRN Allergy 12/26/20 08/28/21 Rx mcg-vilanterol 25 mcg/dose Symptoms #60 ea inhalation powder (Breo Ellipta) ipratropium 0.5 mg-albuterol 3 mg 3 ml inhalation TID PRN wheezing 12/26/20 08/28/21 Rx (2.5 mg base)/3 mL nebulization #4 mL soln losartan 100 mg tablet 100 mg PO DAILY 12/26/20 08/28/21 History amlodipine 5 mg tablet 5 mg PO QAM #90 tabs 02/21/21 08/28/21 Rx chlorthalidone 25 mg tablet 25 mg PO DAILY 05/08/21 08/28/21 History insulin lispro 100 unit/mL 70 unit continuous subcutaneous 05/08/21 08/28/21 History subcutaneous solution (Humalog infusion DAILY U-100 Insulin) montelukast 10 mg tablet 10 mg PO QAM 05/08/21 08/28/21 History dieunsagibcyf-XD-jwzpgmsluyisw-guaifen 2 tab PO DIRECTED PRN Cold 05/08/21 08/28/21 History 5 mg-10 mg-325 mg-200 mg tablet Symptoms flash glucose sensor (FreeStyle #3 ea 05/13/21 08/28/21 Rx Gagan 2 Sensor kit) miconazole nitrate 2 % vaginal vaginal 05/28/21 08/28/21 History cream (Monistat 7) Unithroid 88 mcg tablet 88 mcg PO QAM #90 tabs 06/17/21 08/28/21 Rx (levothyroxine) Omnipod Dash Pods (Gen 4) (insulin #15 ea 06/28/21 08/22/21 Rx pump cart,cont inf,BT) semaglutide 0.25 mg or 0.5 mg (2 0.5 mg (0.4 mL) subcut Q7D #1.5 mL 08/22/21 08/28/21 Rx mg/1.5 mL) subcutaneous pen injector (Dr Lal [employer]) rosuvastatin 5 mg tablet 5 mg PO DAILY #90 tabs 08/28/21 08/28/21 Rx Patient History Medical History Chronic bronchitis Chronic kidney disease, stage III (moderate) Colitis COPD, moderate Depression with anxiety Diabetic macular edema Diabetic nephropathy Dyslipidemia Esophageal reflux disease Headache, migraine History of cellulitis History of female infertility History of gastrointestinal hemorrhage History of herpes zoster History of in vitro fertilization History of leukocytosis Hypertension Hypothyroidism Internal hemorrhoids Microalbuminuria Osteopenia Right sided abdominal pain Statin intolerance Surgical History H/O dilation and curettage H/O sinus surgery History of in vitro fertilization History of incision and drainage Family History Mother Coronary arteriosclerosis Diabetes CHF (congestive heart failure) Sister Diabetes CHF (congestive heart failure) Cardiac arrest Father Macular degeneration Hypertension Stroke Suicide age 85 from self-inflicted gunshot wound Grandmother (Maternal) Breast cancer Social History (Updated 10/20/21 @ 13:[address]) Smoking Status: Never smoker Hx Alcohol Use: No Hx Substance Use: No Preferred Language: Iraqi Communication Ability: Effective Lead Ingot Molder Required: No Beliefs That Will Affect Care: None marital status: Current Living Situation: Spouse Current Living Situation Comment: lives near [place] 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 ); no nausea and no vomiting Physical Exam Constitutional: WD/WN, vitals as above no acute distress Respiratory: normal respiratory effort; no respiratory distress Gastrointestinal (Abdomen): Inspection/Auscultation: abdomen not distended Percussion/Palpation: + abdomen tender (tender in both left and right lower quadrants. ) and abdomen soft; no guarding and abdomen not rigid Psychiatric: A+Ox3, euthymic affect Results & Data ([facility]) Vital Signs (Past 12 Hours) Vital Signs Temp Pulse Pulse Resp BP BP Pulse Ox 10/20/21 16:00 90 14 126/64 90 10/20/21 14:00 90 16 122/80 90 10/20/21 12:20 94 H 16 122/80 90 10/20/21 11:00 90 10/20/21 10:34 36.4 C L 106 H 20 129/75 95 O2 Del Method 10/20/21 16:00 Room Air 10/20/21 14:00 10/20/21 12:20 Room Air 10/20/21 11:00 Room Air 10/20/21 10:34 Room Air PG Care Time/CCT Total # of Minutes Spent Total Time Spent with Patient: Total time spent is greater than 50% in coordination of care (as documented) at patient's floor/unit and/or counseling patient: Coding Level of Care Code 88954 Inpt Consult Level 2 Diagnoses Diverticulitis of colon with perforation K57.20
[2021-10-20] MEDS ORDERED: GLUCOSE 40% GEL 15 GM TUBE PO PRN (17:00)
[2021-10-20] MEDS ORDERED: CARBOHYDRATES FOR HYPOGLYCEMIA PO PRN (17:00)
[2021-10-20] MEDS ORDERED: INSULIN HUMAN LISPRO (humaLOG) 100 UNITS/ML VIAL SC PRN (17:00)
[2021-10-20] MEDS ORDERED: DEXTROSE 50% 50 ML SYRINGE IV PRN (17:00)
[2021-10-20] MEDS ORDERED: GLUCOSE 10 TAB/TUBE PO PRN (17:00)
[2021-10-20] MEDS ORDERED: GLUCAGON FOR INJ 1 MG VIAL SQ PRN (17:00)
[2021-10-20] MEDS: NSS + 20MEQ KCL 20 MEQ/1,000 ML BAG IV SCH (18:44)
[2021-10-20] MEDS: PIPERACILLIN/TAZOBACTAM 3.375 GM in DEXTROSE 5% 100 ML IV SCH (18:46)
[2021-10-20] MEDS: PANTOprazole 40 MG TAB PO SCH (21:09)
[2021-10-21] MEDS: traZODone HCL 50 MG TAB PO PRN ×2 (00:01→21:09)
[2021-10-21] MEDS: PIPERACILLIN/TAZOBACTAM 3.375 GM in DEXTROSE 5% 100 ML IV SCH ×3 (01:03→18:01)
[2021-10-21] MEDS: NSS + 20MEQ KCL 20 MEQ/1,000 ML BAG IV SCH ×3 (02:25→15:51)
[2021-10-21] MEDS: HYDROmorphone INJ 0.5 MG/0.5 ML SYR IV PRN ×2 (05:42→22:25)
[2021-10-21] MEDS: LEVOTHYROXINE SODIUM 88 MCG TABLET PO SCH ×2 (05:42→06:08)
[2021-10-21] MEDS ORDERED: CARBOHYDRATES FOR HYPOGLYCEMIA PO PRN (05:57)
[2021-10-21] MEDS ORDERED: GLUCOSE 10 TAB/TUBE PO PRN (05:57)
[2021-10-21] MEDS ORDERED: GLUCOSE 40% GEL 15 GM TUBE PO PRN (05:57)
[2021-10-21] MEDS ORDERED: DC ALL PREVIOUSLY ORDERED DIABETES MEDS ONE (05:57)
[2021-10-21] MEDS ORDERED: GLUCAGON FOR INJ 1 MG VIAL SQ PRN (05:57)
[2021-10-21] MEDS ORDERED: DEXTROSE 50% 50 ML SYRINGE IV PRN (05:57)
[2021-10-21] MEDS: INSULIN ASPART PER UNIT SC SCH ×4 (06:08→21:09)
[2021-10-21] MEDS ORDERED: Nursing to Pharmacy Communication SCH (06:15)
[2021-10-21 07:08] LABS: Basophils # (auto) 0.06 K/uL (0-0.2); Basophils % (auto) 0.4 %; Eosinophils # (auto) 0.05 K/uL (0-0.50); Eosinophils % (auto) 0.4 %; Hematocrit (blood only) 32.3 % (34.1-44.9); Hemoglobin 10.6 g/dl (12.0-16.0); Immature Granulocytes # (auto) 0.06 K/uL (0.00-0.02); Immature Granulocytes % (auto) 0.4 %; Lymphocytes # (auto) 1.34 K/uL (1.2-3.4); Lymphocytes % (auto) 9.7 %; Mean Corpuscular Hemoglobin 30.4 pg (25.0-34.0); Mean Corpuscular Hgb Conc 32.8 g/dL (32.0-36.0); Mean Corpuscular Volume 92.6 fL (80.0-100.0); Mean Platelet Volume 9.7 fL (9.4-12.3); Monocytes # (auto) 0.64 K/uL (0.24-0.82); Monocytes % (auto) 4.6 %; Neutrophils % (auto) 84.5 %; Platelet Count 216 K/uL (130-400); RDW Coefficient of Variation 12.7 % (11.5-14.5); RDW Standard Deviation 42.7 fL (36.4-46.3); Red Blood Count 3.49 M/uL (3.93-5.22); White Blood Count 13.85 K/ul (4.8-10.8)
[2021-10-21 07:30] LABS: BUN Creatinine Ratio 14.8 (10-20); Calcium 8.4 mg/dl (8.5-10.1); Creatinine Clr Calc Pharmacy 51.6 ml/min; Est GFR (African American) 62.8 ml/min; Est GFR (Non-African American) 54.2 ml/min; Potassium 3.5 mmol/L (3.5-5.1)
[2021-10-21] MEDS: PANTOprazole 40 MG TAB PO SCH ×2 (07:40→22:04)
[2021-10-21] MEDS: ADVANCED PROBIOTIC 1250 MG CAPSULE PO SCH (07:41)
[2021-10-21] MEDS: ENOXAPARIN INJ 40 MG/0.4 ML SYR SQ SCH (07:42)
[2021-10-21] MEDS: guaiFENesin 600 MG TABCR PO SCH (07:43)
[2021-10-21] MEDS: SERTRALINE HCL 50 MG TABLET PO SCH (07:43)
[2021-10-21] MEDS: FLUTICASONE/VILANTEROL 100/25MCG 14 PUFFS/INHALER INH SCH (07:43)
[2021-10-21] MEDS: ASPIRIN 81 MG ECTAB PO SCH (07:43)
[2021-10-21] MEDS: CETIRIZINE HCL 10 MG TABLET PO SCH (07:44)
[2021-10-21] MEDS: ROSUVASTATIN CALCIUM 5 MG TAB PO SCH (07:44)
[2021-10-21] MEDS: MONTELUKAST SODIUM 10 MG TABLET PO SCH (07:44)
--- NOTE | 2021-10-21 10:14 | Surgery Progress Note ---
Date of Service October 21, 2021 Assessment & Plan (1) Diverticulitis of colon with perforation: Plan: Continue conservative management. She can have a few ice chips but otherwise NPO. Continue IV antibiotics. We will continue to follow along closely. No urgent indication for surgical intervention at this time. (2) Controlled type 2 diabetes mellitus with kidney complication, with long-term current use of insulin: (3) Chronic kidney disease, stage III (moderate): Admission and Anticipated Discharge Date Admission Date: October 20, 2021 Subjective Patient seen. Continues to have left lower quadrant suprapubic pain. It is improved from Thursday however. No new complaints. Physical Exam Constitutional: WD/WN, vitals as above no acute distress and not ill appearing Eyes: PERRL, conjunctivae normal, anicteric sclerae EOM intact bilaterally ENMT: external ear and nose normal, oropharynx normal Ears: no hearing impairment Neck: trachea midline, no thyromegaly Respiratory: normal respiratory effort; no respiratory distress and does not use accessory muscles Cardiovascular: Rate/Rhythm: regular rate and regular rhythm Gastrointestinal (Abdomen): Soft. Positive left lower quadrant and suprapubic tenderness. No evidence of peritonitis. Skin: no rashes, warm and dry Psychiatric: Orientation: alert, oriented x 3 and cooperative Results [facility]) Vital Signs (Past 12 Hours) Vital Signs Temp Pulse Pulse Resp BP Pulse Ox O2 Del Method 10/21/21 08:00 86 10/21/21 08:00 36.9 C 88 20 112/60 93 10/21/21 04:04 36.7 C 90 18 125/76 91 Room Air 10/20/21 23:38 37.3 C 92 H 18 131/75 91 Room Air 10/20/21 23:40 93 H PG Care Time/CCT Total # of Minutes Spent Total Time Spent with Patient: Total time spent is greater than 50% in coordination of care (as documented) at patient's floor/unit and/or counseling patient: Coding Level of Care Code 58737 Inpt Consult Level 4 Diagnoses Diverticulitis of colon with perforation K57.20 Controlled type 2 diabetes mellitus with kidney complication, with long-term current use of insulin E11.29; Z79.4 Chronic kidney disease, stage III (moderate) N18.3
[2021-10-21] MEDS ORDERED: LANTUS PER UNIT CHARGE SQ ONE (12:45)
--- NOTE | 2021-10-21 12:51 | Pharmacy Report ---
Pharmacy Glycemic Short Note 2 - Date of Service October 21, 2021 - Glycemic Short BSG Results (Last 24 hours): 10/20/21 10/20/21 10/20/21 13:23 16:36 21:12 Glucose POC Glucose 171 H 169 H 124 H 10/21/21 10/21/21 10/21/21 05:47 06:57 07:37 Glucose 157 H POC Glucose 157 H 147 H 10/21/21 11:23 Glucose POC Glucose 196 H OUTPATIENT ANTIDIABETIC REGIMEN: * Humalog Omnipod insulin pump * Basal rate 39 units/day * CF: 25 mg/dL/unit * Nutritional/Prandial insulin ratio: 6 * Ozempic HbA1c: 7.8% (08/22/21) ASSESSMENT: * CM is a 66 year old female admitted on 10/20/21 with acute diverticulitis * Conservative management with IV antibiotics for now (patient NPO) * Pertinent PMH includes CKD, T2DM w/ complications * Patient uses insulin pump as outpatient and this was continued as an inpatient * Patient agreeable to holding insulin pump for now while NPO and using SC basal/bolus * Will start with ~50% of home basal since patient is NPO * May consider restarting insulin pump once tolerating diet PLAN FOR INPATIENT GLYCEMIC CONTROL: * Basal insulin * Lantus 20 units SC x 1 (~50% of home basal) * Bolus insulin - utilize home insulin pump parameters * NovoLog per scale q4h while NPO * Goal Range: Low 110 mg/dL - High 140 mg/dL * Correction Factor: 25 mg/dL/unit * Nutritional / Prandial insulin per carb ratio of 1 unit per 6 grams CHO consumed
--- NOTE | 2021-10-21 18:17 | Hospitalist Progress Note ---
Date of Service October 21, 2021 Assessment & Plan (1) Diverticulitis of colon with perforation: Plan: Still not quiescent; continue n.p.o. status, continue antibiotics (2) Controlled type 2 diabetes mellitus with kidney complication, with long-term current use of insulin: Plan: Pharmacy consult following; at present since subcutaneous insulin only via scale (3) Asthma: Plan: no exacerbation at this time. bronchodilators prn. cont breo 1 puff daily. (4) Insomnia: Plan: cont trazodone HS. (5) Esophageal reflux disease: Plan: continue pantoprazole BID. (6) Hypertension: Plan: in the setting of #1 above her BPs are normal or low-normal. thus, hold her amlodipine, losartan, and chlorthalidone for now. check mag level. follow BPs and restart some or all of her home meds if necessary. (7) Hypothyroidism: Plan: TSH was mildly suppressed in 08/2021. It does not appear based on records that her unithyroid dose was adjusted at that time. Cont current dose of 88mcg daily. (8) Dyslipidemia: Plan: cont statin agent - crestor 5mg daily LFTs wnl (9) Chronic kidney disease, stage III (moderate): Plan: stage 3a Follow (10) DVT prophylaxis: Plan: lovenox 40mg daily Admission and Anticipated Discharge Date Admission Date: October 20, 2021 Subjective Follow-up of lower abdominal painsomewhat better but still in pain Physical Exam Physical Exam: Constitutional and general: No acute distress, looks biologic age Head and face: No puffiness, atraumatic Eyes: No scleral icterus, extraocular movements normal Neck: Supple, no JVD Musculoskeletal: No acute joint swelling, no bony abnormalities Skin/dermatologic/integument: No rash, no purpura Hematologic and lymphatic: pallor +, no petechia Gastrointestinal/abdomen: Tender left lower quadrant Neurologic: Cranial nerves intact, nonfocal Psychiatry: Awake, alert, pleasant, communicative Cardiovascular: Heart rhythm regular, no rub, no murmur, no gallop Respiratory: Chest movements equal, no use of accessory muscles, no adventitious sounds Extremities: No edema, no cyanosis Results & Data Results & Data ([facility]) Vital Signs (Past 12 Hours) Vital Signs Temp Pulse Pulse Resp BP Pulse Ox O2 Del Method 10/21/21 16:30 93 H 10/21/21 14:58 37.1 C 88 19 132/77 92 Room Air 10/21/21 12:57 95 H 10/21/21 11:00 36.8 C 94 H 16 114/74 97 10/21/21 08:00 86 10/21/21 08:00 36.9 C 88 20 112/60 93 Laboratory Results Laboratory Results - last 24 hr 10/20/21 10/21/21 10/21/21 21:12 05:47 06:57 WBC 13.85 H RBC 3.49 L Hgb 10.6 L Hct 32.3 L MCV 92.6 MCH 30.4 MCHC 32.8 RDW Std Deviation 42.7 RDW Coeff of Mckay 12.7 Plt Count 216 MPV 9.7 Immature Gran % (Auto) 0.4 Neut % (Auto) 84.5 Lymph % (Auto) 9.7 [place] % (Auto) 4.6 Eos % (Auto) 0.4 Baso % (Auto) 0.4 Neut # (Auto) 11.70 H Lymph # (Auto) 1.34 [place] # (Auto) 0.64 Eos # (Auto) 0.05 Baso # (Auto) 0.06 Immature Gran # (Auto) 0.06 H Sodium Potassium Chloride Carbon Dioxide Anion Gap BUN Creatinine Est Cr Clr Drug Dosing Est GFR ( Amer) Est GFR (Non-Af Amer) BUN/Creatinine Ratio Glucose POC Glucose 124 H 157 H Calcium Hepatitis C Ab (EIA) Hep C Ab Signal/Cutoff 10/21/21 10/21/21 10/21/21 06:57 06:57 07:37 WBC RBC Hgb Hct MCV MCH MCHC RDW Std Deviation RDW Coeff of Mckay Plt Count MPV Immature Gran % (Auto) Neut % (Auto) Lymph % (Auto) [place] % (Auto) Eos % (Auto) Baso % (Auto) Neut # (Auto) Lymph # (Auto) [place] # (Auto) Eos # (Auto) Baso # (Auto) Immature Gran # (Auto) Sodium 136 Potassium 3.5 Chloride 101 Carbon Dioxide 29 Anion Gap 6 BUN 16 Creatinine 1.08 Est Cr Clr Drug Dosing 51.6 Est GFR ( Amer) 62.8 Est GFR (Non-Af Amer) 54.2 BUN/Creatinine Ratio 14.8 Glucose 157 H POC Glucose 147 H Calcium 8.4 L Hepatitis C Ab (EIA) Pending Hep C Ab Signal/Cutoff Pending 10/21/21 10/21/21 11:23 16:39 WBC RBC Hgb Hct MCV MCH MCHC RDW Std Deviation RDW Coeff of Mckay Plt Count MPV Immature Gran % (Auto) Neut % (Auto) Lymph % (Auto) [place] % (Auto) Eos % (Auto) Baso % (Auto) Neut # (Auto) Lymph # (Auto) [place] # (Auto) Eos # (Auto) Baso # (Auto) Immature Gran # (Auto) Sodium Potassium Chloride Carbon Dioxide Anion Gap BUN Creatinine Est Cr Clr Drug Dosing Est GFR ( Amer) Est GFR (Non-Af Amer) BUN/Creatinine Ratio Glucose POC Glucose 196 H 154 H Calcium Hepatitis C Ab (EIA) Hep C Ab Signal/Cutoff PG Care Time/CCT Total # of Minutes Spent Total Time Spent with Patient: Total time spent is greater than 50% in coordination of care (as documented) at patient's floor/unit and/or counseling patient: Coding Level of Care Code 02633 Subseq Hosp Care Lvl 2 Diagnoses Diverticulitis of colon with perforation K57.20 Controlled type 2 diabetes mellitus with kidney complication, with long-term current use of insulin E11.29; Z79.4 Asthma J45.909 Insomnia G47.00 Esophageal reflux disease K21.9 Hypertension I10 Hypothyroidism E03.9 Dyslipidemia E78.5 Chronic kidney disease, stage III (moderate) N18.3 DVT prophylaxis Z29.9
[2021-10-22] MEDS: NSS + 20MEQ KCL 20 MEQ/1,000 ML BAG IV SCH ×2 (00:37→17:34)
[2021-10-22] MEDS: INSULIN ASPART PER UNIT SC SCH ×6 (01:07→20:50)
[2021-10-22] MEDS: PIPERACILLIN/TAZOBACTAM 3.375 GM in DEXTROSE 5% 100 ML IV SCH ×3 (01:54→17:41)
[2021-10-22 06:16] LABS: Basophils # (auto) 0.04 K/uL (0-0.2); Basophils % (auto) 0.4 %; Eosinophils # (auto) 0.18 K/uL (0-0.50); Eosinophils % (auto) 1.6 %; Hematocrit (blood only) 31.5 % (34.1-44.9); Hemoglobin 10.3 g/dl (12.0-16.0); Immature Granulocytes # (auto) 0.04 K/uL (0.00-0.02); Immature Granulocytes % (auto) 0.4 %; Lymphocytes # (auto) 1.32 K/uL (1.2-3.4); Lymphocytes % (auto) 11.8 %; Mean Corpuscular Hemoglobin 30.1 pg (25.0-34.0); Mean Corpuscular Hgb Conc 32.7 g/dL (32.0-36.0); Mean Corpuscular Volume 92.1 fL (80.0-100.0); Mean Platelet Volume 9.9 fL (9.4-12.3); Monocytes # (auto) 0.54 K/uL (0.24-0.82); Monocytes % (auto) 4.8 %; Platelet Count 216 K/uL (130-400); RDW Coefficient of Variation 12.7 % (11.5-14.5); RDW Standard Deviation 42.7 fL (36.4-46.3); Red Blood Count 3.42 M/uL (3.93-5.22); White Blood Count 11.22 K/ul (4.8-10.8)
[2021-10-22 06:39] LABS: Albumin Globulin Ratio 1.2 (0.9-2); Albumin Level 3.3 gm/dl (3.4-5.0); Bilirubin,Total 0.6 mg/dl (0.2-1.0); Calcium 8.4 mg/dl (8.5-10.1); Creatinine Clr Calc Pharmacy 60.6 ml/min; Est GFR (African American) 76.3 ml/min; Est GFR (Non-African American) 65.8 ml/min; Globulin 2.7 gm/dl (2.5-4.0); Magnesium 1.9 mg/dl (1.7-2.4); Phosphorus 1.6 mg/dl (2.5-4.9); Potassium 4.1 mmol/L (3.5-5.1)
[2021-10-22] MEDS ORDERED: LANTUS PER UNIT CHARGE SQ ONE (08:00)
--- NOTE | 2021-10-22 08:49 | Surgery Progress Note ---
Date of Service October 22, 2021 Assessment & Plan (1) Diverticulitis of colon with perforation: Plan: Clinically improved. WBC slowly decreasing. Afebrile. We will initiate some clear liquids and see how she tolerates these. No indication for urgent surgical intervention at this time. We will continue to follow along closely. (2) Controlled type 2 diabetes mellitus with kidney complication, with long-term current use of insulin: Admission and Anticipated Discharge Date Admission Date: October 20, 2021 Subjective Patient seen. Feeling much better than when she came in. Pain much improved. Physical Exam Constitutional: WD/WN, vitals as above no acute distress and not ill appearing Eyes: PERRL, conjunctivae normal, anicteric sclerae EOM intact bilaterally ENMT: external ear and nose normal, oropharynx normal Ears: no hearing impairment Neck: trachea midline, no thyromegaly Respiratory: normal respiratory effort; no respiratory distress and does not use accessory muscles Cardiovascular: Rate/Rhythm: regular rate and regular rhythm Gastrointestinal (Abdomen): Soft. Mild suprapubic tenderness as well as left lower quadrant tenderness. Much improved from yesterday Skin: no rashes, warm and dry Psychiatric: Orientation: alert, oriented x 3 and cooperative Results & Data ([facility]) Vital Signs (Past 12 Hours) Vital Signs Temp Pulse Resp BP Pulse Ox O2 Del Method O2 Flow Rate 10/22/21 07:34 37.2 C 85 18 126/81 92 Nasal Cannula 2 10/22/21 04:22 37.0 C 87 18 135/75 93 Nasal Cannula 2.0 10/21/21 23:01 36.8 C 89 16 135/75 89 L Room Air PG Care Time/CCT Total # of Minutes Spent Total Time Spent with Patient: Total time spent is greater than 50% in coordination of care (as documented) at patient's floor/unit and/or counseling patient: Coding Level of Care Code 52064 Subseq Hosp Care Lvl 3 Diagnoses Diverticulitis of colon with perforation K57.20 Controlled type 2 diabetes mellitus with kidney complication, with long-term current use of insulin E11.29; Z79.4
[2021-10-22] MEDS ORDERED: SODIUM PHOSPHATE 3 MMOL/1 ML INFUSION IV STA (09:19)
[2021-10-22] MEDS: PANTOprazole 40 MG TAB PO SCH ×2 (09:54→20:43)
[2021-10-22] MEDS: FLUTICASONE/VILANTEROL 100/25MCG 14 PUFFS/INHALER INH SCH (09:54)
[2021-10-22] MEDS ORDERED: SODIUM PHOSPHATE 30 MMOL in SODIUM CHLORIDE 0.9% 500 ML IV ONE (10:00)
[2021-10-22] MEDS: SODIUM CHLORIDE 0.9% 1000ML 1,000 ML IV SCH ×2 (11:13→22:18)
[2021-10-22] MEDS: CETIRIZINE HCL 10 MG TABLET PO SCH (11:58)
[2021-10-22] MEDS: MONTELUKAST SODIUM 10 MG TABLET PO SCH (11:58)
[2021-10-22] MEDS: ADVANCED PROBIOTIC 1250 MG CAPSULE PO SCH (11:58)
[2021-10-22] MEDS: ASPIRIN 81 MG ECTAB PO SCH (11:58)
[2021-10-22] MEDS: ENOXAPARIN INJ 40 MG/0.4 ML SYR SQ SCH (11:58)
[2021-10-22] MEDS: guaiFENesin 600 MG TABCR PO SCH (11:58)
[2021-10-22] MEDS: SERTRALINE HCL 50 MG TABLET PO SCH (14:46)
[2021-10-22] MEDS: ROSUVASTATIN CALCIUM 5 MG TAB PO SCH (14:46)
[2021-10-22] MEDS: ACETAMINOPHEN 325 MG TAB PO PRN (17:04)
--- NOTE | 2021-10-22 17:33 | Hospitalist Progress Note ---
Date of Service October 22, 2021 Assessment & Plan (1) Diverticulitis of colon with perforation: Plan: Better, noted initiation of clear liquids, surgery following; will defer; cut back IV fluids (2) Controlled type 2 diabetes mellitus with kidney complication, with long-term current use of insulin: Plan: Pharmacy consult following; at present since subcutaneous insulin only via scale (3) Asthma: Plan: no exacerbation at this time. bronchodilators prn. cont breo 1 puff daily. (4) Insomnia: Plan: cont trazodone HS. (5) Esophageal reflux disease: Plan: continue pantoprazole BID. (6) Hypertension: Plan: in the setting of #1 above her BPs are normal thus, hold her amlodipine, losartan, and chlorthalidone for now. follow BPs and restart some or all of her home meds if necessary. (7) Hypothyroidism: Plan: TSH was mildly suppressed in 08/2021. It does not appear based on records that her unithyroid dose was adjusted at that time. Cont current dose of 88mcg daily. (8) Dyslipidemia: Plan: cont statin agent - crestor 5mg daily LFTs wnl Plan Hypophosphatemiareplace Anemiafollow; likely inflammatory, no clinical bleeding reported Admission and Anticipated Discharge Date Admission Date: October 20, 2021 Subjective Follow-up of presentation with abdominal paindoing better Physical Exam Physical Exam: Constitutional and general: No acute distress, looks biologic age Head and face: No puffiness, atraumatic Eyes: No scleral icterus, extraocular movements normal Neck: Supple, no JVD Musculoskeletal: No acute joint swelling, no bony abnormalities Skin/dermatologic/integument: No rash, no purpura Hematologic and lymphatic: pallor +, no petechia Gastrointestinal/abdomen: No significant tenderness Neurologic: Cranial nerves intact, nonfocal Psychiatry: Awake, alert, pleasant, communicative Cardiovascular: Heart rhythm regular, no rub, no murmur, no gallop Respiratory: Chest movements equal, no use of accessory muscles, no adventitious sounds Extremities: No edema, no cyanosis Results & Data Results & Data ([facility]) Vital Signs (Past 12 Hours) Vital Signs Temp Pulse Pulse Resp BP Pulse Ox O2 Del Method 10/22/21 16:00 78 10/22/21 14:50 36.9 C 82 18 133/69 92 Room Air 10/22/21 11:45 37.2 C 83 19 136/78 91 Room Air 10/22/21 08:00 82 10/22/21 07:34 37.2 C 85 18 126/81 92 Nasal Cannula O2 Flow Rate 10/22/21 16:00 10/22/21 14:50 10/22/21 11:45 10/22/21 08:00 10/22/21 07:34 2 Laboratory Results Laboratory Results - last 24 hr 10/21/21 10/21/21 10/22/21 06:57 20:42 00:41 WBC RBC Hgb Hct MCV MCH MCHC RDW Std Deviation RDW Coeff of Mckay Plt Count MPV Immature Gran % (Auto) Neut % (Auto) Lymph % (Auto) [place] % (Auto) Eos % (Auto) Baso % (Auto) Neut # (Auto) Lymph # (Auto) [place] # (Auto) Eos # (Auto) Baso # (Auto) Immature Gran # (Auto) Sodium Potassium Chloride Carbon Dioxide Anion Gap BUN Creatinine Est Cr Clr Drug Dosing Est GFR ( Amer) Est GFR (Non-Af Amer) POC Glucose 161 H 130 H Fasting Glucose Calcium Phosphorus Magnesium Total Bilirubin AST ALT Alkaline Phosphatase Total Protein Albumin Globulin Albumin/Globulin Ratio Hepatitis C Ab (EIA) NON-REACTIVE Hep C Ab Signal/Cutoff 0.05 10/22/21 10/22/21 10/22/21 04:04 05:51 05:51 WBC 11.22 H RBC 3.42 L Hgb 10.3 L Hct 31.5 L MCV 92.1 MCH 30.1 MCHC 32.7 RDW Std Deviation 42.7 RDW Coeff of Mckay 12.7 Plt Count 216 MPV 9.9 Immature Gran % (Auto) 0.4 Neut % (Auto) 81.0 Lymph % (Auto) 11.8 [place] % (Auto) 4.8 Eos % (Auto) 1.6 Baso % (Auto) 0.4 Neut # (Auto) 9.10 H Lymph # (Auto) 1.32 [place] # (Auto) 0.54 Eos # (Auto) 0.18 Baso # (Auto) 0.04 Immature Gran # (Auto) 0.04 H Sodium 137 Potassium 4.1 Chloride 105 Carbon Dioxide 26 Anion Gap 6 BUN 12 Creatinine 0.92 Est Cr Clr Drug Dosing 60.6 Est GFR ( Amer) 76.3 Est GFR (Non-Af Amer) 65.8 POC Glucose 145 H Fasting Glucose 149 H Calcium 8.4 L Phosphorus 1.6 L Magnesium 1.9 Total Bilirubin 0.6 AST 10 L ALT 8 Alkaline Phosphatase 43 Total Protein 6.0 Albumin 3.3 L Globulin 2.7 Albumin/Globulin Ratio 1.2 Hepatitis C Ab (EIA) Hep C Ab Signal/Cutoff 10/22/21 10/22/21 10/22/21 07:33 11:44 16:44 WBC RBC Hgb Hct MCV MCH MCHC RDW Std Deviation RDW Coeff of Mckay Plt Count MPV Immature Gran % (Auto) Neut % (Auto) Lymph % (Auto) [place] % (Auto) Eos % (Auto) Baso % (Auto) Neut # (Auto) Lymph # (Auto) [place] # (Auto) Eos # (Auto) Baso # (Auto) Immature Gran # (Auto) Sodium Potassium Chloride Carbon Dioxide Anion Gap BUN Creatinine Est Cr Clr Drug Dosing Est GFR ( Amer) Est GFR (Non-Af Amer) POC Glucose 146 H 193 H 175 H Fasting Glucose Calcium Phosphorus Magnesium Total Bilirubin AST ALT Alkaline Phosphatase Total Protein Albumin Globulin Albumin/Globulin Ratio Hepatitis C Ab (EIA) Hep C Ab Signal/Cutoff PG Care Time/CCT Total # of Minutes Spent Total Time Spent with Patient: Total time spent is greater than 50% in coordination of care (as documented) at patient's floor/unit and/or counseling patient: Coding Level of Care Code 33538 Subseq Hosp Care Lvl 2 Diagnoses Diverticulitis of colon with perforation K57.20 Controlled type 2 diabetes mellitus with kidney complication, with long-term current use of insulin E11.29; Z79.4 Asthma J45.909 Insomnia G47.00 Esophageal reflux disease K21.9 Hypertension I10 Hypothyroidism E03.9 Dyslipidemia E78.5
[2021-10-22] MEDS: traZODone HCL 50 MG TAB PO PRN (22:15)
[2021-10-23] MEDS: INSULIN ASPART PER UNIT SC SCH ×7 (00:27→23:35)
[2021-10-23] MEDS: ACETAMINOPHEN 325 MG TAB PO PRN ×3 (03:01→23:42)
[2021-10-23] MEDS: PIPERACILLIN/TAZOBACTAM 3.375 GM in DEXTROSE 5% 100 ML IV SCH ×3 (03:02→20:16)
[2021-10-23 06:41] LABS: Basophils # (auto) 0.05 K/uL (0-0.2); Basophils % (auto) 0.6 %; Eosinophils # (auto) 0.36 K/uL (0-0.50); Eosinophils % (auto) 4.5 %; Hematocrit (blood only) 30.5 % (34.1-44.9); Immature Granulocytes # (auto) 0.03 K/uL (0.00-0.02); Immature Granulocytes % (auto) 0.4 %; Lymphocytes # (auto) 1.17 K/uL (1.2-3.4); Lymphocytes % (auto) 14.8 %; Mean Corpuscular Hgb Conc 32.8 g/dL (32.0-36.0); Mean Corpuscular Volume 91.6 fL (80.0-100.0); Mean Platelet Volume 10.2 fL (9.4-12.3); Monocytes # (auto) 0.52 K/uL (0.24-0.82); Monocytes % (auto) 6.6 %; Neutrophils % (auto) 73.1 %; Platelet Count 226 K/uL (130-400); RDW Coefficient of Variation 12.3 % (11.5-14.5); RDW Standard Deviation 41.1 fL (36.4-46.3); Red Blood Count 3.33 M/uL (3.93-5.22); White Blood Count 7.93 K/ul (4.8-10.8)
[2021-10-23 07:50] LABS: Albumin Globulin Ratio 1.2 (0.9-2); Albumin Level 3.4 gm/dl (3.4-5.0); Bilirubin,Total 0.5 mg/dl (0.2-1.0); Calcium 8.4 mg/dl (8.5-10.1); Creatinine Clr Calc Pharmacy 66.9 ml/min; Est GFR (African American) 85.1 ml/min; Est GFR (Non-African American) 73.4 ml/min; Globulin 2.9 gm/dl (2.5-4.0); Magnesium 1.7 mg/dl (1.7-2.4); Phosphorus 1.8 mg/dl (2.5-4.9); Potassium 3.2 mmol/L (3.5-5.1); Total Protein 6.3 gm/dl (6.0-8.3)
[2021-10-23] MEDS: MONTELUKAST SODIUM 10 MG TABLET PO SCH (08:08)
[2021-10-23] MEDS: PANTOprazole 40 MG TAB PO SCH ×2 (08:08→20:16)
[2021-10-23] MEDS: ASPIRIN 81 MG ECTAB PO SCH (08:09)
[2021-10-23] MEDS: ADVANCED PROBIOTIC 1250 MG CAPSULE PO SCH (08:09)
[2021-10-23] MEDS: guaiFENesin 600 MG TABCR PO SCH (08:09)
[2021-10-23] MEDS: SERTRALINE HCL 50 MG TABLET PO SCH (08:09)
[2021-10-23] MEDS: FLUTICASONE/VILANTEROL 100/25MCG 14 PUFFS/INHALER INH SCH (08:09)
[2021-10-23] MEDS: ROSUVASTATIN CALCIUM 5 MG TAB PO SCH (08:09)
[2021-10-23] MEDS: ENOXAPARIN INJ 40 MG/0.4 ML SYR SQ SCH (08:09)
[2021-10-23] MEDS: CETIRIZINE HCL 10 MG TABLET PO SCH (08:09)
[2021-10-23] MEDS ORDERED: LANTUS PER UNIT CHARGE SQ ONE (09:00)
[2021-10-23] MEDS ORDERED: POTASSIUM PHOS 3 MMOL/1 ML INFUSION IV STA (09:09)
[2021-10-23] MEDS ORDERED: LOSARTAN POTASSIUM 50 MG TAB PO SCH (10:00)
[2021-10-23] MEDS ORDERED: POTASSIUM PHOSPHATE 30 MMOL in SODIUM CHLORIDE 0.9% 500 ML IV ONE (10:00)
[2021-10-23] MEDS: amLODIPine BESYLATE 5 MG TAB PO SCH (10:11)
--- NOTE | 2021-10-23 10:45 | Surgery Progress Note ---
Date of Service October 23, 2021 Assessment & Plan (1) Diverticulitis of colon with perforation: Plan: doing well will advance to full liquids potential for d/c tomorrow. no surgical intervention currently indicated. (2) Controlled type 2 diabetes mellitus with kidney complication, with long-term current use of insulin: (3) Chronic kidney disease, stage III (moderate): Admission and Anticipated Discharge Date Admission Date: October 20, 2021 Subjective feeling better each day. some discomfort laying on her stomach but otherwise well. judd clears without issue. Physical Exam Constitutional: WD/WN, vitals as above no acute distress and not ill appearing Eyes: PERRL, conjunctivae normal, anicteric sclerae EOM intact bilaterally ENMT: external ear and nose normal, oropharynx normal Ears: no hearing impairment Neck: trachea midline, no thyromegaly Respiratory: normal respiratory effort; no respiratory distress and does not use accessory muscles Cardiovascular: Rate/Rhythm: regular rate and regular rhythm Gastrointestinal (Abdomen): soft. mild suprapubic ttp. much improved. no g/r/r Skin: no rashes, warm and dry Psychiatric: Orientation: alert, oriented x 3 and cooperative Results & Data ([facility]) Vital Signs (Past 12 Hours) Vital Signs Temp Pulse Pulse Resp BP Pulse Ox O2 Del Method 10/23/21 08:00 86 10/23/21 07:34 36.8 C 73 18 145/80 H 91 Room Air 10/23/21 03:08 37.2 C 84 18 152/75 H 91 10/22/21 22:56 36.4 C L 85 18 148/76 H 93 Room Air PG Care Time/CCT Total # of Minutes Spent Total Time Spent with Patient: Total time spent is greater than 50% in coordination of care (as documented) at patient's floor/unit and/or counseling patient: Coding Level of Care Code 65261 Subseq Hosp Care Lvl 2 Diagnoses Diverticulitis of colon with perforation K57.20 Controlled type 2 diabetes mellitus with kidney complication, with long-term current use of insulin E11.29; Z79.4 Chronic kidney disease, stage III (moderate) N18.3
--- NOTE | 2021-10-23 12:27 | Pharmacy Report ---
Pharmacy Glycemic Short Note 2 - Date of Service October 23, 2021 - Glycemic Short BSG Results (Last 24 hours): 10/22/21 10/22/21 10/23/21 16:44 20:44 00:25 POC Glucose 175 H 164 H 117 H Fasting Glucose 10/23/21 10/23/21 10/23/21 03:10 05:45 07:58 POC Glucose 126 H 139 H Fasting Glucose 135 H 10/23/21 11:47 POC Glucose 174 H Fasting Glucose OUTPATIENT ANTIDIABETIC REGIMEN: * Humalog Omnipod insulin pump * Basal rate 39 units/day * CF: 25 mg/dL/unit * Nutritional/Prandial insulin ratio: 6 * Ozempic HbA1c: 7.8% (08/22/21) ASSESSMENT: 10/23/21 * Patient's BSGs yesterday were [phone] mg/dL and overnight were 117-126 mg/dl. Patient was NPO for half the day and then changed to clears. * Patient received 26 units of insulin (Lantus 20 units plus 6 units of corre ctional). * Fasting today is 130 mg/dL. Patient remained on clears for the morning. * Reduced Lantus by 20% since fasting trending down. BSGs may be slightly higher as patient changed to full liquid diet with lunch. Continue Novolog. Background * CM is a 66 year old female admitted on 10/20/21 with acute diverticulitis * Conservative management with IV antibiotics for now (patient NPO) * Pertinent PMH includes CKD, T2DM w/ complications * Patient uses insulin pump as outpatient and this was continued as an inpatient * Patient agreeable to holding insulin pump for now while NPO and using SC basal/bolus * Will start with ~50% of home basal since patient is NPO * May consider restarting insulin pump once tolerating diet PLAN FOR INPATIENT GLYCEMIC CONTROL: * Basal insulin * Lantus 15 units SQ x 1 * Bolus insulin - utilize home insulin pump parameters * NovoLog per scale q4h while NPO * Goal Range: Low 110 mg/dL - High 140 mg/dL * Correction Factor: 25 mg/dL/unit * Nutritional / Prandial insulin per carb ratio of 1 unit per 6 grams CHO consumed
--- NOTE | 2021-10-23 16:03 | Hospitalist Progress Note ---
Date of Service October 23, 2021 Assessment & Plan (1) Diverticulitis of colon with perforation: Plan: Conservative management; continue antibiotics; noted advancement of diet to full liquids; stop IV fluid (2) Controlled type 2 diabetes mellitus with kidney complication, with long-term current use of insulin: Plan: Sugars reasonableno change, pharmacy following (3) Asthma: Plan: Nonacute problemfollow clinically (4) Esophageal reflux disease: Plan: Continue PPI (5) Hypertension: Plan: BP drifting upslowly resume agents (6) Hypothyroidism: Plan: She only takes 1 particular brand nameresume at discharge (7) Dyslipidemia: Plan: Continue statin Plan Follow anemia Hypokalemia and hypophosphatemiareplace Admission and Anticipated Discharge Date Admission Date: October 20, 2021 Subjective Follow-up of original presentation with abdominal painoverall doing better since admission but did have some abdominal discomfort with knotting like sensation Physical Exam Physical Exam: Constitutional and general: No acute distress, looks biologic age Head and face: No puffiness, atraumatic Eyes: No scleral icterus, extraocular movements normal Neck: Supple, no JVD Musculoskeletal: No acute joint swelling, no bony abnormalities Skin/dermatologic/integument: No rash, no purpura Hematologic and lymphatic: pallor +, no petechia Gastrointestinal/abdomen: distended, nonperitoneal Neurologic: Cranial nerves intact, nonfocal Psychiatry: Awake, alert, pleasant, communicative Cardiovascular: Heart rhythm regular, no rub, no murmur, no gallop Respiratory: Chest movements equal, no use of accessory muscles, no adventitious sounds Extremities: No edema, no cyanosis Results & Data Results & Data ([facility]) Vital Signs (Past 12 Hours) Vital Signs Temp Pulse Pulse Resp BP Pulse Ox O2 Del Method 10/23/21 14:53 36.8 C 84 18 145/80 H 91 Room Air 10/23/21 11:31 36.7 C 76 18 159/88 H 91 Room Air 10/23/21 08:00 86 10/23/21 07:34 36.8 C 73 18 145/80 H 91 Room Air Laboratory Results Laboratory Results - last 24 hr 10/22/21 10/22/21 10/23/21 16:44 20:44 00:25 WBC RBC Hgb Hct MCV MCH MCHC RDW Std Deviation RDW Coeff of Mckay Plt Count MPV Immature Gran % (Auto) Neut % (Auto) Lymph % (Auto) [place] % (Auto) Eos % (Auto) Baso % (Auto) Neut # (Auto) Lymph # (Auto) [place] # (Auto) Eos # (Auto) Baso # (Auto) Immature Gran # (Auto) Sodium Potassium Chloride Carbon Dioxide Anion Gap BUN Creatinine Est Cr Clr Drug Dosing Est GFR ( Amer) Est GFR (Non-Af Amer) POC Glucose 175 H 164 H 117 H Fasting Glucose Calcium Phosphorus Magnesium Total Bilirubin AST ALT Alkaline Phosphatase Total Protein Albumin Globulin Albumin/Globulin Ratio 10/23/21 10/23/21 10/23/21 03:10 05:45 05:45 WBC 7.93 RBC 3.33 L Hgb 10.0 L Hct 30.5 L MCV 91.6 MCH 30.0 MCHC 32.8 RDW Std Deviation 41.1 RDW Coeff of Mckay 12.3 Plt Count 226 MPV 10.2 Immature Gran % (Auto) 0.4 Neut % (Auto) 73.1 Lymph % (Auto) 14.8 [place] % (Auto) 6.6 Eos % (Auto) 4.5 Baso % (Auto) 0.6 Neut # (Auto) 5.80 Lymph # (Auto) 1.17 L [place] # (Auto) 0.52 Eos # (Auto) 0.36 Baso # (Auto) 0.05 Immature Gran # (Auto) 0.03 H Sodium 138 Potassium 3.2 L D Chloride 104 Carbon Dioxide 26 Anion Gap 8 BUN 7 Creatinine 0.84 Est Cr Clr Drug Dosing 66.9 Est GFR ( Amer) 85.1 Est GFR (Non-Af Amer) 73.4 POC Glucose 126 H Fasting Glucose 135 H Calcium 8.4 L Phosphorus 1.8 L Magnesium 1.7 Total Bilirubin 0.5 AST 12 L ALT 9 Alkaline Phosphatase 43 Total Protein 6.3 Albumin 3.4 Globulin 2.9 Albumin/Globulin Ratio 1.2 10/23/21 10/23/21 07:58 11:47 WBC RBC Hgb Hct MCV MCH MCHC RDW Std Deviation RDW Coeff of Mckay Plt Count MPV Immature Gran % (Auto) Neut % (Auto) Lymph % (Auto) [place] % (Auto) Eos % (Auto) Baso % (Auto) Neut # (Auto) Lymph # (Auto) [place] # (Auto) Eos # (Auto) Baso # (Auto) Immature Gran # (Auto) Sodium Potassium Chloride Carbon Dioxide Anion Gap BUN Creatinine Est Cr Clr Drug Dosing Est GFR ( Amer) Est GFR (Non-Af Amer) POC Glucose 139 H 174 H Fasting Glucose Calcium Phosphorus Magnesium Total Bilirubin AST ALT Alkaline Phosphatase Total Protein Albumin Globulin Albumin/Globulin Ratio PG Care Time/CCT Total # of Minutes Spent Total Time Spent with Patient: Total time spent is greater than 50% in coordination of care (as documented) at patient's floor/unit and/or counseling patient: Coding Level of Care Code 97177 Subseq Hosp Care Lvl 2 Diagnoses Diverticulitis of colon with perforation K57.20 Controlled type 2 diabetes mellitus with kidney complication, with long-term current use of insulin E11.29; Z79.4 Asthma J45.909 Esophageal reflux disease K21.9 Hypertension I10 Hypothyroidism E03.9 Dyslipidemia E78.5
[2021-10-23] MEDS: traZODone HCL 50 MG TAB PO PRN (23:42)
[2021-10-24] MEDS: PIPERACILLIN/TAZOBACTAM 3.375 GM in DEXTROSE 5% 100 ML IV SCH ×2 (03:41→09:59)
[2021-10-24] MEDS: INSULIN ASPART PER UNIT SC SCH ×3 (03:42→12:09)
[2021-10-24 04:27] VITALS: O2SAT 91
[2021-10-24 05:09] LABS: Basophils # (auto) 0.04 K/uL (0-0.2); Basophils % (auto) 0.6 %; Eosinophils # (auto) 0.47 K/uL (0-0.50); Eosinophils % (auto) 7.2 %; Hematocrit (blood only) 29.4 % (34.1-44.9); Hemoglobin 9.8 g/dl (12.0-16.0); Immature Granulocytes # (auto) 0.02 K/uL (0.00-0.02); Immature Granulocytes % (auto) 0.3 %; Lymphocytes # (auto) 1.38 K/uL (1.2-3.4); Lymphocytes % (auto) 21.2 %; Mean Corpuscular Hemoglobin 30.2 pg (25.0-34.0); Mean Corpuscular Hgb Conc 33.3 g/dL (32.0-36.0); Mean Corpuscular Volume 90.7 fL (80.0-100.0); Mean Platelet Volume 9.9 fL (9.4-12.3); Monocytes # (auto) 0.67 K/uL (0.24-0.82); Monocytes % (auto) 10.3 %; Neutrophils # (auto) 3.92 K/uL (1.4-6.5); Neutrophils % (auto) 60.4 %; Platelet Count 240 K/uL (130-400); RDW Coefficient of Variation 12.1 % (11.5-14.5); RDW Standard Deviation 40.8 fL (36.4-46.3); Red Blood Count 3.24 M/uL (3.93-5.22)
[2021-10-24 05:37] LABS: Albumin Globulin Ratio 1.3 (0.9-2); Albumin Level 3.2 gm/dl (3.4-5.0); Bilirubin,Total 0.3 mg/dl (0.2-1.0); Calcium 8.4 mg/dl (8.5-10.1); Creatinine Clr Calc Pharmacy 67.5 ml/min; Est GFR (African American) 86.4 ml/min; Est GFR (Non-African American) 74.5 ml/min; Globulin 2.5 gm/dl (2.5-4.0); Magnesium 1.6 mg/dl (1.7-2.4); Phosphorus 2.6 mg/dl (2.5-4.9); Potassium 3.2 mmol/L (3.5-5.1); Total Protein 5.7 gm/dl (6.0-8.3)
[2021-10-24] MEDS ORDERED: POTASSIUM CHLORIDE CRTAB 20 MEQ TABCR PO STA (07:29)
[2021-10-24] MEDS: MAGNESIUM SULFATE / D5W 1 GM/100 ML BAG IV SCH ×3 (07:37→11:21)
[2021-10-24] MEDS: SERTRALINE HCL 50 MG TABLET PO SCH (07:39)
[2021-10-24] MEDS: PANTOprazole 40 MG TAB PO SCH (07:39)
[2021-10-24] MEDS: ASPIRIN 81 MG ECTAB PO SCH (07:39)
[2021-10-24] MEDS: guaiFENesin 600 MG TABCR PO SCH (07:40)
[2021-10-24] MEDS: amLODIPine BESYLATE 5 MG TAB PO SCH (07:40)
[2021-10-24] MEDS: ADVANCED PROBIOTIC 1250 MG CAPSULE PO SCH (07:40)
[2021-10-24] MEDS: CETIRIZINE HCL 10 MG TABLET PO SCH (07:40)
[2021-10-24] MEDS: MONTELUKAST SODIUM 10 MG TABLET PO SCH (07:40)
[2021-10-24] MEDS: ROSUVASTATIN CALCIUM 5 MG TAB PO SCH (07:40)
[2021-10-24] MEDS: FLUTICASONE/VILANTEROL 100/25MCG 14 PUFFS/INHALER INH SCH (07:41)
[2021-10-24] MEDS: ENOXAPARIN INJ 40 MG/0.4 ML SYR SQ SCH (07:41)
[2021-10-24] MEDS ORDERED: LOSARTAN POTASSIUM 50 MG TAB PO SCH (09:00)
[2021-10-24] MEDS ORDERED: LANTUS PER UNIT CHARGE SQ SCH (09:00)
--- NOTE | 2021-10-24 09:32 | Surgery Progress Note ---
Date of Service October 24, 2021 Assessment & Plan (1) Diverticulitis of colon with perforation: Plan: Doing well. Will advance to low residue diet. Discharge planning. no surgical indications we will sign off. Please call if needed Admission and Anticipated Discharge Date Admission Date: October 20, 2021 Subjective Patient doing well. Feeling better. No pain at all. Hungry. Tolerating full liquids. Physical Exam Constitutional: WD/WN, vitals as above no acute distress and not ill appearing Eyes: PERRL, conjunctivae normal, anicteric sclerae EOM intact bilaterally ENMT: external ear and nose normal, oropharynx normal Ears: no hearing impairment Neck: trachea midline, no thyromegaly Respiratory: normal respiratory effort; no respiratory distress and does not use accessory muscles Cardiovascular: Rate/Rhythm: regular rate and regular rhythm Gastrointestinal (Abdomen): Soft. Nontender. Much improved Skin: no rashes, warm and dry Psychiatric: Orientation: alert, oriented x 3 and cooperative Results & Data ([facility]) Vital Signs (Past 12 Hours) Vital Signs Temp Pulse Pulse Resp BP Pulse Ox O2 Del Method 10/24/21 08:00 101 H 10/24/21 07:47 36.7 C 82 18 162/90 H 91 Room Air 10/24/21 04:00 37.0 C 78 18 169/82 H 91 Room Air 10/23/21 23:00 36.8 C 75 18 155/75 H 92 Room Air PG Care Time/CCT Total # of Minutes Spent Total Time Spent with Patient: Total time spent is greater than 50% in coordination of care (as documented) at patient's floor/unit and/or counseling patient: Coding Level of Care Code 22246 Subseq Hosp Care Lvl 2 Diagnoses Diverticulitis of colon with perforation K57.20
[2021-10-24 12:05] VITALS: BP 125/69; PULSE 74; TEMP 98.2
--- NOTE | 2021-10-24 14:23 | Discharge Summary ---
Date of Service October 24, 2021 Admission HPI Per Admitting Provider Olamide 66yo female with type 2 diabetes on insulin pump, IBS-C, diverticular disease as seen on past colonoscopy, and HTN presents from home with lower abdominal pain and vomiting. She states that yesterday morning she thought she was constipated and took her Linzess. Her lower abdomen was uncomfortable at that time. She had a small, firm/hard bowel movement, followed by loose stool, then another small hard bowel movement. Despite having these stools she continued with lower abdominal discomfort - worst in the RLQ and suprapubic region, and minimal pain in the LLQ. She managed to eat dinner last pm despite the pain. She went to bed last evening, and then about 0200 early today she awoke with severe lower abdominal pain and multiple episodes of vomiting. The vomiting was nonbilious and nonbloody. She denies any bright red bleeding per rectum. Since the pain was severe and unremitting she finally came to the ER this am for evaluation. CT abd/pelvis showed sigmoid diverticulitis with microperforation. A dose of IV zosyn was given. The patient is on an insulin humalog pump at home and she also has a continuous glucose monitoring system in place as well. BSGs have ranged upper 100s to low 200s since yesterday. Principal Diagnosis Acute diverticulitis Discharge Exam No acute distress Abdomen nonperitoneal Vital Signs Temp Pulse Pulse Resp BP Pulse Ox O2 Del Method 10/24/21 11:31 36.8 C 74 18 125/69 91 Room Air 10/24/21 08:00 101 H 10/24/21 07:47 36.7 C 82 18 162/90 H 91 Room Air 10/24/21 04:00 37.0 C 78 18 169/82 H 91 Room Air 10/23/21 23:00 36.8 C 75 18 155/75 H 92 Room Air 10/23/21 19:27 37.1 C 69 16 145/79 H 92 Room Air 10/23/21 16:00 74 10/23/21 14:53 36.8 C 84 18 145/80 H 91 Room Air Intake and Output 10/23/21 10/24/21 10/24/21 22:59 06:59 14:59 Intake Total 510 / 4 355 / 2044 516.667 / 516.667 Balance 510 / 2044 355 / 2044 516.667 / 516.667 Intake: IV 510 / 1444 115 / 1444 516.667 / 516.667 Magnesium Sulfate / D5w 1 gm In 286.667 / 286.667 100 ml @ 50 mls/hr IV Q2H [facility] Rx#:[id number] Piperacillin/Tazobactam 3.375 115 / 345 230 / 230 gm In Dextrose 5% 100 ml @ 28. 75 mls/hr IV Q8H [facility] Rx#: [id number] Potassium Phosphate 30 mmol In 510 / 510 Sodium Chloride 0.9% 500 ml @ 88 mls/hr IV ONE ONE Rx#: [id number] Oral 240 / 600 Other: # Unmeasured Voids 1 Weight 81 kg Discharge Data Allergies Allergy/AdvReac Type Severity Reaction Status Date / Time bupropion Allergy Severe muscle Verified 08/28/21 16:07 pains and cramps codeine Allergy Intermediate GI Verified 08/28/21 16:07 INTOLERANCE erythromycin base Allergy Intermediate DIZZINESS Verified 08/28/21 16:07 levothyroxine Allergy Intermediate HIVES Verified 08/28/21 16:07 mold Allergy Intermediate CHEST Verified 08/28/21 16:07 CONGESTION prochlorperazine Allergy Intermediate restless Verified 08/28/21 16:07 house dust Allergy Unknown Unknown Verified 08/28/21 16:07 lisinopril Allergy Unknown Unknown Verified 08/28/21 16:07 metformin Allergy Unknown "METRFORMIN Verified 08/28/21 16:07 ALLERGY"?? milk AdvReac Intermediate GI DISTRESS Verified 08/28/21 16:07 paroxetine AdvReac Intermediate BAD DREAMS Verified 08/28/21 16:07 Consultations 10/20/21 12:40 ED Decision to Admit Stat 10/20/21 16:22 Consult General Surgery Routine Ordered Studies 10/20/21 11:04 CT Abd and Pelvis [CT abd pelvis wo con] Stat Hospital Course (1) Diverticulitis of colon with perforation: Conservative management; tolerated full diet at lunch; wants to go home; low fiber at discharge; outpatient GI for consideration of colonoscopy; metro nidazole and cefdinir at discharge (2) Controlled type 2 diabetes mellitus with kidney complication, with long-term current use of insulin: Home regimen at discharge (3) Asthma: Nonacute problemfollow clinically (4) Esophageal reflux disease: Continue PPI (5) Hypertension: Resume home medicines at discharge (6) Hypothyroidism: Home regimen at discharge (7) Dyslipidemia: Continue statin Plan Follow anemiano clinical bleeding CBC, BMP, mag and Phos as outpatient in about a week is recommended Total Time Total Time Spent Total Time Spent (In Minutes): 32 Discharge Plan Discharge Items Patient Disposition: Home - Self-Care Reason For Visit: ACUTE SIGMOID DIVERTICULITIS WITH MICROPERFORATION Discharge Diagnosis: Acute diverticulitis Activity: Resume your previous activity Activity Comment: As tolerated Non-emergency contact: Primary Care Provider and Surgeon Call non-emergency contact if: your symptoms worsen Follow-up/Referrals: Edgar Green MD [Physician] - (Recent diverticulitis; consideration for colonoscopy) Ag Vigil DO [Primary Care Provider] - (Posthospitalization follow-up, recommended in 5 to 7 days; follow CBC, BMP, magnesium, phosphorus) Diet: Carb Consistent or DM2, Heart Healthy and Low Fiber Addtl Attending Provider Instructions: Low fiber diet for about 6 to 8 weeks; after that, continue prior diet Recommend get complete blood count, basic metabolic panel, magnesium, phosphorus check with your primary doctor in about 5 to 7 days Pending Studies at Discharge: Yes Studies:: Final blood culture resultsnot expected to be positive Stand-Alone Forms: My [facility] [employer], Smoking Cessation Medications and DC Order Prescriptions: New cefdinir 300 mg capsule 300 mg PO BID 6 Days Qty: 12 0RF metronidazole 500 mg tablet 500 mg PO Q8H 6 Days Qty: 18 0RF Rx Instructions: Do not consume alcohol while taking and for 2 days after end of treatment with this medication Continued sertraline 25 mg tablet 25 mg PO DAILY Qty: 90 3RF (DME) nebulizer accessories Kit See Rx Instructions .ROUTE .MEDSUPPLY Qty: 1 0RF Rx Instructions: Nebulizer tubing. Lifetime need. trazodone 50 mg tablet 50 mg PO HS PRN (Reason: insomnia) Qty: 90 1RF pantoprazole 40 mg tablet,delayed release (DR/EC) 40 mg PO BID Qty: 180 1RF (DME) FreeStyle Gagan 2 [place] Misc See Rx Instructions .ROUTE .MEDSUPPLY Qty: 1 0RF Rx Instructions: for use with sensors amlodipine 5 mg tablet 5 mg PO QAM Qty: 90 3RF (DME) FreeStyle Gagan 2 Sensor Kit See Rx Instructions .ROUTE .MEDSUPPLY Qty: 3 3RF Rx Instructions: change sensor every 2 weeks miconazole nitrate [Monistat 7] 2 % cream vaginal Rx Instructions: Recommend OTC monistat w/f/u call to notify how she is doing. levothyroxine [Unithroid] 88 mcg tablet 88 mcg PO QAM Qty: 90 1RF (DME) Omnipod Dash Pods (Gen 4) Cartridge See Rx Instructions .Route Qty: 15 12RF Rx Instructions: Change pod every 3 days rosuvastatin 5 mg tablet 5 mg PO DAILY Qty: 90 1RF sumatriptan succinate 50 mg tablet 50 mg PO Q2H PRN (Reason: migraine headache) Qty: 10 5RF Rx Instructions: PER PT "HAVEN'T FILLED SCRIPT IN A WHILE". sodium chloride [[place] Saline] 0.65 % aerosol,spray 1 sprays INTNAS BID PRN (Reason: Allergy Symptoms) cyanocobalamin-cobamamide [B-12 Plus] 5,000-100 mcg tablet, sublingual 1 tab sublingual DAILY cholecalciferol (vitamin D3) 10 mcg (400 unit) capsule 10 mcg PO DAILY esomeprazole magnesium 20 mg capsule,delayed release(DR/EC) 20 mg PO DAILY losartan 100 mg tablet 100 mg PO DAILY Breo Ellipta 100-25 mcg/dose blister with device 1 inh INH DAILY PRN (Reason: Allergy Symptoms) Qty: 60 5RF ipratropium-albuterol 0.5 mg-3 mg(2.5 mg base)/3 mL solution for nebulization 3 ml inhalation TID PRN (Reason: wheezing) Qty: 4 0RF albuterol sulfate [Ventolin HFA] 90 mcg/actuation HFA aerosol inhaler 2 puff inhalation QID PRN (Reason: shortness of breath or wheezing) Qty: 18 5RF Ozempic 0.25 mg or 0.5 mg(2 mg/1.5 mL) pen injector 0.5 mg subcut Q7D Qty: 1.5 5RF clonidine HCl 0.1 mg tablet 0.1 mg PO BID PRN (Reason: hypertensive emergency) cetirizine 10 mg tablet 10 mg PO QAM aspirin 81 mg Tablet,Delayed Release (Dr/Ec) 81 mg PO QAM guaifenesin [Mucinex] 600 mg Tablet Extended Release 12hr 600 mg PO QAM Tylenol Cold Multi-Symptom [id number] mg Tablet 2 tab PO DIRECTED PRN (Reason: Cold Symptoms) chlorthalidone 25 mg tablet 25 mg PO DAILY Rx Instructions: Take 1 tablet by mouth once daily montelukast 10 mg tablet 10 mg PO QAM insulin lispro [Humalog U-100 Insulin] 100 unit/mL solution 70 unit continuous subcutaneous infusion DAILY Rx Instructions: via insulin pump Discharge Orders: Discharge Order (Routine); Ordered 10/24/21 Ordered By: Nicolasa Hobson Admission Data Admit Date/Time: 10/20/21 13:30 Attending Provider: Nicolasa Hobson Admit Provider: Neal St Primary Care Provider: Ag Vigil Other Providers: Neal St ; Ifeanyi Franks Coding Level of Care Code D/C DAY MANAGEMENT >30 MINS Diagnoses Diverticulitis of colon with perforation K57.20 Controlled type 2 diabetes mellitus with kidney complication, with long-term current use of insulin E11.29; Z79.4 Asthma J45.909 Esophageal reflux disease K21.9 Hypertension I10 Hypothyroidism E03.9 Dyslipidemia E78.5
== END 2021-10-24 16:10 | disposition home or self-care (01) | DRG 392 ==
LOC: ED 10:20 → SUATTDRO 13:30 → 2S 13:30 → 4W 10-21 11:17

== ENCOUNTER 2023-09-13 08:27 | Observation (INO) ==
[2023-09-13] MEDS: SODIUM CHLORIDE 0.9% 500 ML IV ONE (09:17)
[2023-09-13] MEDS: ALBUT/IPRATROP 3MG/0.5MG NEB 3 ML VIAL NEB STA ×2 (09:18→12:28)
[2023-09-13] MEDS: ONDANSETRON INJ 2 MG/ML 2 ML VIAL IV STA ×2 (09:18→10:17)
[2023-09-13 09:26] LABS: Basophils # (auto) 0.07 K/uL (0.00-0.20); Basophils % (auto) 0.6 %; Eosinophils # (auto) 0.24 K/uL (0.00-0.50); Eosinophils % (auto) 2.2 %; Hematocrit (blood only) 39.2 % (37.0-47.0); Hemoglobin 13.1 g/dl (12.0-16.0); Immature Granulocytes # (auto) 0.03 K/uL (0.01-0.20); Immature Granulocytes % (auto) 0.3 %; Lymphocytes # (auto) 1.03 K/uL (1.20-3.40); Lymphocytes % (auto) 9.5 %; Mean Corpuscular Hemoglobin 30.4 pg (25.0-34.0); Mean Corpuscular Hgb Conc 33.4 g/dL (32.0-36.0); Mean Platelet Volume 9.9 fL (9.4-12.4); Monocytes # (auto) 0.62 K/uL (0.11-0.59); Monocytes % (auto) 5.7 %; Neutrophils # (auto) 8.84 K/uL (1.40-6.50); Neutrophils % (auto) 81.7 %; Platelet Count 289 K/uL (130-400); RDW Coefficient of Variation 11.9 % (11.5-14.5); RDW Standard Deviation 39.5 fL (36.4-46.3); Red Blood Count 4.31 M/uL (4.20-5.40); White Blood Count 10.83 K/ul (4.8-10.8)
[2023-09-13 09:31] LABS: Albumin Level 4.7 gm/dl (3.4-5.0); BUN Creatinine Ratio 17.5 (10-20); Bilirubin Direct 0.1 mg/dl (0-0.2); Bilirubin,Total 0.4 mg/dl (0.2-1.0); Est GFR (Non-African American) 50.1 ml/min; Potassium 3.7 mmol/L (3.5-5.1); Total Protein 7.9 gm/dl (6.0-8.3)
--- NOTE | 2023-09-13 09:37 | Emergency Department Note ---
History of Present Illness General Chief complaint: Illness Stated complaint: VOMITING, COUGH, MUCUS Time Seen by Provider: 09/13/23 09:01 History of Present Illness Provider complaint: Nausea vomiting cough congestion 68-year-old female presents emergency department for nausea vomiting cough and congestion. Patient reports she has been having cough and congestion for the last week. Patient also reports that this morning she started feeling constipated and having nausea and vomiting. No hematemesis coffee-ground emesis or bilious vomiting. No blood thinners. No falls or traumas. No hemoptysis. No chest pain. Home Medications Medication Instructions Recorded Confirmed Type sumatriptan succinate 50 mg tablet 50 mg PO Q2H PRN migraine headache 09/16/18 09/13/23 Rx #10 tabs sodium chloride 0.65 % nasal spray 1 sprays intranasal BID PRN 10/08/18 09/13/23 History aerosol (Statham Saline) Allergy Symptoms aspirin 81 mg tablet,delayed 81 mg PO QAM 01/11/19 09/13/23 History release guaifenesin 600 mg tablet, 600 mg PO QAM 01/11/19 09/13/23 History extended release 12 hr (Mucinex) nebulizer accessories #1 ea 09/19/19 08/05/23 Rx trazodone 50 mg tablet 50 mg PO HS PRN insomnia #90 tabs 12/15/19 09/13/23 Rx hydrochlorothiazide 12.5 mg tablet 12.5 mg PO QAM 01/06/22 09/13/23 History pantoprazole 40 mg tablet,delayed 40 mg PO HS PRN 01/06/22 09/13/23 History release HEARTBURN/INDIGESTION rosuvastatin 5 mg tablet 5 mg PO QAM 01/06/22 09/13/23 History Omnipod Dash Pods (Gen 4) (insulin #15 ea 07/07/22 08/05/23 Rx pump cart,cont inf,BT) ipratropium 0.5 mg-albuterol 3 mg 3 ml inhalation TID PRN wheezing 07/21/22 09/13/23 Rx (2.5 mg base)/3 mL nebulization #180 mL soln albuterol sulfate 90 mcg/actuation 2 puff inhalation Q6H PRN 07/30/22 09/13/23 Rx aerosol inhaler shortness of breath or wheezing #8.5 grams fluticasone furoate 100 1 inh inhalation DAILY #60 ea 05/25/23 09/13/23 Rx mcg-vilanterol 25 mcg/dose inhalation powder (Breo Ellipta) montelukast 10 mg tablet 10 mg PO QAM #90 tabs 05/25/23 09/13/23 Rx Unithroid 88 mcg tablet 88 mcg PO QAM #90 tabs 06/15/23 09/13/23 Rx (levothyroxine) blood-glucose sensor (Dexcom G7 06/15/23 08/05/23 History Sensor device) insulin pump cart,automated,BT #10 ea 06/16/23 08/05/23 Rx (Omnipod 5 G6 Pods (Gen 5) subcutaneous cartridge) insulin pump cartridge,automated #1 ea 06/16/23 08/05/23 Rx dose,BT with controller subcutaneous (Omnipod 5 G6 Intro Kit (Gen 5) subcutaneous cartridge with controller) cyclobenzaprine 10 mg tablet 10 mg PO HS 07/07/23 09/13/23 History magnesium oxide 400 mg PO HS 07/07/23 09/13/23 History naproxen 500 mg tablet 500 mg PO BID PRN Pain 07/07/23 09/13/23 History gabapentin 300 mg capsule 100 - 200 mg PO HS 08/05/23 09/13/23 History Humalog U-100 Insulin 100 unit/mL 0 unit (0 mL) subcut .COMPLEX #30 08/10/23 09/13/23 Rx subcutaneous solution (insulin mL lispro) Vitafusion 2 tabs PO QPM 09/13/23 09/13/23 History amlodipine 5 mg tablet 2.5 mg PO QAM 09/13/23 09/13/23 History losartan 25 mg tablet 25 mg PO QAM 09/13/23 09/13/23 History Allergies Allergy/AdvReac Type Severity Reaction Status Date / Time levothyroxine Allergy Intermediate HIVES Verified 08/05/23 13:30 mold Allergy Intermediate CHEST Verified 08/05/23 13:30 CONGESTION house dust Allergy Unknown Unknown Verified 08/05/23 13:30 lisinopril Allergy Unknown Unknown Verified 08/05/23 13:30 metformin Allergy Unknown "METRFORMIN Verified 08/05/23 13:30 ALLERGY"?? bupropion AdvReac Severe muscle Verified 08/05/23 13:30 pains and cramps codeine AdvReac Intermediate GI Verified 08/05/23 13:30 INTOLERANCE erythromycin base AdvReac Intermediate DIZZINESS Verified 08/05/23 13:30 milk AdvReac Intermediate GI DISTRESS Verified 08/05/23 13:30 paroxetine AdvReac Intermediate BAD DREAMS Verified 08/05/23 13:30 prochlorperazine AdvReac Intermediate restless Verified 08/05/23 13:30 Past Med/Surg History Problem List (Updated 09/13/23 @ 14:13 by Titus Mayes MD) Diarrhea Hypoxia Acute exacerbation of chronic obstructive pulmonary disease (COPD) (Acute) Nausea and vomiting Serum calcium elevated History of diverticulitis Uncontrolled type 2 diabetes mellitus with retinopathy, with long-term current use of insulin (Acute) Internal hemorrhoids (Acute) Hypertension (Acute 06/19/12) Anemia Irritable bowel syndrome with constipation Insomnia Asthma Controlled type 2 diabetes mellitus with kidney complication, with long-term current use of insulin Moderate nonproliferative diabetic retinopathy with macular edema Asthma Allergic rhinitis with postnasal drip Upper airway cough syndrome Dyslipidemia Esophageal reflux disease (Acute) Hypothyroidism (Acute) Osteopenia (Acute) Statin intolerance (Acute) Medical History Hx MRSA infection leg would ~20 years ago, treated Nausea and vomiting after administration of anesthetic agent "for at least 24 hours" History of inguinal hernia right Cardiac murmur Diabetes mellitus, type 2 Seizure 02/2021, went to [place] ER, "found to have hs mini seizures following a migraine" Diverticulitis of colon with perforation 11/2021-hx Diabetic macular edema Diabetic nephropathy Colitis Right sided abdominal pain History of leukocytosis History of gastrointestinal hemorrhage pt "unsure about this diagnosis, doesn't know anything about this" History of female infertility History of cellulitis "pt doesn't know anything about this" COPD, moderate inh and nebulizer prn; f/u [facility] Chronic bronchitis Depression with anxiety Headache, migraine hx Hypertension History of in vitro fertilization Surgical History Hx of laparoscopy History of bronchoscopy x2 History of esophagogastroduodenoscopy (EGD) Hx of colonoscopy History of incision and drainage growth on top of her head from shingles H/O dilation and curettage H/O sinus surgery Family History Mother Coronary arteriosclerosis Diabetes CHF (congestive heart failure) Sister Diabetes CHF (congestive heart failure) Cardiac arrest Father Macular degeneration Hypertension Stroke Suicide age 87 from self-inflicted gunshot wound Grandmother (Maternal) Breast cancer Social History Smoking Status: Never smoker Second Hand Exposure: No; Do You Dip or Chew Tobacco: No; Hx Alcohol Use: No Hx Substance Use: No Preferred Language: Icelandic Communication Ability: Effective Coffee Maker Servicer Required: No Beliefs That Will Affect Care: None marital status: Current Living Situation: Spouse Current Living Situation Comment: lives near [place] 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 How many Children do You have: 0 Feels Safe at Home: Yes Seatbelt Use: always Assistive Devices: Glasses and Nebulizer Physical Exam Vital Signs Vital Signs - 24 hr 09/13/23 08:29 09/13/23 09:03 09/13/23 09:06 Temperature 36.8 C Temperature Source Temporal Artery Scan Pulse Rate 102 H 90 Pulse Rate from SpO2 Sensor 90 Respiratory Rate 18 17 Respiratory Effort / Characteristics Non-Labored Spontaneous Respiratory Depth Normal Blood Pressure 167/93 H 133/87 Blood Pressure Mean 117 119 Blood Pressure Position Sitting Pulse Oximetry 92 91 Oxygen Delivery Method Room Air Oxygen Flow Rate Sepsis Recent Fever Within 48 Hours No Sepsis New/Unexplained Change in Mental Status N/A Sepsis Action Taken by Nursing No Action Required 09/13/23 09:13 09/13/23 09:13 09/13/23 09:14 Temperature Temperature Source Pulse Rate Pulse Rate from SpO2 Sensor Respiratory Rate Respiratory Effort / Characteristics Respiratory Depth Blood Pressure Blood Pressure Mean Blood Pressure Position Pulse Oximetry 87 L 95 95 Oxygen Delivery Method Room Air Nasal Cannula Nasal Cannula Oxygen Flow Rate 2 2 Sepsis Recent Fever Within 48 Hours Sepsis New/Unexplained Change in Mental Status Sepsis Action Taken by Nursing 09/13/23 09:18 09/13/23 09:24 09/13/23 09:28 Temperature Temperature Source Pulse Rate 85 88 86 Pulse Rate from SpO2 Sensor 85 89 Respiratory Rate 15 16 Respiratory Effort / Characteristics Respiratory Depth Blood Pressure Blood Pressure Mean Blood Pressure Position Pulse Oximetry 97 97 Oxygen Delivery Method Oxygen Flow Rate Sepsis Recent Fever Within 48 Hours Sepsis New/Unexplained Change in Mental Status Sepsis Action Taken by Nursing 09/13/23 09:30 09/13/23 09:30 09/13/23 09:48 Temperature Temperature Source Pulse Rate 83 93 H Pulse Rate from SpO2 Sensor 84 92 H Respiratory Rate 18 14 Respiratory Effort / Characteristics Respiratory Depth Blood Pressure 152/88 H Blood Pressure Mean 111 Blood Pressure Position Pulse Oximetry 100 96 Oxygen Delivery Method Oxygen Flow Rate Sepsis Recent Fever Within 48 Hours Sepsis New/Unexplained Change in Mental Status Sepsis Action Taken by Nursing 09/13/23 09:54 09/13/23 10:41 09/13/23 10:42 Temperature Temperature Source Pulse Rate Pulse Rate from SpO2 Sensor 93 H Respiratory Rate Respiratory Effort / Characteristics Respiratory Depth Blood Pressure 204/108 H Blood Pressure Mean 155 Blood Pressure Position Pulse Oximetry 92 85 L Oxygen Delivery Method Room Air Oxygen Flow Rate Sepsis Recent Fever Within 48 Hours Sepsis New/Unexplained Change in Mental Status Sepsis Action Taken by Nursing 09/13/23 10:43 09/13/23 10:46 09/13/23 10:48 Temperature Temperature Source Pulse Rate 92 H Pulse Rate from SpO2 Sensor 92 H Respiratory Rate 14 Respiratory Effort / Characteristics Respiratory Depth Blood Pressure 186/104 H Blood Pressure Mean 164 Blood Pressure Position Pulse Oximetry 93 96 Oxygen Delivery Method Nasal Cannula Oxygen Flow Rate 2 Sepsis Recent Fever Within 48 Hours Sepsis New/Unexplained Change in Mental Status Sepsis Action Taken by Nursing 09/13/23 10:54 09/13/23 11:00 09/13/23 11:06 Temperature Temperature Source Pulse Rate 91 H 92 H Pulse Rate from SpO2 Sensor 91 H 91 H Respiratory Rate 17 24 Respiratory Effort / Characteristics Respiratory Depth Blood Pressure 180/105 H Blood Pressure Mean 127 Blood Pressure Position Pulse Oximetry 97 96 Oxygen Delivery Method Oxygen Flow Rate Sepsis Recent Fever Within 48 Hours Sepsis New/Unexplained Change in Mental Status Sepsis Action Taken by Nursing 09/13/23 11:21 09/13/23 11:39 09/13/23 11:39 Temperature Temperature Source Pulse Rate 96 H Pulse Rate from SpO2 Sensor 97 H Respiratory Rate 17 Respiratory Effort / Characteristics Respiratory Depth Blood Pressure 156/84 H 156/84 H Blood Pressure Mean 108 108 Blood Pressure Position Pulse Oximetry 95 Oxygen Delivery Method Oxygen Flow Rate Sepsis Recent Fever Within 48 Hours Sepsis New/Unexplained Change in Mental Status Sepsis Action Taken by Nursing 09/13/23 12:51 Temperature Temperature Source Pulse Rate Pulse Rate from SpO2 Sensor 92 H Respiratory Rate Respiratory Effort / Characteristics Respiratory Depth Blood Pressure Blood Pressure Mean Blood Pressure Position Pulse Oximetry 94 Oxygen Delivery Method Oxygen Flow Rate Sepsis Recent Fever Within 48 Hours Sepsis New/Unexplained Change in Mental Status Sepsis Action Taken by Nursing Physical Exam HENT: Exam performed. - Head: Normocephalic and atraumatic. EYES: Conjunctivae and EOM are normal. Right eye exhibits no discharge. Left eye exhibits no discharge. No scleral icterus. NECK: Normal range of motion. Neck supple. No JVD present. CV: Normal rate, regular rhythm, normal heart sounds and intact distal pulses. There is no peripheral edema. Palpable radial pulses bue. PULM/CHEST: Rhonchi bilaterally. Scant expiratory wheezes bilaterally. ABD: The abdomen is soft. There is diffuse tenderness to palpation. No guarding or rigidity. NEURO: Motor and sensation grossly intact. SKIN: Skin is warm and dry. He is not diaphoretic. Course Course 0901: The patient was evaluated in room B9. A complete history and physical exam was performed Cardiac monitoring: An order was placed for continuous cardiac monitoring. The monitor shows a rate of 100 with sinus rhythm interpreted by ca 0915:Patient hypoxic on room air. Supplemental oxygen placed via nasal cannula which improved the patient's oxygen saturation. 1020: Vital signs stable supplemental oxygen via nasal cannula. D-dimer elevated. Will conduct CTA of the chest as well as CT abdomen pelvis. 1215: Vital signs stable on supplemental oxygen via nasal cannula. Patient having increased wheezing. Repeat DuoNeb ordered along with Solu-Medrol IV. Labs show leukocytosis of 10.83 BioFire negative. Urinalysis negative. CTA of the chest CT abdomen pelvis negative. Patient will be admitted to the [facility] hospitalist team. Administered Medications Parenteral Electrolytes (Plasma-Lyte A Ph 7.4) 1,000 mls @ 80 mls/hr IV .[id number] NATIVIDAD Stop: 09/14/23 14:29 Last Admin: 09/13/23 13:58 Dose: 80 mls/hr Documented By: MMF Discontinued Medications Albuterol (Albut/Ipratrop 3mg/0.5mg Neb 3 Ml Vial) 3 ml NEB NOW STA; Protocol Stop: 09/13/23 09:15 Last Admin: 09/13/23 09:18 Dose: 3 ml Documented By: MMF Albuterol (Albut/Ipratrop 3mg/0.5mg Neb 3 Ml Vial) 3 ml NEB NOW STA; Protocol Stop: 09/13/23 12:19 Last Admin: 09/13/23 12:28 Dose: 3 ml Documented By: GINO Amlodipine Besylate (Amlodipine Besylate 5 Mg Tab) 2.5 mg PO NOW ONE Stop: 09/13/23 13:44 Last Admin: 09/13/23 13:56 Dose: 2.5 mg Documented By: OLIVA Sodium Chloride (Nss) 500 mls @ 999 mls/hr IV .Q31M ONE Stop: 09/13/23 09:37 Last Infusion: 09/13/23 11:51 Dose: Infused Documented By: Admin: 09/13/23 09:17 Dose: 999 mls/hr Documented By: OLIVA Acetaminophen (Ofirmev) 1,000 mg in 100 mls @ 400 mls/hr IV NOW STA Stop: 09/13/23 10:34 Last Infusion: 09/13/23 11:11 Dose: Infused Documented By: Admin: 09/13/23 10:29 Dose: 400 mls/hr Documented By: OLIVA Methylprednisolone 125 mg/ (Syringe) 2 mls @ 0.667 mls/min IV NOW ONE Stop: 09/13/23 12:20 Last Admin: 09/13/23 13:04 Dose: 0.667 mls/min Documented By: OLIVA Pantoprazole Sodium 40 mg/ (Syringe) 10 mls @ 5 mls/min IV NOW ONE Stop: 09/13/23 13:40 Last Admin: 09/13/23 13:57 Dose: 5 mls/min Documented By: OLIVA Ioversol (Optiray 320 125ml) 119 ml IV ONCE ONE Stop: 09/13/23 11:30 Last Admin: 09/13/23 11:29 Dose: 119 ml Documented By: CARLOS Losartan Potassium (Losartan Potassium 25 Mg Tab) 25 mg PO NOW STA Stop: 09/13/23 13:44 Last Admin: 09/13/23 13:57 Dose: 25 mg Documented By: OLIVA Ondansetron HCl (Ondansetron Inj 2 Mg/Ml 2 Ml Vial) 4 mg IV NOW STA Stop: 09/13/23 09:08 Last Admin: 09/13/23 09:18 Dose: 4 mg Documented By: OLIVA Ondansetron HCl (Ondansetron Inj 2 Mg/Ml 2 Ml Vial) 4 mg IV NOW STA Stop: 09/13/23 10:14 Last Admin: 09/13/23 10:17 Dose: 4 mg Documented By: ML Critical Care Time Critical Care Time: Yes Total Critical Care Time: 36 I have personally spent greater than 36 minutes of critical care time in the direct management of this patient. This includes bedside care, interpretation of diagnostic studies, and testing, discussion with consultants, patient, and family members, and other required patient management activities. This 36 minutes is in excess of all separately billable procedures. Medical Decision Making Laboratory Data Attestation: I reviewed the patient's lab results. 09/13/23 09:01 09/13/23 09:01 Lab Results 09/13/23 09/13/23 09/13/23 Range/Units 09:01 09:14 13:21 WBC 10.83 H (4.8-10.8) K/ul RBC 4.31 (4.20-5.40) M/uL Hgb 13.1 (12.0-16.0) g/dl Hct 39.2 (37.0-47.0) % MCV 91.0 (80.0-100.0) fL MCH 30.4 (25.0-34.0) pg MCHC 33.4 (32.0-36.0) g/dL RDW Std Deviation 39.5 (36.4-46.3) fL RDW Coeff of Mckay 11.9 (11.5-14.5) % Plt Count 289 (130-400) K/uL MPV 9.9 (9.4-12.4) fL Immature Gran % (Auto) 0.3 % Neut % (Auto) 81.7 % Lymph % (Auto) 9.5 % [place] % (Auto) 5.7 % Eos % (Auto) 2.2 % Baso % (Auto) 0.6 % Neut # (Auto) 8.84 H (1.40-6.50) K/uL Lymph # (Auto) 1.03 L (1.20-3.40) K/uL [place] # (Auto) 0.62 H (0.11-0.59) K/uL Eos # (Auto) 0.24 (0.00-0.50) K/uL Baso # (Auto) 0.07 (0.00-0.20) K/uL Immature Gran # (Auto) 0.03 (0.01-0.20) K/uL PT 10.7 (9.0-12.0) Seconds INR 1.0 (0.9-1.1) APTT 23 (21-31) Seconds PTT Ratio 0.9 D-Dimer 810 H* (0-500) ug/L FEU Sodium 134 L (136-145) mmol/L Potassium 3.7 (3.5-5.1) mmol/L Chloride 92 L (98-107) mmol/L Carbon Dioxide 34 H (21-32) mmol/L Anion Gap 8 (3-11) BUN 20 (6-23) mg/dl Creatinine 1.14 (0.6-1.2) mg/dl Est Cr Clr Drug Dosing 45.0 ml/min Est GFR ( Amer) 58.0 ml/min Est GFR (Non-Af Amer) 50.1 ml/min BUN/Creatinine Ratio 17.5 (10-20) Glucose 178 H (70-99(Fasting)) mg/dl Calcium 10.0 (8.6-10.3) mg/dl Magnesium 2.6 H (1.7-2.4) mg/dl Total Bilirubin 0.4 (0.2-1.0) mg/dl Direct Bilirubin 0.1 (0-0.2) mg/dl AST 16 (13-39) U/L ALT 12 (7-52) U/L Alkaline Phosphatase 60 (34-104) U/L Total Protein 7.9 (6.0-8.3) gm/dl Albumin 4.7 (3.4-5.0) gm/dl Lipase 58 (11-82) U/L Urine Color Yellow Urine Appearance Clear (Clear) Urine pH 8.5 H (4.5-7.5) Ur Specific Hartley 1.025 (1.000-1.030) Urine Protein 2+ H (Negative) Urine Glucose (UA) Trace H (Negative) Urine Ketones 1+ H (Negative) Urine Blood Negative (Negative) Urine Nitrite Negative (Negative) Urine Bilirubin Negative (Negative) Urine Urobilinogen Negative (Negative) Ur Leukocyte Esterase Negative (Negative) Urine WBC (Auto) 0-5 (0-5) /hpf Urine RBC (Auto) 3-5 H (0-2) /hpf U Hyaline Cast (Auto) 0-2 (0-2) /lpf U Epithel Cells (Auto) 0-2 (0-2) /hpf Urine Bacteria (Auto) None Seen (None Seen) Adenovirus (PCR) Not Detected (NotDetected) B. pertussis DNA (PCR) Not Detected (NotDetected) B.parapertussis DNA PCR Not Detected (NotDetected) C. pneumoniae DNA (PCR) Not Detected (NotDetected) Coronavirus OC43 (PCR) Not Detected (NotDetected) Coronavirus HKU1 (PCR) Not Detected (NotDetected) Coronavirus 229E (PCR) Not Detected (NotDetected) SARS-CoV-2 (PCR) Not Detected (NotDetected) Coronavirus NL63 (PCR) Not Detected (NotDetected) Human Metapneumovir PCR Not Detected (NotDetected) Influenza Type A (PCR) Not Detected (NotDetected) Influenza Type B (PCR) Not Detected (NotDetected) M. pneumoniae (PCR) Not Detected (NotDetected) Parainfluenza 1 (PCR) Not Detected (NotDetected) Parainfluenza 2 (PCR) Not Detected (NotDetected) Parainfluenza 3 (PCR) Not Detected (NotDetected) Parainfluenza 4 (PCR) Not Detected (NotDetected) RSV (PCR) Not Detected (NotDetected) Entero/Rhino (PCR) Not Detected (NotDetected) Imaging Data Attestation: I personally reviewed and interpreted this imaging study as follows: My Impression: Chest x-ray negative. Airway clear. No pneumothorax. No consolidation. No cardiomegaly or cephalization.. No free air under the diaphragm. No fractures of the skeletal structures. Radiologist's Impression: Abdomen/Pelvis CT 09/13/23 09:07 CT abd pelvis IV con only CLINICAL HISTORY: nv TECHNIQUE: Helical axial images of the abdomen and pelvis were obtained and displayed. Automated dose lowering techniques and/or adjustment according to patient size were utilized for this exam. This exam was performed with intravenous contrast. COMPARISON: Comparison is made to CT abdomen pelvis 07/07/2023 FINDINGS: Lower chest: For findings above the diaphragm, please see CT chest performed same day. Liver: Unremarkable. No focal lesions are seen. Gallbladder and biliary tree: No calcified gallstones. Normal caliber wall. No intra- or extrahepatic biliary ductal dilation. Pancreas: Unremarkable, no focal lesions. Spleen: Unremarkable. Adrenals: Unremarkable. Kidneys and ureters: Renal cysts are seen. Bladder: Unremarkable. Reproductive organs: Unremarkable. Bowel: The appendix is normal. A small hiatal hernia is seen. Lymph nodes Retroperitoneal: Unremarkable. Pelvic: Unremarkable. Mesenteric: Unremarkable. Peritoneum: Normal. Vessels: Unremarkable. Abdominal wall: Unremarkable. Bones: Degenerative changes in the visualized spine. IMPRESSION: No acute abnormalities to explain nausea and vomiting. In particular no evidence of bowel obstruction. ACT 112: Negative or not required by law. Electronically signed by: Memo Garcia M.D. 09/13/2023 11:58 AM Chest X-Ray 09/13/23 09:14 XR chest 1V portable CLINICAL HISTORY: sob TECHNIQUE: Single frontal radiograph of the chest was obtained. Comparison: Comparison is made to chest radiograph 05/08/2021 FINDINGS: No lines and tubes are seen. The cardiomediastinal silhouette is normal. The lungs are clear. No evidence of pleural effusion or pneumothorax. IMPRESSION: No acute abnormalities and in particular no radiographic evidence of pneumonia. ACT 112: Negative or not required by law. Electronically signed by: Memo Garcia M.D. 09/13/2023 9:57 AM Chest CTA 09/13/23 10:20 CT angio chest PE protocol CLINICAL HISTORY: ro PE TECHNIQUE: Multidetector row helical CT of the chest was performed with angiographic protocol. Coronal and sagittal reformations were obtained. Coronal and sagittal MIPS were obtained from the axial data set and were submitted for review. Automated dose lowering techniques and/or adjustment according to patient size were utilized for this exam. CT DOSE: 2035.18 mGy.cm Comparison: Comparison is made to CT chest 06/16/2009 FINDINGS: Lungs and pleura: Atelectasis versus scarring is seen in the dependent portions of the lungs. Heart and pericardium: Heart size is normal. No pericardial effusion. Vessels: No evidence of pulmonary embolism. Moderate atherosclerotic disease is seen. Mediastinum and adrian: Subcentimeter lymph nodes are seen. Chest wall and lower neck: Unremarkable. Abdomen: For findings below the diaphragm, please refer to CT of the abdomen dated the same. Bones: Degenerative changes in the thoracic spine. IMPRESSION: No acute abnormality and in particular no evidence of pulmonary embolus. ACT 112: Negative or not required by law. Electronically signed by: Memo Garcia M.D. 09/13/2023 11:55 AM ECG Data Attestation: I personally reviewed and interpreted this ECG as follows: Rate (beats per minute): 99 Rhythm: + normal sinus ECG Intervals/blocks: + Normal [place] and + Normal QT-c ECG ST segments: + Normal ST segments Additional Comments: QRS 78 MDM Narrative 0901: The patient was evaluated in room B9. A complete history and physical exam was performed Cardiac monitoring: An order was placed for continuous cardiac monitoring. The monitor shows a rate of 100 with sinus rhythm interpreted by me 0915:Patient hypoxic on room air. Supplemental oxygen placed via nasal cannula which improved the patient's oxygen saturation. 1020: Vital signs stable supplemental oxygen via nasal cannula. D-dimer elevated. Will conduct CTA of the chest as well as CT abdomen pelvis. 1215: Vital signs stable on supplemental oxygen via nasal cannula. Patient having increased wheezing. Repeat DuoNeb ordered along with Solu-Medrol IV. Labs show leukocytosis of 10.83 BioFire negative. Urinalysis negative. CTA of the chest CT abdomen pelvis negative. Patient will be admitted to the [facility] hospitalist team. Impression & Plan Acute exacerbation of chronic obstructive pulmonary disease (COPD) Discharge Plan Visit Data Chief Complaint: Illness Stated Complaint: VOMITING, COUGH, MUCUS ED Provider: Titus Mayes Discharge Problem: Acute exacerbation of chronic obstructive pulmonary disease (COPD) Patient Disposition: Admitted As Inpatient Forms Stand Alone Forms: My [facility] Prescriptions Prescriptions: No Action (DME) nebulizer accessories Kit See Rx Instructions .ROUTE .MEDSUPPLY Qty: 1 0RF Rx Instructions: Nebulizer tubing. Lifetime need. trazodone 50 mg tablet 50 mg PO HS PRN (Reason: insomnia) Qty: 90 1RF (DME) Omnipod Dash Pods (Gen 4) Cartridge See Rx Instructions .Route Qty: 15 12RF Rx Instructions: Change pod every 3 days albuterol sulfate 90 mcg/actuation HFA aerosol inhaler 2 puff inhalation Q6H PRN (Reason: shortness of breath or wheezing) Qty: 8.5 3RF Rx Instructions: Insurance covers Albuterol HFA (ProAir) insulin lispro [Humalog U-100 Insulin] 100 unit/mL solution 0 unit subcut .COMPLEX MDD 70 units Qty: 30 3RF Rx Instructions: subcutaneously; via insulin pump sumatriptan succinate 50 mg tablet 50 mg PO Q2H PRN (Reason: migraine headache) Qty: 10 5RF sodium chloride [Statham Saline] 0.65 % aerosol,spray 1 sprays INTNAS BID PRN (Reason: Allergy Symptoms) fluticasone furoate-vilanterol [Breo Ellipta] 100-25 mcg/dose blister with device 1 inh inhalation DAILY Qty: 60 10RF montelukast 10 mg tablet 10 mg PO QAM Qty: 90 4RF ipratropium-albuterol 0.5 mg-3 mg(2.5 mg base)/3 mL solution for nebulization 3 ml inhalation TID PRN (Reason: wheezing) Qty: 180 4RF (DME) Dexcom G7 Sensor Device See Rx Instructions .Route Rx Instructions: Change sensor every 10 days levothyroxine [Unithroid] 88 mcg tablet 88 mcg PO QAM Qty: 90 1RF Rx Instructions: MUST BE NAME BRAND (DME) Omnipod 5 G6 Intro Kit (Gen 5) Cartridge See Rx Instructions .ROUTE .MEDSUPPLY Qty: 1 0RF Rx Instructions: As directed (DME) Omnipod 5 G6 Pods (Gen 5) Cartridge See Rx Instructions .ROUTE .MEDSUPPLY Qty: 10 11RF Rx Instructions: Change pod every 3 days aspirin 81 mg Tablet,Delayed Release (Dr/Ec) 81 mg PO QAM guaifenesin [Mucinex] 600 mg Tablet Extended Release 12hr 600 mg PO QAM hydrochlorothiazide 12.5 mg Tablet 12.5 mg PO QAM pantoprazole 40 mg tablet,delayed release (DR/EC) 40 mg PO HS PRN (Reason: HEARTBURN/INDIGESTION) rosuvastatin 5 mg tablet 5 mg PO QAM amlodipine 5 mg tablet 2.5 mg PO QAM losartan 25 mg tablet 25 mg PO QAM Vitafusion 2 tabs PO QPM Rx Instructions: Vitamin D 25mcg and Calcium 500mg. naproxen 500 mg Tablet 500 mg PO BID PRN (Reason: Pain) cyclobenzaprine 10 mg tablet 10 mg PO HS magnesium oxide 400 mg magnesium Tablet 400 mg PO HS gabapentin 300 mg capsule 100 - 200 mg PO HS Referrals Referrals: Ag Vigil DO [Primary Care Provider] -
--- NOTE | 2023-09-13 09:59 | XRay Report ---
XR chest 1V portable CLINICAL HISTORY: sob TECHNIQUE: Single frontal radiograph of the chest was obtained. Comparison: Comparison is made to chest radiograph 05/08/2021 FINDINGS: No lines and tubes are seen. The cardiomediastinal silhouette is normal. The lungs are clear. No evid ence of pleural effusion or pneumothorax. IMPRESSION: No acute abnormalities and in particular no radiographic evidence of pneumonia. ACT 112: Negative or not required by law. Electronically signed by: Memo Garcia M.D. 09/13/2023 9:57 AM
[2023-09-13 10:11] LABS: Partial Thromboplastin Ratio 0.9; Partial Thromboplastin Time 23 Seconds (21-31); Prothrombin Time 10.7 Seconds (9.0-12.0)
[2023-09-13 10:17] LABS: D Dimer 810 ug/L FEU (0-500)
[2023-09-13 10:29] LABS: Adenovirus PCR Not Detected (NotDetected); Bordetella parapertussis PCR Not Detected (NotDetected); Bordetella pertussis PCR Not Detected (NotDetected); Chlamydia pneumoniae PCR Not Detected (NotDetected); Coronavirus 229E PCR Not Detected (NotDetected); Coronavirus CoV-2 (COVID19)PCR Not Detected (NotDetected); Coronavirus HKU1 PCR Not Detected (NotDetected); Coronavirus NL63 PCR Not Detected (NotDetected); Coronavirus OC43PCR Not Detected (NotDetected); Human Metapneumovirus PCR Not Detected (NotDetected); Influenza A PCR Not Detected (NotDetected); Influenza B PCR Not Detected (NotDetected); Mycoplasma pneumoniae PCR Not Detected (NotDetected); Parainfluenza Virus 1 PCR Not Detected (NotDetected); Parainfluenza Virus 2 PCR Not Detected (NotDetected); Parainfluenza Virus 3 PCR Not Detected (NotDetected); Parainfluenza Virus 4 PCR Not Detected (NotDetected); Respiratory Syncytial VirusPCR Not Detected (NotDetected); Rhinovirus/Enterovirus PCR Not Detected (NotDetected)
[2023-09-13] MEDS: ACETAMINOPHEN 1,000 MG/100 ML VIAL IV STA (10:29)
[2023-09-13] MEDS: OPTIRAY 320 125ml IV ONE (11:29)
--- NOTE | 2023-09-13 11:57 | CT Scan Report ---
CT angio chest PE protocol CLINICAL HISTORY: ro PE TECHNIQUE: Multidetector row helical CT of the chest was performed with angiographic protocol. Miller l and sagittal reformations were obtained. Coronal and sagittal MIPS were obtained from the axial chantale a set and were submitted for review. Automated dose lowering techniques and/or adjustment according to patient size were utilized for this exam. CT DOSE: 2035.18 mGy.cm Comparison: Comparison is made to CT chest 06/16/2009 FINDINGS: Lungs and pleura: Atelectasis versus scarring is seen in the dependent portions of the lungs. Heart and pericardium: Heart size is normal. No pericardial effusion. Vessels: No evidence of pulmonary embolism. Moderate atherosclerotic disease is seen. Mediastinum and adrian: Subcentimeter lymph nodes are seen. Chest wall and lower neck: Unremarkable. Abdomen: For findings below the diaphragm, please refer to CT of the abdomen dated the same. Bones: Degenerative changes in the thoracic spine. IMPRESSION: No acute abnormality and in particular no evidence of pulmonary embolus. ACT 112: Negative or not required by law. Electronically signed by: Memo Garcia M.D. 09/13/2023 11:55 AM
--- NOTE | 2023-09-13 11:59 | CT Scan Report ---
CT abd pelvis IV con only CLINICAL HISTORY: nv TECHNIQUE: Helical axial images of the abdomen and pelvis were obtained and displayed. Automated dose lowering techniques and/or adjustment according to patient size were utilized for this exam. This e xam was performed with intravenous contrast. COMPARISON: Comparison is made to CT abdomen pelvis 07/07/2023 FINDINGS: Lower chest: For findings above the diaphragm, please see CT chest performed same day. Liver: Unremarkable. No focal lesions are seen. Gallbladder and biliary tree: No calcified gallstones. Normal caliber wall. No intra- or extrahepatic biliary ductal dilation. Pancreas: Unremarkable, no focal lesions. Spleen: Unremarkable. Adrenals: Unremarkable. Kidneys and ureters: Renal cysts are seen. Bladder: Unremarkable. Reproductive organs: Unremarkable. Bowel: The appendix is normal. A small hiatal hernia is seen. Lymph nodes Retroperitoneal: Unremarkable. Pelvic: Unremarkable. Mesenteric: Unremarkable. Peritoneum: Normal. Vessels: Unremarkable. Abdominal wall: Unremarkable. Bones: Degenerative changes in the visualized spine. IMPRESSION: No acute abnormalities to explain nausea and vomiting. In particular no evidence of bowel obstruction . ACT 112: Negative or not required by law. Electronically signed by: Memo Garcia M.D. 09/13/2023 11:58 AM
--- NOTE | 2023-09-13 12:42 | History & Physical Report ---
Date of Service September 13, 2023 Assessment & Plan (1) Acute exacerbation of chronic obstructive pulmonary disease (COPD): Plan: Worsening head/chest cold x 1 week Patient's is also sick with a chest cold BioFire negative Mild leukocytosis at 10.83; afebrile, but patient does report she runs low Solu-Medrol 40 mg IV q12h Guaifenesin 1200 mg p.o. BID for cough DuoNeb 3mL Q6R for wheezing Incentive spirometry, flutter valve A.m. CBC, BMP, mag (2) Hypoxia: Plan: Patient's oxygen was desaturating to 85% in the ED on RA She does not use supplemental oxygen at baseline Titrate supplemental oxygen to maintain SpO2 89-92% Continuous pulse oximetry (3) Nausea and vomiting: Plan: Acute onset of vomiting the evening of 09/11 after taking dulcolax, miralax and an enema to help with severe constipation A/P CT reveals no evidence of bowel obstruction Gentle IVF resuscitation with Plasma-Lyte at 80mL/hr x 2 L Zofran as needed (4) Diarrhea: Plan: Began the morning of 09/12 after taking multiple laxatives and an enema for constipation no need for testing for stool infection (5) Uncontrolled type 2 diabetes mellitus with retinopathy, with long-term current use of insulin: Plan: Last A1c at 7.4% on 06/25/2023 Upcoming appointment to manage her Omnipod insulin pump Lantus BID Loose SSI while inpatient with target range [id number] T2DM diet BSG ACHS Adjust regimen as needed Pharmacy glycemic management consult given concomitant steroid use (6) Esophageal reflux disease: Plan: Patient endorses esophageal "burning"; likely secondary to vomiting, but could also be GERD symptoms Protonix 40mg IV x 1 in the ED Switch protonix p.o. --> IV while inpatient (7) Hypermagnesemia: Plan: Hold magnesium supplements for now (8) Hypertension: Plan: Continue losartan, amlodipine (9) Hypothyroidism: Plan: TSH recently normal in 06/2023 (10) Dyslipidemia: Plan: continue statin Plan Disposition: Admit to [facility] telemetry Full code T2DM diet VTE PPx: SCDs; hold chemical DVT PPx in the setting of potential hematemesis and trend H&H History of Present Illness Chief Complaint: Illness, nausea and vomiting Primary Care Provider: DO Fany Engle is a 68-year-old female with PMH of T2DM, asthma, insomnia, IBS, hypothyroidism, and dyslipidemia. She presented for a chest/head cold x 7 days. Patient then began vomiting every 2 hours since 9 PM last night. She was concerned that she had a bowel blockage. She endorses some burning, esophageal pain which she rates 8/10 on arrival, but 0/10 now. She reports that the vomit was acidic, and was concerned there might have been blood in her vomit, but she did have red electrolytes and cherries which could have discolored this. She believes she might of had coffee-ground emesis. She is unsure if anything went down the wrong pipe, or if she aspirated. Prior to this, she was having chest and head congestion over the past week. She uses a nebulizer at home 3 times daily, which she reports helps. History of COPD and chronic bronchitis. Follows with Dr. Kapoor (pulmonology). She reports that her has been sick with the same chest cold over the past week, and she believes she might of caught something from him. She had a temperature of 98.4 F at home, but she reports she usually runs low. She took her regular morning insulin (10 units), but no other morning medications. Not on blood thinners. Last BM was this morning, she reports she has had diarrhea since this morning. No recent change in medications. She does not use supplemental oxygen at baseline or CPAP at night. She denies smoking, tobacco use, and recent alcohol use. Patient is hypertensive at 156/84 at time of admission; SpO2 96% on 2 LNC. ED course: DuoNeb 3 mL neb Methylprednisolone 125 mg IV Acetaminophen 1000 mg IV Zofran 4 mg IV x 2 NSS 500 mL IV ROS: Patient endorses fever, chills, sweating, lightheadedness, HAs (chronic), burning esophageal pain / chest pain, productive cough (mucous is white to clear; potentially brown/blood tinged), wheezing, generalized abd pain, N/V, hematemesis, diarrhea, dysuria, burning with urination. Patient denies dizziness, fainting, changes in vision, SOB, pleuritic CP, blood in urine, or numbness/tingling in the arms or legs. Allergies Allergy/AdvReac Type Severity Reaction Status Date / Time levothyroxine Allergy Intermediate HIVES Verified 08/05/23 13:30 mold Allergy Intermediate CHEST Verified 08/05/23 13:30 CONGESTION house dust Allergy Unknown Unknown Verified 08/05/23 13:30 lisinopril Allergy Unknown Unknown Verified 08/05/23 13:30 metformin Allergy Unknown "METRFORMIN Verified 08/05/23 13:30 ALLERGY"?? bupropion AdvReac Severe muscle Verified 08/05/23 13:30 pains and cramps codeine AdvReac Intermediate GI Verified 08/05/23 13:30 INTOLERANCE erythromycin base AdvReac Intermediate DIZZINESS Verified 08/05/23 13:30 milk AdvReac Intermediate GI DISTRESS Verified 08/05/23 13:30 paroxetine AdvReac Intermediate BAD DREAMS Verified 08/05/23 13:30 prochlorperazine AdvReac Intermediate restless Verified 08/05/23 13:30 Home Medications Medication Instructions Recorded Confirmed Type sumatriptan succinate 50 mg tablet 50 mg PO Q2H PRN migraine headache 09/16/18 09/13/23 Rx #10 tabs sodium chloride 0.65 % nasal spray 1 sprays intranasal BID PRN 10/08/18 09/13/23 History aerosol ([place]) Allergy Symptoms aspirin 81 mg tablet,delayed 81 mg PO QAM 01/11/19 09/13/23 History release guaifenesin 600 mg tablet, 600 mg PO QAM 01/11/19 09/13/23 History extended release 12 hr (Mucinex) nebulizer accessories #1 ea 09/19/19 08/05/23 Rx trazodone 50 mg tablet 50 mg PO HS PRN insomnia #90 tabs 12/15/19 09/13/23 Rx hydrochlorothiazide 12.5 mg tablet 12.5 mg PO QAM 01/06/22 09/13/23 History rosuvastatin 5 mg tablet 5 mg PO QAM 01/06/22 09/13/23 History Omnipod Dash Pods (Gen 4) (insulin #15 ea 07/07/22 08/05/23 Rx pump cart,cont inf,BT) ipratropium 0.5 mg-albuterol 3 mg 3 ml inhalation TID PRN wheezing 07/21/22 09/13/23 Rx (2.5 mg base)/3 mL nebulization #180 mL soln albuterol sulfate 90 mcg/actuation 2 puff inhalation Q6H PRN 07/30/22 09/13/23 Rx aerosol inhaler shortness of breath or wheezing #8.5 grams fluticasone furoate 100 1 inh inhalation DAILY #60 ea 05/25/23 09/13/23 Rx mcg-vilanterol 25 mcg/dose inhalation powder (Breo Ellipta) montelukast 10 mg tablet 10 mg PO QAM #90 tabs 05/25/23 09/13/23 Rx Unithroid 88 mcg tablet 88 mcg PO QAM #90 tabs 06/15/23 09/13/23 Rx (levothyroxine) blood-glucose sensor ([employer] G7 06/15/23 08/05/23 History Sensor device) insulin pump cart,automated,BT #10 ea 06/16/23 08/05/23 Rx (Omnipod 5 G6 Pods (Gen 5) subcutaneous cartridge) insulin pump cartridge,automated #1 ea 06/16/23 08/05/23 Rx dose,BT with controller subcutaneous (Omnipod 5 G6 Intro Kit (Gen 5) subcutaneous cartridge with controller) cyclobenzaprine 10 mg tablet 10 mg PO HS 07/07/23 09/13/23 History magnesium oxide 400 mg PO HS 07/07/23 09/13/23 History naproxen 500 mg tablet 500 mg PO BID PRN Pain 07/07/23 09/13/23 History gabapentin 300 mg capsule 100 - 200 mg PO HS 08/05/23 09/13/23 History Humalog U-100 Insulin 100 unit/mL 0 unit (0 mL) subcut .COMPLEX #30 08/10/23 09/13/23 Rx subcutaneous solution (insulin mL lispro) Vitafusion 2 tabs PO QPM 09/13/23 09/13/23 History amlodipine 5 mg tablet 2.5 mg PO QAM 09/13/23 09/13/23 History losartan 25 mg tablet 25 mg PO QAM 09/13/23 09/13/23 History acetaminophen 325 mg tablet 650 mg (2 x 325 mg) PO Q6H PRN 09/14/23 Rx pain #120 tabs pantoprazole 40 mg tablet,delayed 40 mg PO HS HEARTBURN/INDIGESTION 09/14/23 09/13/23 Rx release #0 tabs prednisone 10 mg tablet 10 mg PO DIRECTED #20 tabs 09/14/23 Rx Past Med/Surg History Problem List (Updated 09/13/23 @ 14:29 by Casimiro Hu PA-C) Hypermagnesemia Diarrhea Hypoxia Acute exacerbation of chronic obstructive pulmonary disease (COPD) (Acute) Nausea and vomiting Serum calcium elevated History of diverticulitis Uncontrolled type 2 diabetes mellitus with retinopathy, with long-term current use of insulin (Acute) Internal hemorrhoids (Acute) Hypertension (Acute 06/19/12) Anemia Irritable bowel syndrome with constipation Insomnia Asthma Controlled type 2 diabetes mellitus with kidney complication, with long-term current use of insulin Moderate nonproliferative diabetic retinopathy with macular edema Asthma Allergic rhinitis with postnasal drip Upper airway cough syndrome Dyslipidemia Esophageal reflux disease (Acute) Hypothyroidism (Acute) Osteopenia (Acute) Statin intolerance (Acute) Medical History Hx MRSA infection leg would ~20 years ago, treated Nausea and vomiting after administration of anesthetic agent "for at least 24 hours" History of inguinal hernia right Cardiac murmur Diabetes mellitus, type 2 Seizure 02/2021, went to [place] ER, "found to have hs mini seizures following a migraine" Diverticulitis of colon with perforation 11/2021-hx Diabetic macular edema Diabetic nephropathy Colitis Right sided abdominal pain History of leukocytosis History of gastrointestinal hemorrhage pt "unsure about this diagnosis, doesn't know anything about this" History of female infertility History of cellulitis "pt doesn't know anything about this" COPD, moderate inh and nebulizer prn; f/u [facility] pulmonology Chronic bronchitis Depression with anxiety Headache, migraine hx Hypertension History of in vitro fertilization Surgical History Hx of laparoscopy History of bronchoscopy x2 History of esophagogastroduodenoscopy (EGD) Hx of colonoscopy History of incision and drainage growth on top of her head from shingles H/O dilation and curettage H/O sinus surgery Family History Mother Coronary arteriosclerosis Diabetes CHF (congestive heart failure) Sister Diabetes CHF (congestive heart failure) Cardiac arrest Father Macular degeneration Hypertension Stroke Suicide age 85 from self-inflicted gunshot wound Grandmother (Maternal) Breast cancer Social History Smoking Status: Never smoker Second Hand Exposure: No; Do You Dip or Chew Tobacco: No; Hx Alcohol Use: No Hx Substance Use: No Preferred Language: Polish Communication Ability: Effective Therapeutic Sales Specialist Required: No Beliefs That Will Affect Care: None marital status: Current Living Situation: Spouse Current Living Situation Comment: lives near [place] current occupational status: 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 How many Children do You have: 0 Feels Safe at Home: Yes Seatbelt Use: always Assistive Devices: Glasses and Nebulizer Review of Systems Review of Systems: See HPI above Physical Exam Physical Exam: General: Mild acute distress; pleasant affect; non-toxic appearing; well- nourished; cooperative; SpO2 96% on 2L NC HEENT: normocephalic, atraumatic; no scleral icterus; PERRLA; moist mucus membrane; vision and hearing grossly intact Neck: supple; no lymphadenopathy; trachea midline Skin: warm, dry without signs of tenting; no cyanosis; no rashes, bruising, lesions, or erythema noted CV: chest wall NTP; RRR; S1/S2 normal; no murmurs/rubs/gallops; pulses intact and symmetric at radial, DP, and PT Lungs: Mild respiratory distress; symmetrical chest wall expansion; bibasilar crackles auscultated in the lower lung zaldivar bilaterally; expiratory wheezing ABD: Soft; she reports that right upper quadrant is TTP, as well as left lower quadrant; BS present; no rebound/guarding; no distention MSK: no tics or fasciculations; no edema noted in the LEs b/l, nonerythematous Neuro: A&Ox3; normal mood and affect; fluent speech; no focal deficits; sensation grossly intact in the LEs b/l Results & Data Results & Data Vital Signs (Past 12 Hours) Vital Signs Temp Pulse Resp BP Pulse Ox O2 Del Method O2 Flow Rate 09/13/23 11:39 156/84 H 09/13/23 11:21 96 H 17 95 09/13/23 11:06 92 H 24 96 09/13/23 11:00 180/105 H 09/13/23 10:54 91 H 17 97 09/13/23 10:48 92 H 14 96 09/13/23 10:46 186/104 H 07/07/24 10:43 93 Nasal Cannula 2 09/13/23 10:42 85 L Room Air 09/13/23 10:41 204/108 H 09/13/23 09:54 92 09/13/23 09:48 93 H 14 96 09/13/23 09:30 152/88 H 09/13/23 09:30 83 18 100 09/13/23 09:28 86 09/13/23 09:24 88 16 97 09/13/23 09:18 85 15 97 09/13/23 09:14 95 Nasal Cannula 2 09/13/23 09:13 95 Nasal Cannula 2 09/13/23 09:13 87 L Room Air 09/13/23 09:06 90 17 91 09/13/23 09:03 133/87 09/13/23 08:29 36.8 C 102 H 18 167/93 H 92 Room Air Laboratory Results Abnormal lab results 09/13/23 Range/Units 09:01 WBC 10.83 H (4.8-10.8) K/ul Neut # (Auto) 8.84 H (1.40-6.50) K/uL Lymph # (Auto) 1.03 L (1.20-3.40) K/uL [place] # (Auto) 0.62 H (0.11-0.59) K/uL D-Dimer 810 H* (0-500) ug/L FEU Sodium 134 L (136-145) mmol/L Chloride 92 L (98-107) mmol/L Carbon Dioxide 34 H (21-32) mmol/L Glucose 178 H (70-99(Fasting)) mg/dl Diagnostic Findings Abdomen/Pelvis CT 09/13/23 09:07 CT abd pelvis IV con only CLINICAL HISTORY: nv TECHNIQUE: Helical axial images of the abdomen and pelvis were obtained and displayed. Automated dose lowering techniques and/or adjustment according to patient size were utilized for this exam. This exam was performed with intravenous contrast. COMPARISON: Comparison is made to CT abdomen pelvis 07/07/2023 FINDINGS: Lower chest: For findings above the diaphragm, please see CT chest performed same day. Liver: Unremarkable. No focal lesions are seen. Gallbladder and biliary tree: No calcified gallstones. Normal caliber wall. No intra- or extrahepatic biliary ductal dilation. Pancreas: Unremarkable, no focal lesions. Spleen: Unremarkable. Adrenals: Unremarkable. Kidneys and ureters: Renal cysts are seen. Bladder: Unremarkable. Reproductive organs: Unremarkable. Bowel: The appendix is normal. A small hiatal hernia is seen. Lymph nodes Retroperitoneal: Unremarkable. Pelvic: Unremarkable. Mesenteric: Unremarkable. Peritoneum: Normal. Vessels: Unremarkable. Abdominal wall: Unremarkable. Bones: Degenerative changes in the visualized spine. IMPRESSION: No acute abnormalities to explain nausea and vomiting. In particular no evidence of bowel obstruction. ACT 112: Negative or not required by law. Electronically signed by: Memo Garcia M.D. 09/13/2023 11:58 AM Chest X-Ray 09/13/23 09:14 XR chest 1V portable CLINICAL HISTORY: sob TECHNIQUE: Single frontal radiograph of the chest was obtained. Comparison: Comparison is made to chest radiograph 05/08/2021 FINDINGS: No lines and tubes are seen. The cardiomediastinal silhouette is normal. The lungs are clear. No evidence of pleural effusion or pneumothorax. IMPRESSION: No acute abnormalities and in particular no radiographic evidence of pneumonia. ACT 112: Negative or not required by law. Electronically signed by: Memo Garcia M.D. 09/13/2023 9:57 AM Chest CTA 09/13/23 10:20 CT angio chest PE protocol CLINICAL HISTORY: ro PE TECHNIQUE: Multidetector row helical CT of the chest was performed with angiographic protocol. Coronal and sagittal reformations were obtained. Coronal and sagittal MIPS were obtained from the axial data set and were submitted for review. Automated dose lowering techniques and/or adjustment according to patient size were utilized for this exam. CT DOSE: 2035.18 mGy.cm Comparison: Comparison is made to CT chest 06/16/2009 FINDINGS: Lungs and pleura: Atelectasis versus scarring is seen in the dependent portions of the lungs. Heart and pericardium: Heart size is normal. No pericardial effusion. Vessels: No evidence of pulmonary embolism. Moderate atherosclerotic disease is seen. Mediastinum and adrian: Subcentimeter lymph nodes are seen. Chest wall and lower neck: Unremarkable. Abdomen: For findings below the diaphragm, please refer to CT of the abdomen dated the same. Bones: Degenerative changes in the thoracic spine. IMPRESSION: No acute abnormality and in particular no evidence of pulmonary embolus. ACT 112: Negative or not required by law. Electronically signed by: Memo Garcia M.D. 09/13/2023 11:55 AM ECG Additional Comments: ECG revealed NSR at 99 bpm; QTc 482 Code Status & VTE Plan Code Status Full code VTE Prophylaxis Plan VTE Prophylaxis will be ordered: Yes Supervising Physician Co-Signing Physician Notes JACEY Supervision Note: I personally saw and examined the patient. I verified all richard points and agree with JACEY Hu with the following exceptions and/or additions: S-Pt p/w SOB, hypoxia and N/V after taking a lot of laxatives for severe constipation. History and ROS as above O- Vitals reviewed Gen: [AAOx3, NAD] HEENT: [anicteric sclerae, EOMI] CV: [RRR no mgr nl S1S2] Pulm: [+wheezes and some crackles at bases] Abd: [+BS soft NT ND no masses or hernias] Ext: [no edema] Skin: [no rashes, warm/dry] Neuro: [full strength throughout] A/P-68 yo female here with viral infection causing COPD exacerbation. Also with N/V after laxatives taken for severe constipation Plan outlined as above PG Care Time/CCT Total # of Minutes Spent Total Time Spent with Patient: Total time spent is greater than 50% in coordination of care (as documented) at patient's floor/unit and/or counseling patient: Coding [place] [address] INT INP/OBS CARE 3/75MIN Patient Type Established Medical Decision Making High Complexity Diagnoses Acute exacerbation of chronic obstructive pulmonary disease (COPD) J44.1 Hypoxia R09.02 Nausea and vomiting R11.2 Diarrhea R19.7 Uncontrolled type 2 diabetes mellitus with retinopathy, with long-term current use of insulin E11.319; E11.65; Z79.4 Esophageal reflux disease K21.9 Hypermagnesemia E83.41 Hypertension I10 Hypothyroidism E03.9 Dyslipidemia E78.5
[2023-09-13] MEDS: methylPREDNISolone 125 MG in SYRINGE 0 ML IV ONE (13:04)
[2023-09-13 13:35] LABS: Appearance Urine Clear (Clear); Bacteria Urine Automated None Seen (None Seen); Bilirubin Urine Negative (Negative); Blood Urine Negative (Negative); Cast Urine Automated 0-2 /lpf (0-2); Color Urine Yellow; Epithelial Cell Urine Auto 0-2 /hpf (0-2); Glucose Urine UA Trace (Negative); Ketones Urine 1+ (Negative); Leukocyte Esterase Urine Negative (Negative); Nitrite Urine Negative (Negative); Protein Urine 2+ (Negative); Specific Gravity Urine 1.025 (1.000-1.030); Urobilinogen Urine Negative (Negative); WBC Urine Automated 0-5 /hpf (0-5); pH Urine 8.5 (4.5-7.5)
[2023-09-13 13:56] LABS: Magnesium 2.6 mg/dl (1.7-2.4)
[2023-09-13] MEDS: amLODIPine BESYLATE 5 MG TAB PO ONE (13:56)
[2023-09-13] MEDS: LOSARTAN POTASSIUM 25 MG TAB PO STA (13:57)
[2023-09-13] MEDS: PANTOprazole 40 MG in SYRINGE 0 ML IV ONE (13:57)
[2023-09-13] MEDS: PLASMA-LYTE A 1,000 ML IV SCH (13:58)
[2023-09-13] MEDS ORDERED: GLUCOSE 40% GEL 15 GM TUBE PO PRN (15:02)
[2023-09-13] MEDS ORDERED: PHARMACY GLYCEMIC MGMT CONSULT PRN (15:02)
[2023-09-13] MEDS ORDERED: GLUCOSE 10 TAB/TUBE PO PRN (15:02)
[2023-09-13] MEDS ORDERED: ONDANSETRON INJ 2 MG/ML 2 ML VIAL IV PRN (15:02)
[2023-09-13] MEDS ORDERED: DEXTROSE 50% 50 ML SYRINGE IV PRN (15:02)
[2023-09-13] MEDS ORDERED: CARBOHYDRATES FOR HYPOGLYCEMIA PO PRN (15:02)
[2023-09-13] MEDS ORDERED: ACETAMINOPHEN 325 MG TAB PO PRN (15:02)
[2023-09-13] MEDS ORDERED: GLUCAGON FOR INJ 1 MG VIAL SQ PRN (15:02)
[2023-09-13] MEDS: ROSUVASTATIN CALCIUM 5 MG TAB PO SCH (16:35)
[2023-09-13] MEDS: LANTUS PER UNIT CHARGE SC ONE (18:28)
[2023-09-13] MEDS: INSULIN ASPART PER UNIT CHARGE SC SCH (19:22)
[2023-09-13] MEDS: ALBUT/IPRATROP 3MG/0.5MG NEB 3 ML VIAL INH SCH (19:48)
[2023-09-13] MEDS: methylPREDNISolone 40 MG in SYRINGE 0 ML IV SCH (21:59)
[2023-09-13] MEDS: CYCLOBENZAPRINE HCL 10 MG TAB PO SCH (22:00)
[2023-09-13] MEDS: GABAPENTIN 100 MG CAP PO SCH (22:00)
[2023-09-13] MEDS: traZODone HCL 50 MG TAB PO PRN (23:12)
[2023-09-13] MEDS: guaiFENesin 600 MG TABCR PO SCH (23:12)
[2023-09-13] MEDS: CETIRIZINE HCL 10 MG TABLET PO SCH (23:12)
[2023-09-13] MEDS ORDERED: POLYETHYLENE (MIRALAX) 17 GM PACK PO PRN (23:38)
[2023-09-14] MEDS: INSULIN ASPART PER UNIT CHARGE SC SCH (01:16)
[2023-09-14] MEDS ORDERED: SODIUM CHLORIDE 0.65% NA SOLN 45 ML (OCEAN) PRN (01:19)
[2023-09-14 06:42] LABS: Basophils # (auto) 0.01 K/uL (0.00-0.20); Basophils % (auto) 0.1 %; Hematocrit (blood only) 32.3 % (37.0-47.0); Hemoglobin 10.9 g/dl (12.0-16.0); Immature Granulocytes # (auto) 0.07 K/uL (0.01-0.20); Immature Granulocytes % (auto) 0.6 %; Lymphocytes # (auto) 0.87 K/uL (1.20-3.40); Lymphocytes % (auto) 6.9 %; Mean Corpuscular Hemoglobin 30.9 pg (25.0-34.0); Mean Corpuscular Hgb Conc 33.7 g/dL (32.0-36.0); Mean Corpuscular Volume 91.5 fL (80.0-100.0); Mean Platelet Volume 9.9 fL (9.4-12.4); Monocytes # (auto) 0.41 K/uL (0.11-0.59); Monocytes % (auto) 3.3 %; Neutrophils # (auto) 11.24 K/uL (1.40-6.50); Neutrophils % (auto) 89.1 %; Platelet Count 259 K/uL (130-400); RDW Coefficient of Variation 11.7 % (11.5-14.5); RDW Standard Deviation 39.2 fL (36.4-46.3); Red Blood Count 3.53 M/uL (4.20-5.40)
[2023-09-14 07:01] LABS: BUN Creatinine Ratio 16.1 (10-20); Calcium 8.6 mg/dl (8.6-10.3); Creatinine Clr Calc Pharmacy 44.1 ml/min; Est GFR (African American) 55.7 ml/min; Magnesium 2.6 mg/dl (1.7-2.4)
[2023-09-14] MEDS: ASPIRIN 81 MG ECTAB PO SCH (07:47)
[2023-09-14] MEDS: amLODIPine BESYLATE 5 MG TAB PO SCH (07:47)
[2023-09-14] MEDS: FLUTICASONE/VILANTEROL 100/25MCG 14 PUFFS/INHALER INH SCH (07:48)
[2023-09-14 07:49] LABS: Estimated Average Glucose 209 mg/dl; Hemoglobin A1C 8.9 % (4.5-5.6)
[2023-09-14] MEDS: predniSONE 20 MG TAB PO SCH (07:49)
[2023-09-14] MEDS: MONTELUKAST SODIUM 10 MG TABLET PO SCH (07:49)
[2023-09-14] MEDS: PANTOprazole 40 MG TAB PO SCH (07:49)
[2023-09-14] MEDS: LOSARTAN POTASSIUM 25 MG TAB PO SCH (07:49)
[2023-09-14] MEDS: INSULIN HUMAN NPH SC SCH (08:47)
--- NOTE | 2023-09-14 08:47 | Pharmacy Report ---
Pharmacy Glycemic Short Note 2 - Date of Service September 14, 2023 - Glycemic Short BSG Results (Last 24 hours): 09/13/23 09/13/23 09/13/23 09:01 17:34 19:06 Glucose 178 H POC Glucose 316 H* 422 H* 09/13/23 09/13/23 09/14/23 21:30 23:50 03:57 Glucose POC Glucose 358 H* 240 H 151 H 09/14/23 09/14/23 06:11 08:28 Glucose 209 H POC Glucose 271 H OUTPATIENT ANTIDIABETIC REGIMEN: * Humalog insulin pump via Omnipod * TDD: 33 units * Insulin to carb ratio of 1 unit per 15 grams CHO, correction factor of 50 mg/dL/unit, pre-meal target of 80-130 mg/dL * Maximum one-time bolus dose of 15 units * Per most recent diabetes note - patient does not carb count and instead "guesstimates" HbA1c: 8.9% (09/14/23) ASSESSMENT: * LINCOLN is a 68 year old female admitted with acute COPD exacerbation * Started on IV steroids in ED, now on prednisone 40 mg PO daily * Pertinent PMH includes uncontrolled T2DM and COPD * Patient utilizes insulin pump at home, will utilize SC basal/bolus regimen while inpatient * Blood sugars elevated yesterday following IV steroid administration (high of 422 mg/dL) * Received 47 units of insulin yesterday (15 units of basal in form of Lantus and 32 units of prandial/correctional Novolog) * Given steroid change to prednisone, will use NPH to mimic PK of steroid (~0.3 unit/kg to start) PLAN FOR INPATIENT GLYCEMIC CONTROL: * Hold insulin pump * Basal insulin - add NPH * NPH 20 units SC daily w/ prednisone * Lantus 0-5-10 units SC HS (see EHR for details) * Bolus insulin * NovoLog per scale ACHS or Q6hrs while NPO * Goal Range: Low 110 mg/dL - High 140 mg/dL * Correction Factor: 20 mg/dL/unit * Nutritional / Prandial insulin per carb ratio of 1 unit per 6 grams CHO consumed
[2023-09-14] MEDS ORDERED: NovoLIN-N (NPH) PER UNIT CHARGE SQ SCH (09:00)
[2023-09-14 11:23] LABS: Hematocrit (blood only) 34.1 % (37.0-47.0); Hemoglobin 11.4 g/dl (12.0-16.0)
[2023-09-14] MEDS ORDERED: ALBUT/IPRATROP 3MG/0.5MG NEB 3 ML VIAL INH PRN (11:49)
--- NOTE | 2023-09-14 12:19 | Gastrointestinal Consultation ---
<Statement entered by Norma Pereyra MD - 09/14/23 17:19> I have examined the patient, reviewed the History & Physical and in the interval since the performance of the History & Physical I have noted the following changes of clinical significance: no changes noted. I advised the patient to consider an outpatient EGD to rule out significant pathology given her symptoms and possible coffee ground emesis. That being said, she is tolerating POs so there does not seem to be a need for her to remain in house. Outpatient follow up has been requested. Date of Consultation September 14, 2023 Assessment & Plan (1) Nausea and vomiting: (2) Constipation: Plan Patient admitted with episodes of nausea/vomiting that has since resolved. she has a long standing history of constipation that she has not been seeing benefit with stool softeners. CT on admission was unremarkable. she did have a drop in hgb that may be dilutional. Her hgb is improved on her last check. she is not seeing any signs of active GI bleeding. - I recommended she continue with protonix 40mg once daily. - we also discussed regular dosing of miralax daily. we discussed she can use as many as three doses daily to help with constipation. - she does not have any interest in an EGD to evaluate. - she tells me she is hoping to be discharged this afternoon. she does agree to follow up as an outpatient. I will have my office reach out for an appointment in the coming weeks to assess how she is doing. History of Present Illness Reason for Consultation: hematochezia / drop in hgb Requesting Physician: Tirno Wick Attending Physician: Trino Wick History of Present Illness Patient is a 68 year old female with PMH of T2DM, asthma, insomnia, IBS, hypothyroidism, and dyslipidemia. She had a chest/head cold x 7 days. Patient proceeded to the ED for evaluation after she began vomiting every 2 hours since 9 PM last night on Thursday evening. she thinks there was a few dark areas in this but she denies any definitive blood. She tells me that after she arrived at the hospital her symptoms did improve. She has not had any further vomiting since 10 am yesterday. She feels that her issues may have been from a blockage as she has significant constipation that she has only been using stool softeners to treat. she will use miralax as needed but admits she does not use this regularly. She had unremarkable CT 09/13/23. she tells me that since admission she has had bowel movements and tells me she feels better since having had those. she denies an brbpr or melena. she admits to a long history of IBS-C and can go several days between bowel movements. she tells me she did have some heartburn since her episodes of vomiting, but she feels this is improved with PPI. she admits to having a PPI at home but does not use regularly. Her initial hgb was 13.1 on admission and this had fallen to 10.9 but has since improved to 11.4. she has not noticed any GI bleeding since admission. rest of GI ros negative. Allergies Allergy/AdvReac Type Severity Reaction Status Date / Time levothyroxine Allergy Intermediate HIVES Verified 08/05/23 13:30 mold Allergy Intermediate CHEST Verified 08/05/23 13:30 CONGESTION house dust Allergy Unknown Unknown Verified 08/05/23 13:30 lisinopril Allergy Unknown Unknown Verified 08/05/23 13:30 metformin Allergy Unknown "METRFORMIN Verified 08/05/23 13:30 ALLERGY"?? bupropion AdvReac Severe muscle Verified 08/05/23 13:30 pains and cramps codeine AdvReac Intermediate GI Verified 08/05/23 13:30 INTOLERANCE erythromycin base AdvReac Intermediate DIZZINESS Verified 08/05/23 13:30 milk AdvReac Intermediate GI DISTRESS Verified 08/05/23 13:30 paroxetine AdvReac Intermediate BAD DREAMS Verified 08/05/23 13:30 prochlorperazine AdvReac Intermediate restless Verified 08/05/23 13:30 Home Medications Medication Instructions Recorded Confirmed Type sumatriptan succinate 50 mg tablet 50 mg PO Q2H PRN migraine headache 09/16/18 09/13/23 Rx #10 tabs sodium chloride 0.65 % nasal spray 1 sprays intranasal BID PRN 10/08/18 09/13/23 History aerosol ([place] Saline) Allergy Symptoms aspirin 81 mg tablet,delayed 81 mg PO QAM 01/11/19 09/13/23 History release guaifenesin 600 mg tablet, 600 mg PO QAM 01/11/19 09/13/23 History extended release 12 hr (Mucinex) nebulizer accessories #1 ea 09/19/19 08/05/23 Rx trazodone 50 mg tablet 50 mg PO HS PRN insomnia #90 tabs 12/15/19 09/13/23 Rx hydrochlorothiazide 12.5 mg tablet 12.5 mg PO QAM 01/06/22 09/13/23 History pantoprazole 40 mg tablet,delayed 40 mg PO HS PRN 01/06/22 09/13/23 History release HEARTBURN/INDIGESTION rosuvastatin 5 mg tablet 5 mg PO QAM 01/06/22 09/13/23 History Omnipod Dash Pods (Gen 4) (insulin #15 ea 07/07/22 08/05/23 Rx pump cart,cont inf,BT) ipratropium 0.5 mg-albuterol 3 mg 3 ml inhalation TID PRN wheezing 07/21/22 09/13/23 Rx (2.5 mg base)/3 mL nebulization #180 mL soln albuterol sulfate 90 mcg/actuation 2 puff inhalation Q6H PRN 07/30/22 09/13/23 Rx aerosol inhaler shortness of breath or wheezing #8.5 grams fluticasone furoate 100 1 inh inhalation DAILY #60 ea 05/25/23 09/13/23 Rx mcg-vilanterol 25 mcg/dose inhalation powder (Breo Ellipta) montelukast 10 mg tablet 10 mg PO QAM #90 tabs 05/25/23 09/13/23 Rx Unithroid 88 mcg tablet 88 mcg PO QAM #90 tabs 06/15/23 09/13/23 Rx (levothyroxine) blood-glucose sensor (Dexcom G7 06/15/23 08/05/23 History Sensor device) insulin pump cart,automated,BT #10 ea 06/16/23 08/05/23 Rx (Omnipod 5 G6 Pods (Gen 5) subcutaneous cartridge) insulin pump cartridge,automated #1 ea 06/16/23 08/05/23 Rx dose,BT with controller subcutaneous (Omnipod 5 G6 Intro Kit (Gen 5) subcutaneous cartridge with controller) cyclobenzaprine 10 mg tablet 10 mg PO HS 07/07/23 09/13/23 History magnesium oxide 400 mg PO HS 07/07/23 09/13/23 History naproxen 500 mg tablet 500 mg PO BID PRN Pain 07/07/23 09/13/23 History gabapentin 300 mg capsule 100 - 200 mg PO HS 08/05/23 09/13/23 History Humalog U-100 Insulin 100 unit/mL 0 unit (0 mL) subcut .COMPLEX #30 08/10/23 09/13/23 Rx subcutaneous solution (insulin mL lispro) Vitafusion 2 tabs PO QPM 09/13/23 09/13/23 History amlodipine 5 mg tablet 2.5 mg PO QAM 09/13/23 09/13/23 History losartan 25 mg tablet 25 mg PO QAM 09/13/23 09/13/23 History Patient History Medical History Hx MRSA infection leg would ~20 years ago, treated Nausea and vomiting after administration of anesthetic agent "for at least 24 hours" History of inguinal hernia right Cardiac murmur Diabetes mellitus, type 2 Seizure 02/2021, went to [place] ER, "found to have hs mini seizures following a migraine" Diverticulitis of colon with perforation 11/2021-hx Diabetic macular edema Diabetic nephropathy Colitis Right sided abdominal pain History of leukocytosis History of gastrointestinal hemorrhage pt "unsure about this diagnosis, doesn't know anything about this" History of female infertility History of cellulitis "pt doesn't know anything about this" COPD, moderate inh and nebulizer prn; f/u [facility] Chronic bronchitis Depression with anxiety Headache, migraine hx Hypertension History of in vitro fertilization Surgical History Hx of laparoscopy History of bronchoscopy x2 History of esophagogastroduodenoscopy (EGD) Hx of colonoscopy History of incision and drainage growth on top of her head from shingles H/O dilation and curettage H/O sinus surgery Family History Mother Coronary arteriosclerosis Diabetes CHF (congestive heart failure) Sister Diabetes CHF (congestive heart failure) Cardiac arrest Father Macular degeneration Hypertension Stroke Suicide age 85 from self-inflicted gunshot wound Grandmother (Maternal) Breast cancer Social History Smoking Status: Never smoker Second Hand Exposure: No; Do You Dip or Chew Tobacco: No; Hx Alcohol Use: No Hx Substance Use: No Preferred Language: Mozambican Communication Ability: Effective Wood Turner Required: No Beliefs That Will Affect Care: None marital status: Current Living Situation: Spouse Current Living Situation Comment: lives near [place] current occupational 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 How many Children do You have: 0 Feels Safe at Home: Yes Seatbelt Use: always Assistive Devices: Denture - Upper and Glasses Review of Systems Review of Systems: All systems reviewed & are unremarkable except as noted in HPI & below Physical Exam Constitutional: WD/WN, vitals as above Respiratory: normal respiratory effort, lungs clear to auscultation Cardiovascular: RRR, no murmur, no edema Gastrointestinal (Abdomen): normal bowel sounds, soft, nontender, no hepatosplenomegaly Psychiatric: Orientation: alert and oriented x 3 Affect: euthymic affect Results & Data Vital Signs (Past 12 Hours) Vital Signs Temp Pulse Pulse Pulse Pulse Resp Resp 09/14/23 11:54 98.2 F 95 H 16 09/14/23 09:48 09/14/23 09:32 109 H 107 H 18 09/14/23 08:04 99.1 F 100 H 16 09/14/23 07:00 59 L 16 09/14/23 04:08 99.0 F 84 16 09/14/23 02:07 96 H 09/14/23 01:20 79 18 Resp BP Pulse Ox Pulse Ox Pulse Ox O2 Del Method O2 Flow Rate 09/14/23 11:54 110/65 90 Room Air 09/14/23 09:48 Room Air 09/14/23 09:32 16 94 93 09/14/23 08:04 169/80 H 96 Nasal Cannula 1.5 09/14/23 07:00 92 Nasal Cannula 1 09/14/23 04:08 126/66 93 Room Air 09/14/23 02:07 09/14/23 01:20 97 Nasal Cannula 2 Coding Level of Care Code 93790 INT INP/OBS CARE 2/55MIN Diagnoses Nausea and vomiting R11.2 Constipation K59.00
--- NOTE | 2023-09-14 13:47 | Discharge Summary ---
Date of Service September 14, 2023 Admission HPI Per Admitting Provider Fany is a 68-year-old female with PMH of T2DM, asthma, insomnia, IBS, hypothyroidism, and dyslipidemia. She presented for a chest/head cold x 7 days. Patient then began vomiting every 2 hours since 9 PM last night. She was concerned that she had a bowel blockage. She endorses some burning, esophageal pain which she rates 8/10 on arrival, but 0/10 now. She reports that the vomit was acidic, and was concerned there might have been blood in her vomit, but she did have red electrolytes and cherries which could have discolored this. She believes she might of had coffee-ground emesis. She is unsure if anything went down the wrong pipe, or if she aspirated. Prior to this, she was having chest and head congestion over the past week. She uses a nebulizer at home 3 times daily, which she reports helps. History of COPD and chronic bronchitis. Follows with Dr. Kapoor (pulmonology). She reports that her has been sick with the same chest cold over the past week, and she believes she might of caught something from him. She had a temperature of 98.4 F at home, but she reports she usually runs low. She took her regular morning insulin (10 units), but no other morning medications. Not on blood thinners. Last BM was this morning, she reports she has had diarrhea since this morning. No recent change in medications. She does not use supplemental oxygen at baseline or CPAP at night. She denies smoking, tobacco use, and recent alcohol use. Patient is hypertensive at 156/84 at time of admission; SpO2 96% on 2 LNC. ED course: DuoNeb 3 mL neb Methylprednisolone 125 mg IV Acetaminophen 1000 mg IV Zofran 4 mg IV x 2 NSS 500 mL IV ROS: Patient endorses fever, chills, sweating, lightheadedness, HAs (chronic), burning esophageal pain / chest pain, productive cough (mucous is white to c lear; potentially brown/blood tinged), wheezing, generalized abd pain, N/V, hematemesis, diarrhea, dysuria, burning with urination. Patient denies dizziness, fainting, changes in vision, SOB, pleuritic CP, blood in urine, or numbness/tingling in the arms or legs. Principal Diagnosis COPD exacerbation Discharge Exam General: pleasant affect; non-toxic appearing; HEENT: normocephalic, atraumatic; no scleral icterus; PERRLA; moist mucus membrane; vision and hearing grossly intact Neck: supple; no lymphadenopathy; trachea midline CV: S1/S2 normal Lungs: clear ABD: Soft; BS present; no rebound/guarding; no distention Neuro: A&Ox3; Discharge Data Allergies Allergy/AdvReac Type Severity Reaction Status Date / Time levothyroxine Allergy Intermediate HIVES Verified 08/05/23 13:30 mold Allergy Intermediate CHEST Verified 08/05/23 13:30 CONGESTION house dust Allergy Unknown Unknown Verified 08/05/23 13:30 lisinopril Allergy Unknown Unknown Verified 08/05/23 13:30 metformin Allergy Unknown "METRFORMIN Verified 08/05/23 13:30 ALLERGY"?? bupropion AdvReac Severe muscle Verified 08/05/23 13:30 pains and cramps codeine AdvReac Intermediate GI Verified 08/05/23 13:30 INTOLERANCE erythromycin base AdvReac Intermediate DIZZINESS Verified 08/05/23 13:30 milk AdvReac Intermediate GI DISTRESS Verified 08/05/23 13:30 paroxetine AdvReac Intermediate BAD DREAMS Verified 08/05/23 13:30 prochlorperazine AdvReac Intermediate restless Verified 08/05/23 13:30 Consultations 09/13/23 12:28 ED Decision to Admit Stat 09/14/23 11:50 Consult Gastroenterology Routine Ordered Studies 09/13/23 09:07 CT abd pelvis IV con only Stat 09/13/23 10:20 CT angio chest PE protocol Stat Hospital Course (1) Acute exacerbation of chronic obstructive pulmonary disease (COPD): Worsening head/chest cold x 1 week Patient's is also sick with a chest cold BioFire negative In house plan: Solu-Medrol 40 mg IV q12h Guaifenesin 1200 mg p.o. BID for cough DuoNeb 3mL Q6R for wheezing Patient improved. WIll discharge on a steroid taper (2) Hypoxia: Patient's oxygen was desaturating to 85% in the ED on RA She does not use supplemental oxygen at baseline Titrate supplemental oxygen to maintain SpO2 89-92% Continuous pulse oximetry (3) Nausea and vomiting: Acute onset of vomiting the evening of 09/11 A/P CT reveals no evidence of bowel obstruction Gentle IVF resuscitation with Plasma-Lyte at 80mL/hr x 2 L Zofran as needed (4) Diarrhea: Began the morning of 09/12 PCR stool/C. difficile ordered: negative (5) Uncontrolled type 2 diabetes mellitus with retinopathy, with long-term current use of insulin: Last A1c at 7.4% on 06/25/2023 Upcoming appointment to manage her Omnipod insulin pump (6) Esophageal reflux disease: Patient endorses esophageal "burning"; likely secondary to vomiting, but could also be GERD symptoms Protonix 40mg IV x 1 in the ED (7) Hypermagnesemia: Hold magnesium supplements while in house. will recommend PCP discusses this and checks magnesium again at followup appointment. (8) Hypertension: Continue losartan, amlodipine (9) Hypothyroidism: (10) Dyslipidemia: Total Time Total Time Spent Total Time Spent (In Minutes): 32 Discharge Plan Discharge Items Patient Disposition: Home - Self-Care Reason For Visit: acute onset n/v, copd exacerbation Discharge Diagnosis: copd exacerbation Activity: Resume your previous activity Non-emergency contact: Primary Care Provider Call non-emergency contact if: you have any medication questions Follow-up/Referrals: Ag Vigil, [Primary Care Provider] - (PLEASE CALL YOUR PRIMARY CARE PROVIDER TO SCHEDULE A HOSPITAL DISCHARGE FOLLOW-UP APPOINTMENT WITHIN 7-10 DAYS) Diet: Carb Consistent or DM2 Ambulatory Orders: Basic Metabolic Panel (Routine) Timeframe: 2 Days Location: Determined by Patient Ordered By: Trino Wick Complete Blood Count no Diff (Routine) Timeframe: 2 Days Location: Determined by Patient Ordered By: Trino Wick Add Attending Provider Instructions: We will place you on a steroid taper. We recommend you followup with your PCP in 1-2 weeks. We recommend you obtain blood work in 2 days to ensure your blood count is stable. Pending Studies at Discharge: No Stand-Alone Forms: My [employer], Smoking Cessation Medications and DC Order Prescriptions: New acetaminophen 325 mg Tablet 650 mg PO Q6H PRN (Reason: pain) Qty: 120 0RF prednisone 10 mg tablet 10 mg PO DIRECTED Qty: 20 0RF Rx Instructions: Take 4 tablets once a day for 2 days then 3 tabs once a day for 2 days then 2 tabs for 2 days then 1 tab for 2 days Continued (DME) nebulizer accessories Kit See Rx Instructions .ROUTE .MEDSUPPLY Qty: 1 0RF Rx Instructions: Nebulizer tubing. Lifetime need. trazodone 50 mg tablet 50 mg PO HS PRN (Reason: insomnia) Qty: 90 1RF (DME) Omnipod Dash Pods (Gen 4) Cartridge See Rx Instructions .Route Qty: 15 12RF Rx Instructions: Change pod every 3 days albuterol sulfate 90 mcg/actuation HFA aerosol inhaler 2 puff inhalation Q6H PRN (Reason: shortness of breath or wheezing) Qty: 8.5 3RF Rx Instructions: Insurance covers Albuterol HFA (ProAir) insulin lispro [Humalog U-100 Insulin] 100 unit/mL solution 0 unit subcut .COMPLEX MDD 70 units Qty: 30 3RF Rx Instructions: subcutaneously; via insulin pump sumatriptan succinate 50 mg tablet 50 mg PO Q2H PRN (Reason: migraine headache) Qty: 10 5RF sodium chloride [[place] Saline] 0.65 % aerosol,spray 1 sprays INTNAS BID PRN (Reason: Allergy Symptoms) fluticasone furoate-vilanterol [Breo Ellipta] 100-25 mcg/dose blister with device 1 inh inhalation DAILY Qty: 60 10RF montelukast 10 mg tablet 10 mg PO QAM Qty: 90 4RF ipratropium-albuterol 0.5 mg-3 mg(2.5 mg base)/3 mL solution for nebulization 3 ml inhalation TID PRN (Reason: wheezing) Qty: 180 4RF (DME) Dexcom G7 Sensor Device See Rx Instructions .Route Rx Instructions: Change sensor every 10 days levothyroxine [Unithroid] 88 mcg tablet 88 mcg PO QAM Qty: 90 1RF Rx Instructions: MUST BE NAME BRAND (DME) Omnipod 5 G6 Intro Kit (Gen 5) Cartridge See Rx Instructions .ROUTE .MEDSUPPLY Qty: 1 0RF Rx Instructions: As directed (DME) Omnipod 5 G6 Pods (Gen 5) Cartridge See Rx Instructions .ROUTE .MEDSUPPLY Qty: 10 11RF Rx Instructions: Change pod every 3 days aspirin 81 mg Tablet,Delayed Release (Dr/Ec) 81 mg PO QAM guaifenesin [Mucinex] 600 mg Tablet Extended Release 12hr 600 mg PO QAM rosuvastatin 5 mg tablet 5 mg PO QAM amlodipine 5 mg tablet 2.5 mg PO QAM losartan 25 mg tablet 25 mg PO QAM Vitafusion 2 tabs PO QPM Rx Instructions: Vitamin D 25mcg and Calcium 500mg. cyclobenzaprine 10 mg tablet 10 mg PO HS magnesium oxide 400 mg magnesium Tablet 400 mg PO HS gabapentin 300 mg capsule 100 - 200 mg PO HS Changed pantoprazole 40 mg tablet,delayed release (DR/EC) 40 mg PO HS Qty: 0 0RF Held hydrochlorothiazide 12.5 mg Tablet 12.5 mg PO QAM Hold Instructions: Resume on 09/21/23. until followup with PCP naproxen 500 mg Tablet 500 mg PO BID PRN (Reason: Pain) Hold Instructions: Resume on 09/23/23. Discharge Orders: Discharge Order (Routine); Ordered 09/14/23 Ordered By: Trino Wick Admission Data Admit Date/Time: 09/13/23 14:12 Attending Provider: Trino Wick Admit Provider: Toyin Cristobal Primary Care Provider: Ag Vigil Other Providers: Toyin Cristobal; Thiago Vallejo; Juan Pierson; Deana Gray; Ellen Arellano; Anna Vilchis Kelli J.; Mili Isaacs; Gucci Cash; Olman Davis; Hemant Mejia; Ema Cueva Alyssa; Brittany Muhammad; Billie Mo; Fany Angel; Sandra Benavidez; William Wilkes; Benigno Feliz; Palma Schmitt; Renata Kraft Jr; Good Tatum; Eric Stuart; James Oh; Trenton Coy; Norma Pereyra Other Interventions: Discharge Summary Assessment (RN) Last Done: 09/14/23 14:10 Coding Level of Care Code 74287 INP/OBS DISCH >30 MIN Diagnoses Acute exacerbation of chronic obstructive pulmonary disease (COPD) J44.1 Hypoxia R09.02 Nausea and vomiting R11.2 Diarrhea R19.7 Uncontrolled type 2 diabetes mellitus with retinopathy, with long-term current use of insulin E11.319; E11.65; Z79.4 Esophageal reflux disease K21.9 Hypermagnesemia E83.41 Hypertension I10 Hypothyroidism E03.9 Dyslipidemia E78.5
[2023-09-14] MEDS ORDERED: LANTUS PER UNIT CHARGE SC ONE (21:00)
--- NOTE | 2023-09-15 10:49 | Electrocardiogram Report ---
Test Reason : Blood Pressure : / mmHG Vent. Rate : 099 BPM Atrial Rate : 099 BPM P-R Int : 138 ms QRS Dur : 078 ms QT Int : 376 ms P-R-T Axes : 076 046 061 degrees QTc Int : 482 ms Normal sinus rhythm Low voltage QRS Nonspecific T wave abnormality Abnormal ECG When compared with ECG of 08-MAY-2021 05:51, Nonspecific T wave abnormality, worse in Anterolateral leads Confirmed by Sim Dobbs ([id number]) on 09/15/2023 10:49:07 AM Referred By: Toyin Cristobal Confirmed By:Dipesh Dobbs
== END 2023-09-14 14:45 | disposition home or self-care (01) | DRG 192 ==
LOC: SUATTDRO → ED 08:27 → EDINP 08:27 → OBSVTOIN 13:30 → SUATTDRO 13:30 → INTOOBSV 14:12 → 2N 15:02